=== PATIENT | female | born 1990 ===

== ENCOUNTER 2020-06-02 07:05 | Emergency (ER) | payer MEDICAID, SELFPAY ==
--- NOTE | 2020-06-02 07:09 | ED_ITS ---
HPI - Asthma General Chief Complaint: Asthma Stated Complaint: asthma Time Seen by Provider: 06/02/20 07:09 Source: patient Mode of arrival: ambulatory Limitations: no limitations History of Present Illness MD complaint: asthma attack , shortness of breath and wheezing Onset (ago): week(s) (1) Severity: moderate Context: ran out of meds and allergen exposure Associated symptoms: dry cough Asthma History: childhood onset Treatments Prior to Arrival: inhaled bronchodilator, inhaled steroid and other (has not taken any allergy medications this season) Related Data Current Asthma Therapy: inhaled bronchodilator and inhaled steroid Previous Rx's Medication Instructions Recorded albuterol sulfate 2.5 mg INHALATION Q6H PRN #75 ml 06/02/20 cetirizine 10 mg PO DAILY #30 tab 06/02/20 fluticasone propionate 1 spray INTRANASAL DAILY PRN #9.9 06/02/20 ml prednisone 60 mg PO DAILY 5 Days #15 tab 06/02/20 Allergies Allergy/AdvReac Type Severity Reaction Status Date / Time Iodinated Contrast Media Allergy Intermediate SHORTNESS Verified 06/02/20 07:20 [IV CONTRAST] OF BREATH seafood Allergy Shortness Verified 06/02/20 07:20 of Breath Review of Systems Review of Systems: Constitutional : No Fever, No Chills ENT/Mouth : No Hoarseness, No sore throat, No Rhinorrhea Eyes: No Redness, No Discharge, No Vision Changes Cardiovascular : No Chest Pain, positive SOB, positive Dyspnea on Exertion, No Edema Respiratory : positive Cough, No Sputum, positive Wheezing, Gastrointestinal : No Nausea, No Vomiting, No Diarrhea, No abdominal Pain Genitourinary : No Dysuria, No Hematuria Musculoskeletal : No joint pain, No Myalgias Skin : No rash Neuro : No Weakness, No Numbness, No Headache Psych : No anxiety, depression Heme/Lymph: No Bruising, No Bleeding Endocrine : No Polyuria, No Polydipsia All other systems reviewed and are negative [facility] Past Medical History Medical History (Updated 06/02/20 @ 08:59 by Irish Scruggs DO) Asthma Surgical History History of bilateral tubal ligation Social History Social History (Updated 06/02/20 @ 07:32 by Irish Scruggs DO) Smoking Status: Never smoker Use of substances other than those prescribed or required for medical reasons: No Advance Directives: No Advance Directives Information Provided: Yes Physical Exam Vital Signs: Vital Signs: Vital Signs Temp Pulse Resp BP Pulse Ox 06/02/20 07:20 98.1 F 89 18 136/78 98 Body Mass Index 28.4 Appearance: Alert. Oriented X3. Mild acute distress. Eyes: Pupils equal, round and reactive to light. ENT: Pharynx normal. Neck: Normal inspection. Neck supple. CVS: Normal heart rate and rhythm. Pulses normal. Respiratory: mild respiratory distress. diminished throughout, tachypneic, retractions, diffuse exp and insp wheezes Abdomen: Soft and nontender. Skin: Skin warm and dry. Normal skin color. Normal skin turgor. Extremities: No lower extremity edema. No calf ttp Neuro: Oriented X 3. No motor deficit. No sensory deficit. Course Course Course Narrative: 100%, clear lungs, feels much better after treatment wants to go home MDM - Asthma MDM Narrative Medical decision making narrative: 29 yo female with hx of asthma no oral steroids in a few years also has seasonal allergies but not on any medications, ran out of nebulizer medications, at this time she will need hour long 10mg neb, IV steroids, IV magnesium, labs, CXR, if she improves will start her on flonase/zyrtect/prednisone and refill her asthma medications, dispo per results and findings Lab Data Result diagrams: 06/02/20 07:32 06/02/20 07:32 Labs: Lab Results 06/02/20 06/02/20 Range/Units 07:32 07:32 WBC 5.1 (4.8-10.8) X10*3/uL RBC 4.70 (4.20-5.50) X10*6/uL Hgb 12.7 (12.0-16.0) g/dl Hct 39.4 (37-47) % MCV 83.8 (80-98) fL MCH 27.0 (27.0-33.0) pg MCHC 32.2 (31.0-35.0) g/dl RDW 13.4 (11.0-16.0) % Plt Count 277 (160-400) X10*3/uL MPV 10.5 (9.4-12.3) fL Immature Gran % (Auto) 0.2 (0.0-0.4) % Neut % (Auto) 53.1 (45-73) % Lymph % (Auto) 33.2 (20-40) % [place] % (Auto) 5.5 (2-11) % Eos % (Auto) 7.4 H (0-4) % Baso % (Auto) 0.6 (0-2) % Lymph # (Auto) 1.7 (1.2-4.9) X10*3/uL [place] # (Auto) 0.3 (0.1-1.2) X10*3/uL Eos # (Auto) 0.4 (0.0-0.4) X10*3/uL Baso # (Auto) 0.0 (0.0-0.2) X10*3/uL Abs Immat Gran (auto) 0.01 (0.00-0.03) X10*3/uL Absolute Neuts (auto) 2.7 (2.0-8.3) X10*3/uL Absolute Nucleated RBC 0.000 (0.0-0.012) X10*3/uL Nucleated RBC % (auto) 0.0 (0.0-0.2) /100WBC Sodium 137 (135-145) mmol/L Potassium 4.0 (3.3-5.1) mmol/l Chloride 105 (96-108) mmol/L Carbon Dioxide 26 (22-29) mmol/L Anion Gap 10 L (12-20) BUN 10 (9-16) mg/dL Creatinine 0.71 (0.5-1.4) mg/dL Estim Creat Clear Calc 101.5 Estimated GFR > 60 Random Glucose 91 (60-115) mg/dL Calcium 8.8 (8.4-10.2) mg/dL Critical Care Time Critical Care Time Critical Care Time: Yes Total Critical Care Time: 30 Attestation: I personally attest to this time spent taking care of the patient Discharge Plan Discharge Clinical Impression: Asthma with acute exacerbation Patient Disposition: Home, Self-Care Instructions: Asthma (ED) Prescriptions: New cetirizine 10 mg tablet 10 mg PO DAILY Qty: 30 RF: 2 fluticasone propionate 50 mcg/actuation spray,suspension 1 spray intranasal DAILY PRN (Reason: allergy symptoms) Qty: 9.9 RF: 2 albuterol sulfate 2.5 mg /3 mL (0.083 %) solution for nebulization 2.5 mg inhalation Q6H PRN (Reason: bronchospasm) Qty: 75 RF: 1 prednisone 20 mg tablet 60 mg PO DAILY 5 Days Qty: 15 RF: 0 Referrals: Malissa Taylor [Emergency Nurse] - 2 days (if not better as needed) Stand Alone Forms: Work/School Release
--- NOTE | 2020-06-02 07:18 | XR_ITS ---
EXAMINATION: XR CHEST CLINICAL INFORMATION: Dyspnea COMPARISON: Previous chest x-ray October 2011 TECHNIQUE: Frontal view of the chest was obtained. FINDINGS: No significant abnormality is noted involving the heart, lungs, mediastinum, bony thorax or soft tissues. IMPRESSION: Unremarkable examination.
[2020-06-02 07:20] VITALS: BP 136/78; PULSE 89; RESP 18; TEMP 36.7; O2SAT 98; BMI 28.4
[2020-06-02] MEDS: Albuterol Sulfate (0.083%) 2.5 MG/3 ML VIAL.NEB 10 MG INHALE (07:34)
[2020-06-02 07:42] LABS: MANUAL DIFF FLAG NO
[2020-06-02 07:43] LABS: Basophils Percent Auto 0.6 % (0-2); Eosinophils Absolute Auto 0.4 X10*3/uL (0.0-0.4); Eosinophils Percent Auto 7.4 % (0-4); Hematocrit 39.4 % (37-47); Hemoglobin 12.7 g/dl (12.0-16.0); Imm Gran Abs Auto 0.01 X10*3/uL (0.00-0.03); Imm Gran Pct Auto 0.2 % (0.0-0.4); Lymphocytes Absolute Auto 1.7 X10*3/uL (1.2-4.9); Lymphocytes Percent Auto 33.2 % (20-40); Mean Corpuscular HGB Conc 32.2 g/dl (31.0-35.0); Mean Corpuscular Volume 83.8 fL (80-98); Mean Platelet Volume 10.5 fL (9.4-12.3); Monocytes Absolute Auto 0.3 X10*3/uL (0.1-1.2); Monocytes Percent Auto 5.5 % (2-11); Neutrophils Absolute Auto 2.7 X10*3/uL (2.0-8.3); Neutrophils Percent Auto 53.1 % (45-73); Platelet Count 277 X10*3/uL (160-400); Red Cell Distribution Width 13.4 % (11.0-16.0); White Blood Count 5.1 X10*3/uL (4.8-10.8)
[2020-06-02] MEDS: methylPREDNISolone Sod Succ/PF 125 MG/2 ML VIAL IVPUSH (07:43)
[2020-06-02] MEDS: Magnesium Sulfate/H2O 2 GM/50 ML PIGGYBACK IV (07:43)
[2020-06-02 08:17] LABS: Anion Gap 10 (12-20); Blood Urea Nitrogen 10 mg/dL (9-16); Calcium 8.8 mg/dL (8.4-10.2); Carbon Dioxide 26 mmol/L (22-29); Chloride 105 mmol/L (96-108); Creatinine Clr Calc Pharmacy 101.5; Estimated Glomerular Filt Rate > 60; Glucose Random 91 mg/dL (60-115); Sodium 137 mmol/L (135-145)
[2020-06-02 09:04] VITALS: BP 132/62; PULSE 92; RESP 18; O2SAT 99
== END 2020-06-02 09:27 | disposition home or self-care (01) ==
PROVIDERS: Emergency Provider Emergency Medicine; PCP Internal Medicine
DX: J45.901 Unspecified asthma with (acute) exacerbation (principal); Z91.14 Patient's other noncompliance with medication regimen
CPT/HCPCS: 36415; 71045; 80048; 85025; 96365; 96366; 96375; 99284; 99291; J2930; J3475

== ENCOUNTER 2020-11-16 06:58 | Outpatient (REF) | payer MEDICAID, SELFPAY ==
[2020-11-16 08:34] LABS: Alanine Aminotransferase 20 U/L (0-31); Alkaline Phosphatase 57 U/L (39-117); Anion Gap 13 (12-20); Aspartate Amino Transferase 19 U/L (5-31); Bilirubin Total 0.7 mg/dL (0.0-1.0); Blood Urea Nitrogen 12 mg/dL (9-16); Calcium 8.8 mg/dL (8.4-10.2); Carbon Dioxide 23 mmol/L (22-29); Chloride 106 mmol/L (96-108); Cholesterol 161 mg/dL; Estimated Glomerular Filt Rate > 60; Glucose Random 89 mg/dL (60-115); HDL Cholesterol 56 mg/dL; LDL Cholesterol Calculated 91 mg/dl; Potassium 4.3 mmol/L (3.3-5.1); Sodium 138 mmol/L (135-145); Total Protein 7.2 g/dL (6.5-8.0); Triglycerides 73 mg/dL
[2020-11-16 08:55] LABS: Thyroid Stimulating Hormone 0.57 uIU/mL (0.32-4.0)
== END 2020-11-16 06:59 | disposition home or self-care (01) ==
LOC: HO.LAB 06:58
PROVIDERS: PCP Internal Medicine; Visit Provider Internal Medicine
DX: E05.90 Thyrotoxicosis, unspecified without thyrotoxic crisis or storm (principal); R63.5 Abnormal weight gain
CPT/HCPCS: 36415; 80053; 80061; 84443

== ENCOUNTER 2020-11-21 19:03 | Emergency (ER) | payer MEDICAID, SELFPAY ==
--- NOTE | ~2020-11-21 | US_ITS ---
EXAMINATION: US ABDOMEN COMPLETE CLINICAL INFORMATION: Nausea, vomiting, epigastric and right flank pain. COMPARISON: None TECHNIQUE: Real-time imaging of the abdominal viscera. FINDINGS: PANCREAS: Normal. ABDOMINAL AORTA: The proximal, mid, and distal segments are normal in caliber. INFERIOR VENA CAVA: Visualized portions are normal. LIVER: Normal. The liver is normal in size. The liver contour is normal. Parenchymal echogenicity is normal. No focal hepatic lesion. There is no intrahepatic biliary duct dilatation seen. GALLBLADDER: The gallbladder is contracted from recent ingestion food mild gallbladder wall thickening measuring 0.4 cm is noted. COMMON BILE DUCT: Normal in caliber measuring 0.4 cm in diameter. RIGHT KIDNEY: Normal. No hydronephrosis. No renal calculi or focal parenchymal lesions. The kidney measures 10.4 cm in maximum dimension. LEFT KIDNEY: Normal. No hydronephrosis. No renal calculi or focal parenchymal lesions. The kidney measures 9.5 cm in maximum dimension. SPLEEN: Normal. The spleen measures 9.6 cm in maximum dimension. FREE FLUID: None. US/US abdomen complete IMPRESSION: Unremarkable complete abdomen ultrasound.
[2020-11-21 19:06] VITALS: BP 132/61; PULSE 90; RESP 18; TEMP 36.5; O2SAT 100; BMI 37.8
[2020-11-21 19:46] LABS: Glucose Urine UA NEG (NEG); Leukocyte Esterase Urine 1+ (NEG); Nitrite Urine NEG (NEG); UACC Culture Trigger YES; Urine Blood TRACE (NEG); Urine Ketones NEG (NEG); Urine Protein NEG (NEG-TRACE)
[2020-11-21 19:48] LABS: Appearance Urine CLEAR; Color Urine YELLOW; Urine Pregnancy NEGATIVE (NEGATIVE)
[2020-11-21 19:49] LABS: UPreg QC Valid YES
[2020-11-21 20:13] LABS: Bacteria Urine TRACE /LPF; RBC Urine 0-2 /HPF (0); Squamous Epithelial Cell Urine TRACE /LPF
[2020-11-21 20:17] VITALS: BP 122/58; PULSE 80; RESP 18; TEMP 37.1; O2SAT 100
[2020-11-21 21:13] LABS: MANUAL DIFF FLAG NO
[2020-11-21 21:14] LABS: Basophils Percent Auto 0.6 % (0-2); Eosinophils Absolute Auto 0.2 X10*3/uL (0.0-0.4); Eosinophils Percent Auto 3.4 % (0-4); Hematocrit 34.7 % (37-47); Hemoglobin 11.1 g/dl (12.0-16.0); Imm Gran Abs Auto 0.02 X10*3/uL (0.00-0.03); Imm Gran Pct Auto 0.3 % (0.0-0.4); Lymphocytes Absolute Auto 2.1 X10*3/uL (1.2-4.9); Lymphocytes Percent Auto 28.9 % (20-40); Mean Corpuscular Hemoglobin 26.7 pg (27.0-33.0); Mean Corpuscular Volume 83.6 fL (80-98); Mean Platelet Volume 10.4 fL (9.4-12.3); Monocytes Absolute Auto 0.5 X10*3/uL (0.1-1.2); Monocytes Percent Auto 7.2 % (2-11); Neutrophils Absolute Auto 4.3 X10*3/uL (2.0-8.3); Neutrophils Percent Auto 59.6 % (45-73); Platelet Count 280 X10*3/uL (160-400); Red Blood Count 4.15 X10*6/uL (4.20-5.50); White Blood Count 7.1 X10*3/uL (4.8-10.8)
[2020-11-21] MEDS: 0.9 % Sodium Chloride 1,000 ML 999 ML IVCONT (21:15)
[2020-11-21] MEDS: Ketorolac Tromethamine 15 MG/ML VIAL IVPUSH (21:16)
[2020-11-21] MEDS: ondansetron HCL 4 MG/2 ML VIAL IVPUSH (21:16)
[2020-11-21 21:40] LABS: Alanine Aminotransferase 17 U/L (0-31); Alkaline Phosphatase 59 U/L (39-117); Anion Gap 11 (12-20); Aspartate Amino Transferase 25 U/L (5-31); Bilirubin Direct < 0.2 mg/dL (0.0-0.5); Bilirubin Total 0.3 mg/dL (0.0-1.0); Blood Urea Nitrogen 13 mg/dL (9-16); Calcium 8.7 mg/dL (8.4-10.2); Carbon Dioxide 25 mmol/L (22-29); Chloride 105 mmol/L (96-108); Creatinine Clr Calc Pharmacy 118.3; Estimated Glomerular Filt Rate > 60; Glucose Random 83 mg/dL (60-115); Lipase 25 U/L (8-78); Magnesium 2.2 mg/dL (1.6-2.6); Potassium 4.4 mmol/L (3.3-5.1); Sodium 137 mmol/L (135-145); Total Protein 7.5 g/dL (6.5-8.0)
--- NOTE | 2020-11-21 21:50 | ED.ABDPAIN ---
HPI - Abdominal Pain General Chief Complaint: Abdominal Pain Stated Complaint: side pain Time Seen by Provider: 11/21/20 20:16 Source: patient Mode of arrival: ambulatory History of Present Illness HPI narrative: 30-year-old female with a past medical history of asthma presenting to the ED complaining of RUQ/epigastric abdominal pain radiating to back worsening x1 week with associated nausea. States pain worse after eating. Called PCP earlier this week who scheduled her for outpatient ultrasound which is scheduled for next week, however reports pain was too bad today. Denies vomiting, diarrhea/constipation, dysuria/hematuria MD elicited complaint: abdominal pain Related Data Previous Rx's Medication Instructions Recorded albuterol sulfate 2.5 mg INHALATION Q6H PRN #75 ml 06/02/20 cetirizine 10 mg PO DAILY #30 tab 06/02/20 fluticasone propionate 1 spray INTRANASAL DAILY PRN #9.9 06/02/20 ml prednisone 60 mg PO DAILY 5 Days #15 tab 06/02/20 alum-mag hydroxide-simeth [Maalox 5 ml PO 5XD PRN #30 ml 11/21/20 Advanced] omeprazole 20 mg PO DAILY #10 cap 11/21/20 ondansetron HCl [Zofran] 4 mg PO Q8H PRN #10 tab 11/21/20 Allergies Allergy/AdvReac Type Severity Reaction Status Date / Time Iodinated Contrast Media Allergy Intermediate SHORTNESS Verified 06/02/20 07:20 [IV CONTRAST] OF BREATH seafood Allergy Shortness Verified 06/02/20 07:20 of Breath Review of Systems Review of Systems Constitutional: No Fever, No Chills Cardiovascular: No Chest Pain, No SOB Respiratory: No Cough, No Dyspnea Gastrointestinal: + Nausea, No Vomiting, No Diarrhea, No Constipation, + Abdominal pain Genitourinary: No Dysuria, No Urinary Frequency, No Hematuria, + Flank Pain, No Urinary Flow Changes, No Hesitancy Musculoskeletal: No joint pain, No Myalgias, No Joint Swelling Skin: No Skin Lesions, No rash Yes all other systems are reviewed and are negative Physical Exam Vital Signs: Vital Signs: Last Vital Signs Temp 98.7 F 11/21/20 22:07 Pulse 79 11/21/20 22:07 Resp 18 11/21/20 22:07 BP 119/59 L 11/21/20 22:07 Pulse Ox 98 11/21/20 22:07 Body Mass Index 37.8 Const: General: cooperative, healthy appearing and comfortable Orientation/consciousness: patient oriented x3 Limitations: no limitations HENMT: Head: Yes normal to inspection Ears: hearing grossly normal bilaterally General nose exam: Normal external nose present Face and sinus: Yes normal facial exam Eyes: General: appearance normal, both eyes and all related structures EOM: EOMs intact bilaterally Neck: Neck: Yes normal visual inspection Resp: Effort & Inspection: normal respiratory effort Cardio: Rate: regular rate GI: Inspection: Yes normal to inspection Palpation (GI): Soft to palpation, Tenderness to palpation present (GI) in the epigastrum and in the RUQ, no guarding and not rigid : General: Yes CVA tenderness on the right Skin: Rashes: no rashes Wounds: no wounds Neuro: General: patient oriented x3 Gait exam (Neuro): Normal gait present Extrem: General: Yes normal to inspection Course Course Course Narrative: -labs unremarkable, UA negative, negative US abdomen complete IMPRESSION: Unremarkable complete abdomen ultrasound >> results discussed with patient including worrisome signs and symptoms and strict return precautions. She is to follow-up with GI outpatient. She verbalized understanding feel safe for discharge home MDM - Abdominal Pain MDM Narrative Medical decision making narrative: 30-year-old female with a past medical history of asthma presenting to the ED complaining of RUQ/epigastric abdominal pain radiating to back worsening x1 week with associated nausea. On exam VSS, NAD/well-appearing, abdomen soft with RUQ/epigastric tenderness to palpation and right CVAT, concern for cholecystitis/cholelithiasis vs pancreatitis vs renal stone/pyelo. Lower concern for appendicitis/diverticulitis Plan: Labs, UA, abdomen ultrasound, IVF, symptomatic treatment, reassess Medical Records Attestation: I reviewed the patient's medical records. Lab Data Attestation: I reviewed the patient's lab results. Result diagrams: 11/21/20 21:09 11/21/20 21:09 Labs: Lab Results 11/21/20 11/21/20 11/21/20 Range/Units 19:16 19:16 21:09 WBC 7.1 (4.8-10.8) X10*3/uL RBC 4.15 L (4.20-5.50) X10*6/uL Hgb 11.1 L (12.0-16.0) g/dl Hct 34.7 L (37-47) % MCV 83.6 (80-98) fL MCH 26.7 L (27.0-33.0) pg MCHC 32.0 (31.0-35.0) g/dl RDW 14.0 (11.0-16.0) % Plt Count 280 (160-400) X10*3/uL MPV 10.4 (9.4-12.3) fL Immature Gran % (Auto) 0.3 (0.0-0.4) % Neut % (Auto) 59.6 (45-73) % Lymph % (Auto) 28.9 (20-40) % [place] % (Auto) 7.2 (2-11) % Eos % (Auto) 3.4 (0-4) % Baso % (Auto) 0.6 (0-2) % Lymph # (Auto) 2.1 (1.2-4.9) X10*3/uL [place] # (Auto) 0.5 (0.1-1.2) X10*3/uL Eos # (Auto) 0.2 (0.0-0.4) X10*3/uL Baso # (Auto) 0.0 (0.0-0.2) X10*3/uL Abs Immat Gran (auto) 0.02 (0.00-0.03) X10*3/uL Absolute Neuts (auto) 4.3 (2.0-8.3) X10*3/uL Absolute Nucleated RBC 0.000 (0.0-0.012) X10*3/uL Nucleated RBC % (auto) 0.0 (0.0-0.2) /100WBC Hold Blue Top Sodium (135-145) mmol/L Potassium (3.3-5.1) mmol/L Chloride (96-108) mmol/L Carbon Dioxide (22-29) mmol/L Anion Gap (12-20) BUN (9-16) mg/dL Creatinine (0.5-1.4) mg/dL Estim Creat Clear Calc Estimated GFR Random Glucose (60-115) mg/dL Calcium (8.4-10.2) mg/dL Magnesium (1.6-2.6) mg/dL Total Bilirubin (0.0-1.0) mg/dL Direct Bilirubin (0.0-0.5) mg/dL AST (5-31) U/L ALT (0-31) U/L Alkaline Phosphatase (39-117) U/L Total Protein (6.5-8.0) g/dL Albumin (3.5-5.0) g/dL Lipase (8-78) U/L Urine Color YELLOW Urine Appearance CLEAR Urine pH 6.0 (5.0-8.0) Ur Specific [place] 1.020 (1.005-1.025) Urine Protein NEG (NEG-TRACE) MG/DL Urine Glucose (UA) NEG (NEG) MG/DL Urine Ketones NEG (NEG) MG/DL Urine Blood TRACE (NEG) Urine Nitrite NEG (NEG) Ur Leukocyte Esterase 1+ H (NEG) Urine RBC 0-2 (0) /HPF Urine WBC 1-4 (0-4) /HPF Ur Squamous Epith Cells TRACE /LPF Urine Bacteria TRACE /LPF Urine Test NEGATIVE (NEGATIVE) 11/21/20 11/21/20 Range/Units 21:09 21:09 WBC (4.8-10.8) X10*3/uL RBC (4.20-5.50) X10*6/uL Hgb (12.0-16.0) g/dl Hct (37-47) % MCV (80-98) fL MCH (27.0-33.0) pg MCHC (31.0-35.0) g/dl RDW (11.0-16.0) % Plt Count (160-400) X10*3/uL MPV (9.4-12.3) fL Immature Gran % (Auto) (0.0-0.4) % Neut % (Auto) (45-73) % Lymph % (Auto) (20-40) % [place] % (Auto) (2-11) % Eos % (Auto) (0-4) % Baso % (Auto) (0-2) % Lymph # (Auto) (1.2-4.9) X10*3/uL [place] # (Auto) (0.1-1.2) X10*3/uL Eos # (Auto) (0.0-0.4) X10*3/uL Baso # (Auto) (0.0-0.2) X10*3/uL Abs Immat Gran (auto) (0.00-0.03) X10*3/uL Absolute Neuts (auto) (2.0-8.3) X10*3/uL Absolute Nucleated RBC (0.0-0.012) X10*3/uL Nucleated RBC % (auto) (0.0-0.2) /100WBC Hold Blue Top SEE NOTE Sodium 137 (135-145) mmol/L Potassium 4.4 (3.3-5.1) mmol/L Chloride 105 (96-108) mmol/L Carbon Dioxide 25 (22-29) mmol/L Anion Gap 11 L (12-20) BUN 13 (9-16) mg/dL Creatinine 0.70 (0.5-1.4) mg/dL Estim Creat Clear Calc 118.3 Estimated GFR > 60 Random Glucose 83 (60-115) mg/dL Calcium 8.7 (8.4-10.2) mg/dL Magnesium 2.2 (1.6-2.6) mg/dL Total Bilirubin 0.3 (0.0-1.0) mg/dL Direct Bilirubin < 0.2 (0.0-0.5) mg/dL AST 25 (5-31) U/L ALT 17 (0-31) U/L Alkaline Phosphatase 59 (39-117) U/L Total Protein 7.5 (6.5-8.0) g/dL Albumin 4.0 (3.5-5.0) g/dL Lipase 25 (8-78) U/L Urine Color Urine Appearance Urine pH (5.0-8.0) Ur Specific [place] (1.005-1.025) Urine Protein (NEG-TRACE) MG/DL Urine Glucose (UA) (NEG) MG/DL Urine Ketones (NEG) MG/DL Urine Blood (NEG) Urine Nitrite (NEG) Ur Leukocyte Esterase (NEG) Urine RBC (0) /HPF Urine WBC (0-4) /HPF Ur Squamous Epith Cells /LPF Urine Bacteria /LPF Urine Test (NEGATIVE) Discharge Plan Discharge Clinical Impression: Abdominal pain Qualifiers: Abdominal location: right upper quadrant Qualified Code(s): R10.11 - Right upper quadrant pain Patient Disposition: Home, Self-Care Instructions: Abdominal Pain (ED) Additional Instructions: Your blood work and ultrasound were unremarkable Zofran as antinausea medication, take as needed Omeprazole and Maalox will help with acid reflux You need to follow-up with her primary care doctor as well as a GI doctor If her symptoms persist or worsen, become unbearable, your unable eat or drink return to the ED Prescriptions: New ondansetron HCl [Zofran] 4 mg tablet 4 mg PO Q8H PRN (Reason: nausea and vomiting) Qty: 10 RF: 0 alum-mag hydroxide-simeth [Maalox Advanced] 200-200-20 mg/5 mL suspension 5 ml PO 5XD PRN (Reason: dyspepsia) Qty: 30 RF: 0 omeprazole 20 mg capsule,delayed release(DR/EC) 20 mg PO DAILY Qty: 10 RF: 0 No Action cetirizine 10 mg tablet 10 mg PO DAILY Qty: 30 RF: 2 fluticasone propionate 50 mcg/actuation spray,suspension 1 spray intranasal DAILY PRN (Reason: allergy symptoms) Qty: 9.9 RF: 2 albuterol sulfate 2.5 mg /3 mL (0.083 %) solution for nebulization 2.5 mg inhalation Q6H PRN (Reason: bronchospasm) Qty: 75 RF: 1 prednisone 20 mg tablet 60 mg PO DAILY 5 Days Qty: 15 RF: 0 Referrals: Cecil David MD [Physician] - 1 week [facility] Past Medical History Attestation statement: The following information was validated with the patient. Medical History (Updated 11/21/20 @ 23:11 by ELIO Bruce) Asthma Surgical History History of bilateral tubal ligation Social History Social History (Updated 06/02/20 @ 07:32 by Irish Scruggs DO) Smoking Status: Never smoker Advance Directives: No Advance Directives Information Provided: No
[2020-11-21 22:07] VITALS: BP 119/59; PULSE 79; RESP 18; TEMP 37.1; O2SAT 98
== END 2020-11-21 23:26 | disposition home or self-care (01) ==
PROVIDERS: Physician Assistant; Emergency Provider Emergency Medicine
DX: R10.11 Right upper quadrant pain (principal); J45.909 Unspecified asthma, uncomplicated; Z79.899 Other long term (current) drug therapy
CPT/HCPCS: 36415; 76700; 80048; 80076; 81001; 81003; 81025; 83690; 83735; 85025; 87086; 96361; 96374; 96375; 99283; 99284; J1885; J2405

== ENCOUNTER 2021-04-12 15:21 | Outpatient (REF) | payer MEDICAID, SELFPAY ==
[2021-04-12 15:59] LABS: COVID-19 Test Negative (Negative)
== END 2021-04-12 15:22 | disposition home or self-care (01) ==
LOC: HO.LAB 15:21
PROVIDERS: PCP Internal Medicine; Referring Provider Internal Medicine; Visit Provider Internal Medicine
DX: Z20.822 Contact with and (suspected) exposure to COVID-19 (principal)
CPT/HCPCS: 36415; 87635; C9803

== ENCOUNTER 2021-07-15 05:27 | Emergency (ER) | payer OTHER, MEDICAID, SELFPAY ==
--- NOTE | ~2021-07-15 | XR_ITS ---
EXAMINATION: XR ANKLE, RIGHT CLINICAL INFORMATION: Fall COMPARISON: None TECHNIQUE: AP, lateral, and mortise views of the right ankle. FINDINGS: Osseous alignment is anatomic. No acute fracture is seen. There is mild soft tissue swelling about the ankle. XR/XR ankle RT min 3V IMPRESSION: Mild soft tissue swelling without acute osseous findings.
--- NOTE | 2021-07-15 05:38 | ED.LOWEXIN ---
HPI - Extremity Injury (Lower) General Stated Complaint: ? 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[place] the room which was fed slipped and fell complaining of pain in the right ankle and left knee able to ambulate no other injuries Related Data Previous Rx's Medication Instructions Recorded albuterol sulfate 2.5 mg (3 mL) INHALATION Q6H PRN 06/02/20 #75 ml cetirizine 10 mg tablet 10 mg PO DAILY #30 tab 06/02/20 fluticasone propionate 50 1 spray INTRANASAL DAILY PRN #9.9 06/02/20 mcg/actuation nasal ml spray,suspension prednisone 20 mg tablet 60 mg PO DAILY 5 Days #15 tab 06/02/20 aluminum-mag hydroxide-simethicone 5 ml PO 5XD PRN #30 ml 11/21/20 200 mg-200 mg-20 mg/5 mL oral susp (Maalox Advanced) omeprazole 20 mg capsule,delayed 20 mg PO DAILY #10 cap 11/21/20 release ondansetron HCl 4 mg tablet 4 mg PO Q8H PRN #10 tab 11/21/20 (Zofran) ibuprofen 600 mg tablet 600 mg PO Q6H PRN #20 tab 07/15/21 Allergies Allergy/AdvReac Type Severity Reaction Status Date / Time Iodinated Contrast Media Allergy Intermediate SHORTNESS Verified 06/02/20 07:20 [IV CONTRAST] OF BREATH seafood Allergy Shortness Verified 06/02/20 07:20 of Breath Review of Systems Review of Systems: Yes all other systems are reviewed and are negative [facility] Past Medical History Medical History Asthma Surgical History History of bilateral tubal ligation Social History Social History Advance Directives: No Advance Directives Information Provided: Yes Physical Exam Const: General: comfortable and no acute distress Orientation/consciousness: patient oriented x3 HENMT: Head: Yes normocephalic and Yes atraumatic Neck: Neck: Yes normal visual inspection, Yes full ROM and No tender Chest: Chest palpation & inspection: normal inspection of the chest and normal palpation of entire chest wall Resp: Effort & Inspection: normal respiratory effort Auscultation: clear to auscultation bilaterally Cardio: Palpation: normal PMI Rate: regular rate Rhythm: regular rhythm GI: Inspection: Yes normal to inspection Palpation (GI): Soft to palpation and nontender : General: Yes no CVA tenderness Back/Spine/Pelvis: Back: no CVA tenderness Thoracic/Lumbar Spine: No thoracic spinal tenderness and No lumbar spinal tenderness Neuro: General: patient oriented x3 and gait normal Extrem: Knee images: 1. Superficial abrasion left knee no joint swelling good range of movement patient able to bear weight without significant pain Ankle/foot/toe images: 1. Mild soft tissue swelling with tenderness good range of movement no deformity neurovascular intact MDM - Extremity Injury (Lower) MDM Narrative Medical decision making narrative: Patient with right ankle sprain after minor fall x-ray negative for fracture will place Aircast and discharge patient home patient able to ambulate and bear weight Differential Diagnosis Differential diagnosis: Likely ankle sprain and strain Discharge Plan Discharge Clinical Impression: Right ankle sprain Qualifiers: Encounter type: initial encounter Involved ligament of ankle: tibiofibular ligament Qualified Code(s): S93.431A - Sprain of tibiofibular ligament of right ankle, initial encounter Patient Disposition: Home, Self-Care Instructions: Ankle Sprain (ED) Additional Instructions: Wear the splint for support Ibuprofen for pain Prescriptions: New ibuprofen 600 mg tablet 600 mg PO Q6H PRN (Reason: pain) Qty: 20 RF: 0 No Action cetirizine 10 mg tablet 10 mg PO DAILY Qty: 30 RF: 2 fluticasone propionate 50 mcg/actuation spray,suspension 1 spray intranasal DAILY PRN (Reason: allergy symptoms) Qty: 9.9 RF: 2 albuterol sulfate 2.5 mg /3 mL (0.083 %) solution for nebulization 2.5 mg inhalation Q6H PRN (Reason: bronchospasm) Qty: 75 RF: 1 prednisone 20 mg tablet 60 mg PO DAILY 5 Days Qty: 15 RF: 0 ondansetron HCl [Zofran] 4 mg tablet 4 mg PO Q8H PRN (Reason: nausea and vomiting) Qty: 10 RF: 0 alum-mag hydroxide-simeth [Maalox Advanced] 200-200-20 mg/5 mL suspension 5 ml PO 5XD PRN (Reason: dyspepsia) Qty: 30 RF: 0 omeprazole 20 mg capsule,delayed release(DR/EC) 20 mg PO DAILY Qty: 10 RF: 0
[2021-07-15] MEDS: Ibuprofen 600 MG TABLET PO (05:41)
[2021-07-15 06:10] VITALS: BP 124/78; PULSE 74; RESP 16; TEMP 36.9; O2SAT 98; BMI 37.4
== END 2021-07-15 06:57 | disposition home or self-care (01) ==
PROVIDERS: Emergency Provider Internal Medicine; PCP Internal Medicine
DX: S93.431A Sprain of tibiofibular ligament of right ankle, initial encounter (principal); M25.571 Pain in right ankle and joints of right foot; W01.0XXA Fall on same level from slipping, tripping and stumbling without subsequent striking against object, initial encounter; Y93.E9 Activity, other interior property and clothing maintenance; Y92.009 Unspecified place in unspecified non-institutional (private) residence as the place of occurrence of the external cause; Y99.9 Unspecified external cause status; Z79.899 Other long term (current) drug therapy
CPT/HCPCS: 73610; 99283

== ENCOUNTER 2022-03-21 20:43 | Emergency (ER) | payer MEDICAID, SELFPAY ==
--- NOTE | ~2022-03-21 | XR_ITS ---
EXAMINATION: RIGHT ANKLE, RIGHT FOOT CLINICAL INFORMATION: Rolled ankle COMPARISON: Right ankle 07/15/2021 TECHNIQUE: 2 views right ankle, 3 views right foot FINDINGS: No significant soft tissue swelling, fractures or dislocations are seen. XR/XR foot RT 2V IMPRESSION: No evidence of a traumatic osseous injury.
--- NOTE | ~2022-03-21 | XR_ITS ---
EXAMINATION: RIGHT ANKLE, RIGHT FOOT CLINICAL INFORMATION: Rolled ankle COMPARISON: Right ankle 07/15/2021 TECHNIQUE: 2 views right ankle, 3 views right foot FINDINGS: No significant soft tissue swelling, fractures or dislocations are seen. XR/XR ankle RT 2V IMPRESSION: No evidence of a traumatic osseous injury.
[2022-03-21 21:55] VITALS: BP 116/62; PULSE 89; RESP 18; TEMP 37.1; O2SAT 100; BMI 41.1
[2022-03-21] MEDS: Ibuprofen 600 MG TABLET PO (21:58)
--- NOTE | 2022-03-21 22:40 | ED.LOWEXIN ---
HPI - Extremity Injury (Lower) General Chief Complaint: Extremity Injury, Lower Stated Complaint: ?right ankle sprain Source: patient Mode of arrival: ambulatory Limitations: no limitations History of Present Illness HPI Narrative: 31-year-old female presents with right lower extremity injury. Stated that she was hanging curtains and stepped down off of a two-step step ladder and rolled her ankle. She noted pain and swelling to the lateral side, and states that she is having a difficult she does not report any other injuries, and has been resting icing and elevating the injury to help reduce pain and swelling with poor effect. She does not report loss of sensation, or any other injury from this incident. complaint: ankle injury Onset (ago): day(s) (1) Type of Injury: unknown Place: home Severity: moderate Severity scale (1-10): 6 Relieving factors: NSAID and rest Exacerbating factors: weight bearing, movement and palpation Context: direct blow Associated symptoms: swelling and able to partially bear weight Other symptoms: none Treatments prior to arrival: cold therapy and NSAIDS Related Data Previous Rx's Medication Instructions Recorded albuterol sulfate 2.5 mg/3 mL 2.5 mg (3 mL) inhalation Q6H PRN 06/02/20 (0.083 %) solution for nebulization bronchospasm #75 mL cetirizine 10 mg tablet 10 mg PO DAILY #30 tabs 06/02/20 fluticasone propionate 50 1 spray intranasal DAILY PRN 06/02/20 mcg/actuation nasal allergy symptoms #9.9 mL spray,suspension prednisone 20 mg tablet 60 mg PO DAILY 5 days #15 tabs 06/02/20 aluminum-mag hydroxide-simethicone 5 ml PO 5XD PRN dyspepsia #30 mL 11/21/20 200 mg-200 mg-20 mg/5 mL oral susp (Maalox Advanced) omeprazole 20 mg capsule,delayed 20 mg PO DAILY #10 caps 11/21/20 release ondansetron HCl 4 mg tablet 4 mg PO Q8H PRN nausea and 11/21/20 (Zofran) vomiting #10 tabs ibuprofen 600 mg tablet 600 mg PO Q6H PRN pain #20 tabs 07/15/21 Allergies Allergy/AdvReac Type Severity Reaction Status Date / Time Iodinated Contrast Media Allergy Intermediate SHORTNESS Verified 03/21/22 21:54 [IV CONTRAST] OF BREATH seafood Allergy Shortness Verified 03/21/22 21:54 of Breath Review of Systems Review of Systems: Constitutional: No Fever, No Chills ENT/Mouth: No Ear Pain, No Hoarseness, No sore throat Eyes: No Eye Pain, No Swelling, No Redness, No Foreign Body Cardiovascular: No Chest Pain, No SOB Respiratory: No Cough, No Dyspnea Gastrointestinal: No Nausea, No Vomiting, No Diarrhea, No abdominal Pain Genitourinary: No Dysuria, No Hematuria Musculoskeletal: positive right ankle pain, No Myalgias, No Joint Swelling Skin: No Skin lacerations, No rash Neuro: No Weakness, No Numbness, No Paresthesias, No Loss of Consciousness, No Dizziness, No Headache Psych: No Anxiety/Panic, No Depression Heme/Lymph: no easy bruising, no Lymphadenopathy Endocrine: No Polyuria, No Polydipsia Yes all other systems are reviewed and are negative [facility] Past Medical History Attestation statement: The following information was validated with the patient. Source: old records reviewed Medical History Asthma Surgical History History of bilateral tubal ligation Social History Social History Advance Directives: No Advance Directives Information Provided: No Physical Exam Vital Signs: Vital Signs: Last Vital Signs Temp 98.7 F 03/21/22 21:55 Pulse 74 03/21/22 23:45 Resp 16 03/21/22 23:45 BP 119/73 03/21/22 23:45 Pulse Ox 100 03/21/22 23:45 O2 Del Method 03/21/22 23:45 BMI result Body Mass Index 41.1 Appearance: Alert. Oriented X3. No acute distress. Eyes: Pupils equal, round and reactive to light. ENT: Pharynx normal. Neck: Normal inspection. Neck supple. CVS: Normal heart rate and rhythm. Pulses normal. Respiratory: No respiratory distress. Breath sounds normal. Abdomen: Soft and nontender. Skin: Skin warm and dry. Normal skin color. Normal skin turgor. Extremities: Swelling noted to the right lateral malleolar process, tenderness noted to palpation. Strength 5/5 to all digits, has flexion and extension, decreased internal and external rotation secondary to pain and swelling. Brisk capillary refill in equal pulses. Neuro: No motor deficit. No sensory deficit. Cranial nerves 2-12 intact. Course Course Course Narrative: 31-year-old female presents for evaluation for the right lower extremity injury after stepping off of a step ladder incorrectly. Stated that she twisted her ankle, noted some swelling and pain to the right lateral aspect of the ankle. She has been resting, icing and elevating with poor effect. X-rays completed while patient was in the emergency department waiting room, negative for acute findings requiring emergent intervention. Patient's physical exam is consistent with sprain, will place patient in [place] wrap and provide crutches. Patient verbalized understanding of and agrees plan of care discharge home. Verbalized understanding of signs and symptoms indicating need for emergent intervention. She does understand that she should follow up with primary care physician and/or orthopedics if pain persists for greater than 2 weeks. MDM - Extremity Injury (Lower) Differential Diagnosis Differential diagnosis: Likely ankle sprain and strain and ankle fracture Medical Records Attestation: I reviewed the patient's medical records. Imaging Data Ankle and foot x-ray: Attestation: I personally reviewed and interpreted this imaging study as follows: Radiologist's impression: EXAMINATION: RIGHT ANKLE, RIGHT FOOT CLINICAL INFORMATION: Rolled ankle? COMPARISON: Right ankle 07/15/2021? TECHNIQUE: 2 views right ankle, 3 views right foot? FINDINGS: No significant soft tissue swelling, fractures or dislocations are seen.? XR/XR ankle RT 2V IMPRESSION: No evidence of a traumatic osseous injury.? Discharge Plan Discharge Clinical Impression: Ankle sprain and strain Patient Disposition: Home, Self-Care Instructions: Ankle Sprain (ED), Crutch Instructions (ED), R.I.C.E. Treatment (ED) Additional Instructions: You were evaluated for right ankle injury. X-rays are negative for fracture. Your physical exam is consistent with grade 2 ankle sprain. Rest ice and elevate the injury. Use crutches as needed for comfort. Use compression wrap as needed to help reduce swelling. Alternate Tylenol 650 mg every 6 hours and Motrin 600 mg every 6 hours as needed for pain management. Write down what time he take these medications to prevent accidental overdose. Follow-up with orthopedics if pain persists greater than 2 weeks. Return to the emergency department for any new, concerning, worsening symptoms. Prescriptions: No Action cetirizine 10 mg tablet 10 mg PO DAILY Qty: 30 2RF fluticasone propionate 50 mcg/actuation spray,suspension 1 spray intranasal DAILY PRN (Reason: allergy symptoms) Qty: 9.9 2RF Rx Instructions: administer into each nostril albuterol sulfate 2.5 mg /3 mL (0.083 %) solution for nebulization 2.5 mg inhalation Q6H PRN (Reason: bronchospasm) Qty: 75 1RF prednisone 20 mg tablet 60 mg PO DAILY 5 Days Qty: 15 0RF ondansetron HCl [Zofran] 4 mg tablet 4 mg PO Q8H PRN (Reason: nausea and vomiting) Qty: 10 0RF alum-mag hydroxide-simeth [Maalox Advanced] 200-200-20 mg/5 mL suspension 5 ml PO 5XD PRN (Reason: dyspepsia) Qty: 30 0RF Rx Instructions: administer between meals and at bedtime omeprazole 20 mg capsule,delayed release(DR/EC) 20 mg PO DAILY Qty: 10 0RF ibuprofen 600 mg tablet 600 mg PO Q6H PRN (Reason: pain) Qty: 20 0RF Referrals: Geetha Huggins PA-C [Physician Director Of Application Development] - (Right-sided Grade 2 ankle sprain) Interventions: ED Discharge Assessment Last Done: 03/22/22 00:06 Discharge Date/Time: 03/22/22 00:07
[2022-03-21 23:45] VITALS: BP 119/73; PULSE 74; RESP 16; O2SAT 100
--- NOTE | 2022-03-22 00:06 | PC.NURSE ---
Reviewed discharge instruction with pt verbalized understanding and work note given.
== END 2022-03-22 00:07 | disposition home or self-care (01) ==
PROVIDERS: Emergency Provider Internal Medicine; PCP Internal Medicine
DX: M25.471 Effusion, right ankle (principal); M25.571 Pain in right ankle and joints of right foot; Z79.899 Other long term (current) drug therapy
CPT/HCPCS: 73600; 73620; 99283

== ENCOUNTER 2022-05-03 15:00 | Outpatient (RCR) | payer MEDICAID, SELFPAY ==
--- NOTE | 2022-03-31 14:12 | MHC.PT.EP ---
[facility] [place] [facility] [place] [facility] [place] Office [address] Nicolas Granda [address] [phone] F: [phone] F: [phone] F: [phone] F: [phone] Physical Therapy Plan of Care Date of Evaluation: Date of Surgery: Diagnosis: R ankle sprain Assessment: 31 y/o F referred to PT s/p R ankle sprain on 03/21/22. She was standing on a stool and changing the window curtains at home, when she stepped down from the window an laterally rolled her ankle. She states she heard a loud pop and was only able to partially WB. She went to the ED that day and imaging was negative for fx. SHe ambulated for 4 days with crutches and compression brace and now ambulates without assistative device. 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 Most difficulty and pain with walking (limps), moving ankle laterally, stairs in step to pattern, and standing. Examination shows decreased R ankle ROM, decreased R ankle strength, increased TTP R lateral ankle/achilles tendon, swelling, and impaired gait pattern. Recommend PT 2x/week for 5 weeks to address impairments, implement HEP, and optimize functional mobility. Recommended pt use lace up brace as the compression brace was too small/tight and painful as well as not giving lateral stability at this time. Of note, states she fractured her R ankle when she was 5 or 6 y/o and was in a cast; it has always been her weaker foot and she has had previous sprains. Frequency and Duration: The patient will be seen 2x/week for 5 weeks Short Term Goals: 3 weeks 1 I with HEP 2. Improve R ankle ROM by 5 degrees each direction Care Home Goals: 5 weeks 1 I with HEP and self management of sx 2 Pt will be able to ambulate with reciprocal gait pattern and pain < 3/10 3. Pt will be able to ascend/descend stairs with rail, step through pattern and pain < 3/10 Treatment Plan: Modalities to reduce pain, spasms and effusion. Manual therapy to restore motion and function. Therapeutic exercise to improve strength and flexibility. Neuromuscular re-education for posture and balance. Therapeutic activities to return to functional activities of daily living. Electronically signed by: Roula Hollingsworth PT Please sign and return to therapist. Thank you for your referral.
--- NOTE | 2022-06-14 14:49 | MHC.PT.DC ---
[facility] [place] Office [place] Office [place] Office [address] Nicolas Granda [address] [phone] F: [phone] F: [phone] F: [phone] F: [phone] Physical Therapy Discharge Report Diagnosis: R ankle sprain Date of Surgery: 03/21/22 Date of Evaluation: 03/31/22 Date of Discharge: 06/14/22 Treatments to Date: 6 Cancellations to Date: 2 No Shows to Date: 3 Discharge Status: Independent with HEP Visit Non-compliance Discharge Summary: D/c secondary to noncompliance with scheduling policy. At time of last visit, I with HEP. Electronically signed by: Roula Hollingsworth PT Please sign and return to therapist. Thank you for your referral.
== END 2022-06-14 14:50 | disposition home or self-care (01) ==
LOC: HO.PT 15:00
PROVIDERS: PCP Internal Medicine; Visit Provider Internal Medicine
DX: S93.431D Sprain of tibiofibular ligament of right ankle, subsequent encounter (principal)
CPT/HCPCS: 97035; 97110; 97112; 97140; 97161

== ENCOUNTER 2022-05-06 11:38 | Day surgery (SDC) | payer MEDICAID, SELFPAY ==
--- NOTE | 2022-05-05 13:00 | P.CONAN_ITS ---
HPI - Anesthesia Eval Consult details Narrative: 31yo F for Upper Endoscopy [facility] Past Medical History Medical History Asthma Surgical History Surgical History History of bilateral tubal ligation Meds Allergies Allergy/AdvReac Type Severity Reaction Status Date / Time Iodinated Contrast Media Allergy Intermediate SHORTNESS Verified 03/21/22 21:54 [IV CONTRAST] OF BREATH seafood Allergy Shortness Verified 03/21/22 21:54 of Breath Exam Exam Date and Time: May 05, 2022 1300 Assessment and Plan Assessment Anesthesia Assessment: Chart Reviewed
[2022-05-06 12:19] VITALS: BP 129/70; PULSE 77; RESP 18; TEMP 36.7; O2SAT 100; BMI 41.5
[2022-05-06 12:31] VITALS: BMI 41.5
[2022-05-06] MEDS: Lactated Ringers 1,000 ML 100 ML IVCONT (12:43)
--- NOTE | 2022-05-06 13:12 | HO.ANESPROP2 ---
HPI - Anesthesia Eval Consult details Narrative: Heartburn [facility] Past Medical History Medical History Asthma Family History Family history of problems with anesthesia: No Surgical History Surgical History History of bilateral tubal ligation History of Problems with Anesthesia: No Social History Social History Patient Tobacco Use Status: Never used Tobacco Use of substances other than those prescribed or required for medical reasons: No Are you DNR?: No Advance Directives: No Advance Directives Information Provided: Yes Recently lost weight without trying: No Meds Allergies Allergy/AdvReac Type Severity Reaction Status Date / Time Iodinated Contrast Media Allergy Intermediate SHORTNESS Verified 03/21/22 21:54 [IV CONTRAST] OF BREATH seafood Allergy Shortness Verified 03/21/22 21:54 of Breath Active Medications: Current Medications Lactated Ringer's (Lr) 1,000 mls @ 100 mls/hr IVCONT .Q10H KATELYN Last Admin: 05/06/22 12:43 Dose: 100 mls/hr Home Medications Medication Instructions Recorded Confirmed Last Taken Type budesonide-formoterol HFA 160 1 inh inhalation BID 05/06/22 05/06/22 Unknown History mcg-4.5 mcg/actuation aerosol inhaler (Symbicort) montelukast 10 mg tablet 10 mg PO DAILY 05/06/22 05/06/22 Unknown History naproxen 500 mg tablet 1 tab PO DAILY 05/06/22 05/06/22 Unknown History Exam Exam Date and Time: May 06, 2022 1312 Height,Weight and Vital Signs: Height 5 ft 1 in Weight 99.79 kg Last Vital Signs Temp 98.0 F 05/06/22 12:19 Pulse 77 05/06/22 12:19 Resp 18 05/06/22 12:19 BP 129/70 05/06/22 12:19 Pulse Ox 100 05/06/22 12:19 O2 Del Method 05/06/22 12:19 Airway Mallampati Class: II TM Dist: >3cm Neck ROM: Full Loose/Missing/Broken Teeth: No Heart: RRR Lungs: CTA Assessment and Plan Assessment Anesthesia Assessment: Anesthesia Plan Discussed and Chart Reviewed Final Anesthetic Review Family History of Problems with Anesthesia: No History of Problems with Anesthesia: No NPO: Yes ASA Class: II Final Preanesthetic Review: No Changes in Pt Med Stat, Meds/Allgs Chart Reviewed, Consent Obtained/Reviewed and Anes Risks/Benef Reviewed Patient Risk: Low Procedure Risk: Low Anesthetic Plan Anesthetic Plan: MAC: Disposition: Standard PACU
[2022-05-06 13:44] VITALS: BP 120/60; PULSE 84; RESP 15; TEMP 36.5; O2SAT 100
--- NOTE | 2022-05-06 13:46 | PM.OP ---
Brief Operative Note Date of Service: 05/06/22 Pre-op diagnosis: GERD Post-op diagnosis: other (Small hiatal hernia, GERD, mild gastritis) Procedure: EGD with biopsies Surgeon: Dipesh Pendleton Anesthesia: MAC Was an Field Marketing Coordinator used for this Procedure?: No Estimated blood loss (mL): 2.0 Pathology: other (A. Descending duodenum B. Gastric antrum C. EG Junction at 35cm) Condition: stable Disposition: PACU
[2022-05-06 14:00] VITALS: BP 124/70; PULSE 73; RESP 14; O2SAT 100
[2022-05-06 14:15] VITALS: BP 121/65; PULSE 71; RESP 14; TEMP 36.5; O2SAT 99
--- NOTE | 2022-05-07 01:50 | OP_ITS ---
SURGEON: Dipesh Pendleton MD INDICATIONS: The patient presents for evaluation of gastroesophageal reflux and abdominal discomfort. Full consent has been obtained from her for this, including risks of bleeding and perforation. PREOPERATIVE DIAGNOSIS: POSTOPERATIVE DIAGNOSIS: PROCEDURE PERFORMED: Esophagogastroduodenoscopy with biopsies. ESTIMATED BLOOD LOSS: COMPLICATIONS: ANESTHESIA: Monitored anesthesia care. ASSISTANTS: SPECIMENS: PREOPERATIVE DIAGNOSES: Gastroesophageal reflux and abdominal discomfort. POSTOPERATIVE DIAGNOSES: Gastroesophageal reflux, abdominal discomfort, small hiatal hernia, mild gastritis, rule out Helicobacter pylori, rule out celiac disease. DESCRIPTION OF PROCEDURE: The patient was placed in the left lateral decubitus position. The Olympus video gastroscope was passed in the posterior oropharynx and upper esophagus under direct vision. The scope was passed slowly into the distal esophagus. The gastroesophageal junction appeared at 35 cm. There was some slight irregularity, but no evidence of esophagitis nor any definitive evidence of Avalos's mucosa. There was a small hiatal hernia. The scope easily entered the stomach. The scope was advanced to pylorus and duodenum was cannulated to the descending portion. The duodenum including the bulb appeared normal without mass or ulceration. Biopsies were obtained from the 2nd and 3rd portions of duodenum. Scope was withdrawn back into the stomach. The gastric antrum had some areas of erythema consistent with gastritis, but no actual erosions nor ulcer disease. There was good peristalsis. Scope was retroflexed visualizing the proximal stomach carefully, which appeared normal, without mass or ulceration. Scope was straightened. Biopsies were obtained in the gastric antrum. The scope was withdrawn back into the esophagus. Biopsies were obtained from the gastroesophageal junction at 35 cm. Proximal to this, the esophageal mucosa appeared normal. The scope was withdrawn from the patient. She tolerated the procedure well and returned to recovery area in stable condition. IMPRESSION: 1. Small hiatal hernia, gastroesophageal reflux. 2. Mild gastritis. PLAN: The results of the biopsies will be checked. She was given a prescription for omeprazole when I saw her earlier this week and I did advise her to use that on a daily basis for symptomatic relief. She does describe that has worked well for her in the past. If H. pylori is present in the gastric biopsies, we could consider treating that as well depending upon how she is doing from a clinical standpoint. She was advised to see me in several months for a followup visit as well. She was advised to not use any aspirin or NSAIDs for 1 week, but to try and minimize their use in general. MD GEORGETTE Oviedo/LIZETH / [id number] MTDD
== END 2022-05-06 15:16 | disposition home or self-care (01) ==
PROVIDERS: PCP Internal Medicine; Visit Provider Internal Medicine
PROC: 0DJ08ZZ Inspection of Upper Intestinal Tract, Via Natural or Artificial Opening Endoscopic (ICD-10-PCS; CPT 43235; principal; 2022-05-06 13:00)
DX: K29.50 Unspecified chronic gastritis without bleeding (principal); K21.9 Gastro-esophageal reflux disease without esophagitis; K44.9 Diaphragmatic hernia without obstruction or gangrene; J45.909 Unspecified asthma, uncomplicated; Z79.51 Long term (current) use of inhaled steroids; Z79.899 Other long term (current) drug therapy; Z91.041 Radiographic dye allergy status; Z98.51 Tubal ligation status
CPT/HCPCS: 43239; 88305; 88342; J2405; J3010

== ENCOUNTER 2022-06-07 07:35 | Outpatient (REF) | payer MEDICAID, SELFPAY ==
[2022-06-07 07:52] LABS: MANUAL DIFF FLAG NO
[2022-06-07 08:19] LABS: Basophils Percent Auto 0.8 % (0-2); Eosinophils Absolute Auto 0.2 X10*3/uL (0.0-0.4); Eosinophils Percent Auto 4.3 % (0-4); Hematocrit 36.2 % (37.0-47.0); Hemoglobin 11.6 g/dl (12.0-16.0); Imm Gran Abs Auto 0.01 X10*3/uL (0.00-0.03); Imm Gran Pct Auto 0.2 % (0.0-0.4); Lymphocytes Absolute Auto 1.5 X10*3/uL (1.2-4.9); Lymphocytes Percent Auto 31.3 % (20-40); Mean Corpuscular Hemoglobin 25.1 pg (27.0-33.0); Mean Corpuscular Volume 78.4 fL (80.0-98.0); Mean Platelet Volume 10.3 fL (9.4-12.3); Monocytes Absolute Auto 0.3 X10*3/uL (0.1-1.2); Monocytes Percent Auto 5.3 % (2-11); Neutrophils Absolute Auto 2.9 x10*3/uL (2.0-8.3); Neutrophils Percent Auto 58.1 % (45-73); Platelet Count 337 X10*3/uL (160-400); Red Blood Count 4.62 X10*6/uL (4.20-5.50); Red Cell Distribution Width 14.4 % (11.0-16.0); White Blood Count 4.9 X10*3/uL (4.8-10.8)
[2022-06-07 08:53] LABS: Alanine Aminotransferase 17 U/L (0-31); Albumin Level 4.2 g/dL (3.5-5.0); Alkaline Phosphatase 71 U/L (39-117); Anion Gap 15 (12-20); Aspartate Amino Transferase 18 U/L (5-31); Bilirubin Total 0.5 mg/dL (0.0-1.0); Blood Urea Nitrogen 13 mg/dL (9-16); Calcium 9.2 mg/dL (8.4-10.2); Carbon Dioxide 24 mmol/L (22-29); Chloride 104 mmol/L (96-108); Estimated Glomerular Filt Rate > 60; Glucose Random 83 mg/dL (60-115); Potassium 4.1 mmol/L (3.3-5.1); Sodium 139 mmol/L (135-145); Total Protein 7.4 g/dL (6.5-8.0)
[2022-06-07 09:13] LABS: Thyroid Stimulating Hormone 0.72 uIU/mL (0.32-4.0)
== END 2022-06-07 07:36 | disposition home or self-care (01) ==
LOC: HO.LAB 07:35
PROVIDERS: PCP Internal Medicine; Visit Provider Internal Medicine
DX: Z00.00 Encounter for general adult medical examination without abnormal findings (principal); L71.8 Other rosacea; J45.909 Unspecified asthma, uncomplicated; G47.33 Obstructive sleep apnea (adult) (pediatric)
CPT/HCPCS: 36415; 80053; 83001; 84443; 85025

== ENCOUNTER 2022-10-04 07:07 | Outpatient (REF) | payer MEDICAID, SELFPAY ==
[2022-10-04 07:26] LABS: MANUAL DIFF FLAG NO
[2022-10-04 09:22] LABS: Basophils Absolute Auto 0.1 X10*3/uL (0.0-0.2); Basophils Percent Auto 0.8 % (0-2); Eosinophils Absolute Auto 0.2 X10*3/uL (0.0-0.4); Eosinophils Percent Auto 2.4 % (0-4); Hematocrit 36.3 % (37.0-47.0); Hemoglobin 11.3 g/dl (12.0-16.0); Imm Gran Abs Auto 0.01 X10*3/uL (0.00-0.03); Imm Gran Pct Auto 0.2 % (0.0-0.4); Lymphocytes Absolute Auto 1.5 X10*3/uL (1.2-4.9); Lymphocytes Percent Auto 24.7 % (20-40); Mean Corpuscular HGB Conc 31.1 g/dl (31.0-35.0); Mean Corpuscular Hemoglobin 24.1 pg (27.0-33.0); Mean Corpuscular Volume 77.6 fL (80.0-98.0); Mean Platelet Volume 10.9 fL (9.4-12.3); Monocytes Absolute Auto 0.3 X10*3/uL (0.1-1.2); Monocytes Percent Auto 5.2 % (2-11); Neutrophils Absolute Auto 4.1 x10*3/uL (2.0-8.3); Neutrophils Percent Auto 66.7 % (45-73); Platelet Count 334 X10*3/uL (160-400); Red Blood Count 4.68 X10*6/uL (4.20-5.50); Red Cell Distribution Width 15.3 % (11.0-16.0); White Blood Count 6.2 X10*3/uL (4.8-10.8)
[2022-10-04 10:23] LABS: Alanine Aminotransferase 17 U/L (0-31); Alkaline Phosphatase 75 U/L (39-117); Anion Gap 13 (12-20); Aspartate Amino Transferase 19 U/L (5-31); Bilirubin Total 0.6 mg/dL (0.0-1.0); Blood Urea Nitrogen 10 mg/dL (9-16); Calcium 8.8 mg/dL (8.4-10.2); Carbon Dioxide 22 mmol/L (22-29); Chloride 108 mmol/L (96-108); Cholesterol 152 mg/dL; Estimated Glomerular Filt Rate > 60; Glucose Random 87 mg/dL (60-115); HDL Cholesterol 39 mg/dL; LDL Cholesterol Calculated 89 mg/dl; Potassium 4.2 mmol/L (3.3-5.1); Sodium 139 mmol/L (135-145); Total Protein 7.1 g/dL (6.5-8.0); Triglycerides 120 mg/dL
== END 2022-10-04 07:08 | disposition home or self-care (01) ==
LOC: HO.LAB 07:07
PROVIDERS: PCP Internal Medicine; Visit Provider Nurse Practitioner Family
DX: L70.0 Acne vulgaris (principal)
CPT/HCPCS: 36415; 80053; 80061; 85025

== ENCOUNTER 2023-01-19 07:54 | Emergency (ER) | payer MEDICAID, SELFPAY ==
--- NOTE | ~2023-01-19 | XR_ITS ---
EXAMINATION: XR CHEST CLINICAL INFORMATION: Cough, shortness of breath. COMPARISON: 06/02/2020 chest radiograph. TECHNIQUE: 2 views of the chest were obtained. FINDINGS: No significant abnormality is noted involving the heart, lungs, mediastinum, bony thorax or soft tissues. XR/XR chest 2V IMPRESSION: No acute cardiopulmonary process.
[2023-01-19 08:02] VITALS: BP 133/60; PULSE 99; RESP 18; TEMP 36.6; O2SAT 99; BMI 41.2
--- NOTE | 2023-01-19 08:43 | ED_ITS ---
HPI - SOB/Dyspnea General Chief Complaint: Upper Respiratory Symptoms Stated Complaint: diff breathing Time Seen by Provider: 01/19/23 08:28 Source: patient and family Mode of arrival: ambulatory Limitations: no limitations History of Present Illness HPI Narrative: 32 yo female with history of asthma presents to the ER for evaluation of shortness of breath, dry hacking cough, chest congestion, runny nose and gene rally not feeling well. She presents with her who has similar symptoms. Patient denies any fever or chills. No chest pain. She reports chest tightness and difficulty breathing when she has a coughing fit. She did not test for COVID at home. She denies any nausea, vomiting, diarrhea, abdominal pain. She feels weak and has muscle aches and headaches. She has been using all of her inhalers as prescribed. MD elicited complaint: shortness of breath and cough Pertinent past history: asthma Onset (ago): day(s) (3) Context: recent illness Timing: progressively worsening Severity: moderate Exacerbating factors: coughing Relieving factors: nothing Known history of: asthma Associated symptoms: cough, wheezing and chest congestion Treatment prior to arrival: none Related Data Home oxygen amount: none Home Medications Medication Instructions Recorded Confirmed budesonide-formoterol HFA 160 1 inh inhalation BID 05/06/22 05/06/22 mcg-4.5 mcg/actuation aerosol inhaler (Symbicort) montelukast 10 mg tablet 10 mg PO DAILY 05/06/22 05/06/22 naproxen 500 mg tablet 1 tab PO DAILY 05/06/22 05/06/22 Previous Rx's Medication Instructions Recorded albuterol sulfate 2.5 mg/3 mL 2.5 mg (3 mL) inhalation Q6H PRN 06/02/20 (0.083 %) solution for nebulization bronchospasm #75 mL cetirizine 10 mg tablet 10 mg PO DAILY #30 tabs 06/02/20 omeprazole 20 mg capsule,delayed 20 mg PO DAILY #10 caps 11/21/20 release albuterol sulfate 90 mcg/actuation 1 inh inhalation QID PRN shortness 01/19/23 aerosol inhaler of breath or wheezing #6.7 grams azithromycin 250 mg tablet See Rx Instructions PO .COMPLEX #6 01/19/23 (Zithromax Z-Wally) tabs benzonatate 100 mg capsule 100 mg PO TID PRN cough #30 caps 01/19/23 prednisone 20 mg tablet 40 mg PO DAILY #10 tabs 01/19/23 Allergies Allergy/AdvReac Type Severity Reaction Status Date / Time Iodinated Contrast Media Allergy Intermediate SHORTNESS Verified 01/19/23 08:02 [IV CONTRAST] OF BREATH seafood Allergy Shortness Verified 01/19/23 08:02 of Breath Review of Systems Review of Systems: Yes all other systems are reviewed and are negative [facility] Past Medical History Medical History Asthma Surgical History History of bilateral tubal ligation Social History Social History Patient Tobacco Use Status: Never used Tobacco Advance Directives: No Advance Directives Information Provided: Yes Physical Exam Vital Signs: Vital Signs: Last Vital Signs Temp 98 F 01/19/23 08:02 Pulse 89 01/19/23 09:03 Resp 16 01/19/23 09:03 BP 133/60 01/19/23 08:02 Pulse Ox 99 01/19/23 08:02 O2 Del Method Room Air 01/19/23 08:02 BMI result Body Mass Index 41.2 Appearance: Alert. Oriented X3. No acute distress. Head: normocephalic, atraumatic. Eyes: Pupils equal, round and reactive to light. ENT: Pharynx normal. No tonsillar swelling or exudate. Neck: Normal inspection. Neck supple. CVS: Normal heart rate and rhythm. Pulses normal. Respiratory: No respiratory distress. Breath sounds normal. Bronchospastic cough, nonproductive. Abdomen: Soft and nontender. +BS x4 Skin: Skin warm and dry. Normal skin color. Normal skin turgor. No rashes. Extremities: No lower extremity edema. No joint swelling. Neuro/psych: Oriented X 3. No motor deficit. No sensory deficit. CN II-XII intact. Normal speech and cognition. Medications Administered Discontinued Medications Generic Name Dose Route Start Last Admin Trade Name Freq PRN Reason Stop Dose Admin Albuterol Sulfate 2.5 mg 01/19/23 08:41 01/19/23 09:02 Albuterol Sulfate (0.083%) 2.5 Mg/3 Ml Vial.Neb INHALE 01/19/23 08:42 2.5 mg ONCE ONE Administration Guaifenesin/Codeine Phosphate 10 ml 01/19/23 08:41 01/19/23 09:31 Guaifen/Codeine Sf 200/20/10ml 10 Ml Liquid PO 01/19/23 08:42 10 ml ONCE ONE Administration Medical Decision Making Medical Decision Making [facility] Narrative: 32-year-old female with history of asthma on Symbicort and p.r.n. albuterol presenting to the ER for evaluation of 3 days of dry hacking cough, chest congestion, runny nose and shortness of breath. Patient reports coughing episodes make her symptoms significantly worse. She rides to the ER with stable vital signs, saturating well. She is a little tachypneic after a coughing fit. She was given a breathing treatment and antitussive. This helped her symptoms immensely. Chest x-ray was reviewed, no evidence of pneumonia. She is negative for COVID. Her is also negative. Her symptoms most likely due to another viral URI. Given her history of asthma will prescribe a course of prednisone and azithromycin for bronchitis. Will give antitussives and mucolytics as well. She will follow-up with her primary care doctor. She is stable for discharge home. Differential Diagnosis Differential Diagnoses: The differential diagnosis associated with the presentation includes Bronchitis, COVID, flu, pneumonia, acute asthma exacerbation, viral URI with cough Lab Data [facility] Lab Attestation statement: I reviewed the patient's lab results. Labs: Lab Results 01/19/23 Range/Units 08:53 COVID-19 (KETTY) Negative (Negative) COVID-19 Clin Com See Note Independent Interpretation I performed an independent interpretation of an: Plain X-Ray Interpretation: Chest x-ray is clear, no pneumonia. Radiology Impression Discussion of test interpretation with radiology: I have reviewed the radiologist's reading. Radiologist Impression: XR/XR chest 2V IMPRESSION: No acute cardiopulmonary process. External Record Review External record reviewed: Outpatient record, Prior outpatient labs and Prior outpatient radiology Prescription Management I considered prescription management with: Antibiotic Chronic Conditions Patient?s care impacted by: Other (Asthma) Critical Care Time Critical Care Time Critical Care Time: No Discharge Plan Discharge Clinical Impression: Bronchitis Patient Disposition: Home, Self-Care Instructions: Acute Bronchitis (ED) Additional Instructions: You tested negative for COVID-19. Your chest x-ray was normal. You're most likely suffering from another viral respiratory infection. Take the prescribed steroid medication to help with inflammation in your lungs as well as the antibiotic that will help decrease the inflammation in your lungs given your history of asthma. Take the prescribed cough medication as needed. Rest and drink plenty of fluid. Take [id number] cold and flu medications as needed for your symptoms. Follow-up with primary care doctor. If you develop new or worsening symptoms call 911 or come back to the ER for further evaluation. Prescriptions: New albuterol sulfate 90 mcg/actuation HFA aerosol inhaler 1 inh inhalation QID PRN (Reason: shortness of breath or wheezing) Qty: 6.7 0RF prednisone 20 mg tablet 40 mg PO DAILY Qty: 10 0RF azithromycin [Zithromax Z-Wally] 250 mg tablet See Rx Instructions .ROUTE .COMPLEX Qty: 6 0RF Rx Instructions: take 500 mg today (day 1), then 250 mg for 4 days (days 2-5) benzonatate 100 mg capsule 100 mg PO TID PRN (Reason: cough) Qty: 30 0RF No Action cetirizine 10 mg tablet 10 mg PO DAILY Qty: 30 2RF albuterol sulfate 2.5 mg /3 mL (0.083 %) solution for nebulization 2.5 mg inhalation Q6H PRN (Reason: bronchospasm) Qty: 75 1RF omeprazole 20 mg capsule,delayed release(DR/EC) 20 mg PO DAILY Qty: 10 0RF naproxen 500 mg tablet 1 tab PO DAILY montelukast 10 mg Tablet 10 mg PO DAILY budesonide-formoterol [Symbicort] 160-4.5 mcg/actuation Hfa Aerosol Inhaler 1 inh INHALATION BID Stand Alone Forms: Work/School Release Interventions: ED Discharge Assessment Last Done: 01/19/23 10:09 Discharge Date/Time: 01/19/23 10:09
[2023-01-19] MEDS: Albuterol Sulfate (0.083%) 2.5 MG/3 ML VIAL.NEB INHALE (09:02)
[2023-01-19 09:03] VITALS: PULSE 89; RESP 16; O2SAT 100
[2023-01-19 09:29] LABS: COVID-19 Test Negative (Negative); IDNOW Serial# BCCEAD1C
[2023-01-19] MEDS: guaiFEN/Codeine SF 200/20/10ML 10 ML LIQUID PO (09:31)
== END 2023-01-19 10:09 | disposition home or self-care (01) ==
PROVIDERS: Physician Assistant; Emergency Provider Emergency Medicine Emergency Medical Services; PCP Internal Medicine
DX: J40 Bronchitis, not specified as acute or chronic (principal); R06.02 Shortness of breath; R05.9 Cough, unspecified; Z20.822 Contact with and (suspected) exposure to COVID-19; Z20.828 Contact with and (suspected) exposure to other viral communicable diseases; Z79.899 Other long term (current) drug therapy
CPT/HCPCS: 71046; 87635; 94640; 99283; 99284

== ENCOUNTER 2023-04-05 14:27 | Outpatient (AMB) | payer MEDICAID, SELFPAY ==
[2023-04-05 14:29] VITALS: BP 128/78; BMI 40.5
--- NOTE | 2023-04-05 14:29 | A.OFFVIS_ITS ---
Intake Vital Signs 04/05/23 14:29 Height 5 ft 1 in Weight 214 lb 5 oz BMI 40.5 BP 128/78 Blood Pressure Location Lt brachial Position Sitting Intake Visit Reasons: New patient Annual Intake Note: Pt c/o: heavier cycles and changes with all cycles within last year [employer] Required: No Accompanied by: Self / Same As Patient Allergies Iodinated Contrast Media [IV CONTRAST] Allergy (Intermediate, Verified 04/05/23 14:33) SHORTNESS OF BREATH seafood Allergy (Verified 04/05/23 14:33) Shortness of Breath Medication List - Last Reconciled 04/05/23 by Manasa Griffin CNM albuterol sulfate 2.5 mg (3 mL) inhalation Q6H PRN albuterol sulfate 90 mcg/actuation 1 inh inhalation QID PRN budesonide-formoterol 160-4.5 mcg/actuation (Symbicort) 1 inh inhalation BID cetirizine 10 mg PO DAILY montelukast 10 mg PO DAILY naproxen 1 tab PO DAILY omeprazole 20 mg PO DAILY Is last menstrual period known: Yes Last menstrual period: 03/28/23 HPI New patient Annual HPI Details 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 She had come to the [facility] for the 1st but then we transferred her at 34 weeks for pre term labor and then she ended up delivering the other children there . She had a tubal ligation after her last child. She thought she was monogamous with her but her cheated on her sometime ago and then she just recently is in the last few days so messages where he was speaking with a prostitute so she is anxious and wants to get tested for STDs. Additionally she has sometimes missed some periods and then when they come they are heavy and every few months she misses 1. She notes some pain in her right and left ovary today and finds that uncomfortable. She does feel she has gained weight over time and is interested in weight loss. She and her early talking about couples therapy. [facility] Medical History Asthma Surgical History History of bilateral tubal ligation Family History Maternal Grandmother Breast cancer Brain cancer Bone cancer Stomach cancer Social History Patient Tobacco Use Status: Never used Tobacco Female Reproductive History Menstrual Date of last menstrual period: 03/28/23 Total pregnancies: 3 Number of Living Children: 3 Date of last pap smear: 09/20/11 (wnl) History of abnormal pap smear: Yes ([place] 2010 ) Physical Exam Vital Signs: Last Vital Signs BP 128/78 04/05/23 14:29 BMI result Body Mass Index 40.5 Const General: healthy appearing, comfortable, no acute distress, well developed and alert Nutritional Appearance: average body habitus Orientation/consciousness: patient oriented x3 Limitations: no limitations HEENT Head: Yes normocephalic Neck Neck: Yes normal visual inspection Chest Chest palpation & inspection: normal inspection of the chest Breast/axilla inspection: normal inspection of the breasts and normal inspection of the axillae Breast/axilla palpation: normal palpation of the breasts and normal palpation of the axillae Resp Effort & Inspection: normal respiratory effort GI Inspection: Yes normal to inspection, No Abdominal wall edema and No distended Palpation (GI): Soft to palpation and nontender General: Yes bladder normal to palpation External Female Exam: normal external appearance and normal appearance of the urethra Speculum Exam - Vagina: normal appearance of the vagina, normal palpation and normal vaginal discharge Speculum Exam - Cervix: normal appearance of the cervix, normal palpation and nontender Bimanual exam- vagina & uterus: normal bimanual exam, normal palpation, uterine size normal, bladder normal to palpation, consistency normal, normal palpation, uterine mobility normal, uterine shape normal, No Cervical tenderness present, non-tender and no cervical motion tenderness Bimanual Exam- Adnexa, other: normal adnexae, no masses, normal and No adnexal tenderness Neuro General: patient oriented x3 Assessment & Plan Assessment & Plan (1) Obesity: Code(s): E66.9 - Obesity, unspecified (2) Screen for sexually transmitted diseases: Code(s): Z11.3 - Encounter for screening for infections with a predominantly sexual mode of transmission (3) Irregular menstruation, unspecified: Code(s): N92.6 - Irregular menstruation, unspecified (4) Hx of abnormal cervical Pap smear: Comment: ASCUS with positive HPV 2010 Code(s): Z87.42 - Personal history of other diseases of the female genital tract (5) Breast cancer screening: Code(s): Z12.39 - Encounter for other screening for malignant neoplasm of breast (6) Pelvic pain: Code(s): R10.2 - Pelvic and perineal pain Plan -----Discussed in this visit the following: healthy balanced diet, regular and consistent exercise, getting recommended health screens, doing the best she can for her particular health concerns, kegel exercises, pap smear screening and followup recommendations, mammography screening and SBE, normal changes in cycles in her life stage--- . Will order pelvic ultrasound to assess for any pathology and will meet with her after words to review findings. Discussed the common interplay of weight gain contributing to increased hormonal milieu and increased estrogen and testosterone contributing to increased facial hair and also periodically amenorrhea which can be related to a missed ovulation. This can be followed by a very heavy late. At some stage. Discussed that it is important not to wait longer than 3 months before treating if at all possible and we would give her medication to bring on her. . Discussed options of weight management referral and I did place 1 for for her. Discussed that weight loss is the main and most important thing to do to help manage the issue with the missed periods and also the increased facial hair and other hormonal changes that occur as well as help her prevent issues such as diabetes fatty liver and other negative effects of high body weight She is going to look around herself for where she would want to go for couples therapy. We will see her after the ultrasound. Testing was done for STIs and I have ordered the blood work for her to go get other blood test done to check as well As smear was done and a full discussion of history of abnormal Paps and also the issue of HPV. she happens to know who she got it from before at that time because she had only had sex with 1 person. Discussed that other than that it is very hard to tell and that usually there is some natural regression that happens with time but we will wait and see with this Pap smear shows. Discussed follow-up if the Pap smear were abnormal. Discussed vaccination that is available these days. Her 15-year-old and 11-year-old have been vaccinated for it. Orders: Orders Bacterial Vaginosis Panel Today Z01.419 - Encounter for gynecological examination (general) (routine) without abnormal findings CT NG by PCR Today [id number] - Encounter for gynecological examination (general) (routine) without abnormal findings Hepatitis B Surface Antigen Today E66.9 - Obesity, unspecified, N92.6 - Irregular menstruation, unspecified, R10.2 - Pelvic and perineal pain, Z11.3 - Encounter for screening for infections with a predominantly sexual mode of transmission, Z12.39 - Encounter for other screening for malignant neoplasm of breast, Z87.42 - Personal history of other diseases of the female genital tract Hepatitis C Antibody Today E66.9 - Obesity, unspecified, N92.6 - Irregular menstruation, unspecified, R10.2 - Pelvic and perineal pain, Z11.3 - Encounter for screening for infections with a predominantly sexual mode of transmission, Z12.39 - Encounter for other screening for malignant neoplasm of breast, Z87.42 - Personal history of other diseases of the female genital tract HIV Ab/Ag Today E66.9 - Obesity, unspecified, N92.6 - Irregular menstruation, unspecified, R10.2 - Pelvic and perineal pain, Z11.3 - Encounter for screening for infections with a predominantly sexual mode of transmission, Z12.39 - Encounter for other screening for malignant neoplasm of breast, Z87.42 - Personal history of other diseases of the female genital tract Syphilis Screen Today E66.9 - Obesity, unspecified, N92.6 - Irregular menstruation, unspecified, R10.2 - Pelvic and perineal pain, Z11.3 - Encounter for screening for infections with a predominantly sexual mode of transmission, Z12.39 - Encounter for other screening for malignant neoplasm of breast, Z87.42 - Personal history of other diseases of the female genital tract US pelvic and transvaginal Today N92.6 - Irregular menstruation, unspecified, R10.2 - Pelvic and perineal pain, Z87.42 - Personal history of other diseases of the female genital tract Pap Smear Today [id number] - Encounter for gynecological examination (general) (routine) without abnormal findings Referrals Medical Weight Management Referral E66.9 - Obesity, unspecified Coding Level of Care Code New Pt Prev Care 18-39yr([id number] Diagnoses Obesity E66.9 Screen for sexually transmitted diseases Z11.3 Irregular menstruation, unspecified N92.6 Hx of abnormal cervical Pap smear Z87.42 Breast cancer screening Z12.39 Pelvic pain R10.2
== END 2023-04-05 15:47 | disposition home or self-care (01) ==
LOC: HO.HWS 14:27
PROVIDERS: PCP Internal Medicine; Visit Provider Advanced Practice Midwife
DX: E66.9 Obesity, unspecified (principal); Z11.3 Encounter for screening for infections with a predominantly sexual mode of transmission; N92.6 Irregular menstruation, unspecified; Z87.42 Personal history of other diseases of the female genital tract; Z12.39 Encounter for other screening for malignant neoplasm of breast; R10.2 Pelvic and perineal pain
CPT/HCPCS: 99385

== ENCOUNTER 2023-04-05 14:27 | Outpatient (REF) | payer MEDICAID, SELFPAY ==
[2023-04-06 16:23] LABS: CT PCR NOT DETECTED (Not Detect.); NG PCR NOT DETECTED (Not Detect.)
[2023-04-07 15:16] LABS: BV Int Neg Control Negative (Negative); BV Int Pos Control Positive (Positive)
[2023-04-10 20:34] LABS: HPV mRNA E6/E7 rflx Not Detected (Not Detected)
== END 2023-04-05 14:28 | disposition home or self-care (01) ==
LOC: HO.LNP 14:27
PROVIDERS: PCP Internal Medicine; Visit Provider Advanced Practice Midwife
DX: Z01.419 Encounter for gynecological examination (general) (routine) without abnormal findings (principal); Z11.3 Encounter for screening for infections with a predominantly sexual mode of transmission; Z12.39 Encounter for other screening for malignant neoplasm of breast; E66.9 Obesity, unspecified; N92.6 Irregular menstruation, unspecified; R10.2 Pelvic and perineal pain
CPT/HCPCS: 0353U; 87480; 87510; 87624; 87660; 88142; 99385

== ENCOUNTER 2023-04-06 13:09 | Outpatient (REF) | payer MEDICAID, SELFPAY ==
[2023-04-06 13:59] LABS: COVID-19 Test Negative (Negative); IDNOW Serial# 9DB6401D
== END 2023-04-06 13:10 | disposition home or self-care (01) ==
LOC: HO.LAB 13:09
PROVIDERS: PCP Internal Medicine; Visit Provider Physician Assistant
DX: Z01.419 Encounter for gynecological examination (general) (routine) without abnormal findings (principal); B34.9 Viral infection, unspecified
CPT/HCPCS: 87635

== ENCOUNTER 2023-04-07 08:48 | Emergency (ER) | payer MEDICAID, SELFPAY ==
--- NOTE | ~2023-04-07 | XR_ITS ---
EXAMINATION: XR CHEST CLINICAL INFORMATION: Cough, shortness of breath. COMPARISON: 01/19/2023 chest radiographs. TECHNIQUE: 2 views of the chest were obtained. FINDINGS: No significant abnormality is noted involving the heart, lungs, mediastinum, bony thorax or soft tissues. XR/XR chest 2V IMPRESSION: No acute cardiopulmonary process.
[2023-04-07 08:53] VITALS: BP 143/92; PULSE 100; RESP 19; TEMP 37.2; O2SAT 97; BMI 40.4
--- NOTE | 2023-04-07 09:21 | ED.URI ---
HPI - URI/Sore Throat General Chief Complaint: Upper Respiratory Symptoms Stated Complaint: chest tightness / cough Time Seen by Provider: 04/07/23 09:17 Source: patient, RN notes reviewed and old records reviewed Mode of arrival: ambulatory History of Present Illness HPI Narrative: 32-year-old female with a past medical history of asthma presenting to the ED complaining of productive cough, congestion, SOB, and chest tightness x 1 week. Admits to using inhalers intermittently at home without relief. Reports SOB worse on exertion. Denies fever/chills, sore throat, recent travel, sick contacts MD elicited complaint: cough and nasal congestion Related Data Home Medications Medication Instructions Recorded Confirmed budesonide-formoterol HFA 160 1 inh inhalation BID 05/06/22 04/05/23 mcg-4.5 mcg/actuation aerosol inhaler (Symbicort) montelukast 10 mg tablet 10 mg PO DAILY 05/06/22 04/05/23 naproxen 500 mg tablet 1 tab PO DAILY 05/06/22 04/05/23 Previous Rx's Medication Instructions Recorded albuterol sulfate 2.5 mg/3 mL 2.5 mg (3 mL) inhalation Q6H PRN 06/02/20 (0.083 %) solution for nebulization bronchospasm #75 mL cetirizine 10 mg tablet 10 mg PO DAILY #30 tabs 06/02/20 omeprazole 20 mg capsule,delayed 20 mg PO DAILY #10 caps 11/21/20 release albuterol sulfate 90 mcg/actuation 1 inh inhalation QID PRN shortness 01/19/23 aerosol inhaler of breath or wheezing #6.7 grams albuterol sulfate 2.5 mg/0.5 mL 5 mg inhalation Q4H PRN shortness 04/07/23 solution for nebulization of breath or wheezing #30 ea albuterol sulfate 90 mcg/actuation 2 puff inhalation Q4-6H PRN 04/07/23 aerosol inhaler shortness of breath or wheezing #6.7 grams prednisone 20 mg tablet 40 mg PO DAILY 5 days #10 tabs 04/07/23 Allergies Allergy/AdvReac Type Severity Reaction Status Date / Time Iodinated Contrast Media Allergy Intermediate SHORTNESS Verified 04/07/23 08:53 [IV CONTRAST] OF BREATH seafood Allergy Shortness Verified 04/07/23 08:53 of Breath Review of Systems Review of Systems: Constitutional:No Fever, No Chills ENT/Mouth: No Ear Pain, + Nasal Congestion, No sore throat, No Rhinorrhea, No Swallowing Difficulty Cardiovascular: +Chest tightness, + SOB Respiratory: + Cough, No Sputum, No Wheezing Gastrointestinal: No Nausea, No Vomiting, No Diarrhea, No Constipation, No Abdominal pain Genitourinary: No Dysuria, No Flank Pain Musculoskeletal: No joint pain, No Myalgias Skin: No Skin Lesions, No rash Neuro: No Weakness Yes all other systems are reviewed and are negative Constitutional: Constitutional: Reports as per [facility] Past Medical History Attestation statement: The following information was validated with the patient. Source: old records reviewed Medical History Asthma Surgical History History of bilateral tubal ligation Family History Family History Maternal Grandmother Breast cancer Brain cancer Bone cancer Stomach cancer Social History Social History Patient Tobacco Use Status: Never used Tobacco Advance Directives: No Physical Exam Vital Signs: Vital Signs: Last Vital Signs Temp 99 F 04/07/23 08:53 Pulse 89 04/07/23 09:58 Resp 22 H 04/07/23 09:58 BP 143/92 H 04/07/23 08:53 Pulse Ox 97 04/07/23 08:53 O2 Del Method Room Air 04/07/23 08:53 BMI result Body Mass Index 40.4 Const: General: cooperative, healthy appearing and no acute distress Orientation/consciousness: patient oriented x3 Limitations: no limitations HEENT: Head: Yes normal to inspection and Yes atraumatic Ears: hearing grossly normal bilaterally General nose exam: Normal external nose present Face and sinus: Yes normal facial exam Throat: Yes posterior oropharynx normal, Yes uvula midline, No uvula laterally displaced and No uvular edema Eyes: General: appearance normal, both eyes and all related structures EOM: EOMs intact bilaterally Neck: Neck: Yes normal visual inspection and Yes no meningeal signs Resp: Effort & Inspection: normal respiratory effort and no respiratory distress Auscultation: wheezes expiratory wheezes and throughout Cardio: Rate: regular rate Heart sounds: S1 normal heart sound present and S2 normal heart sound present Skin: Rashes: no rashes Wounds: no wounds Neuro: General: patient oriented x3, tone normal and no meningeal signs Cranial nerves: Yes CN's II-XII intact bilaterally Gait exam (Neuro): Normal gait present Extrem: General: Yes normal to inspection Course Course Course Narrative: XR chest 2V IMPRESSION: No acute cardiopulmonary process. -COVID negative > on re-evaluation lungs CTA. Reports symptomatic improvement Results discussed with patient including worrisome signs and symptoms and strict return precautions, and when to return to the emergency department. They verbalized understanding and feel safe for discharge at this time. Medications Administered Discontinued Medications Generic Name Dose Route Start Last Admin Trade Name Freq PRN Reason Stop Dose Admin Albuterol/Ipratropium 3 ml 04/07/23 09:34 04/07/23 09:51 Albuterol/Iprat 2.5/0.5mg 3 Ml Ampul.Neb INHALE 04/07/23 09:35 3 ml ONCE ONE Administration Prednisone 40 mg 04/07/23 09:34 04/07/23 09:45 Prednisone 20 Mg Tablet PO 04/07/23 09:35 40 mg ONCE ONE Administration Medical Decision Making Medical Decision Making [facility] Narrative: 32-year-old female with a past medical history of asthma presenting to the ED complaining of productive cough, congestion, SOB, and chest tightness x 1 week. On exam vital signs stable, NAD, nontoxic appearing, lungs with slight end expiratory wheeze, oropharynx WNL, uvula midline. No pitting edema. Concern for viral syndrome vs bronchitis vs PNA. Low suspicion for PE/ACS Plan: CXR, Viral testing, albuterol neb, p.o. prednisone Please refer to course for remaining clinical decision making, interpretation of labs/imaging results, and discussions with consultants and/or family members. Differential Diagnosis Differential Diagnoses: The differential diagnosis associated with the presentation includes As above Admission/Observation Consideration of admission/observation: Escalation of care including admission/observation considered Independent Interpretation I performed an independent interpretation of an: Plain X-Ray Radiology Impression Discussion of test interpretation with radiology: I have reviewed the radiologist's reading. External Record Review External record reviewed: Inpatient record, Office record, Outpatient record, Prior outpatient labs, Prior outpatient radiology, Primary care record and Outside ED record Tests considered The following testing was considered but not selected: As above Prescription Management I considered prescription management with: Pain Medication and Antibiotic Discharge Plan Discharge Clinical Impression: Bronchitis, Asthma Patient Disposition: Home, Self-Care Instructions: Asthma (DC), Acute Bronchitis (ED) Additional Instructions: Your x-rays unremarkable You tested negative for COVID Continue to use inhalers and neb solution In addition take prednisone and follow up with her doctor If symptoms persist or worsen return to the ED Prescriptions: New prednisone 20 mg tablet 40 mg PO DAILY 5 Days Qty: 10 0RF albuterol sulfate 90 mcg/actuation HFA aerosol inhaler 2 puff inhalation Q4-6H PRN (Reason: shortness of breath or wheezing) Qty: 6.7 0RF albuterol sulfate 2.5 mg/0.5 mL solution for nebulization 5 mg inhalation Q4H PRN (Reason: shortness of breath or wheezing) Qty: 30 0RF No Action cetirizine 10 mg tablet 10 mg PO DAILY Qty: 30 2RF albuterol sulfate 2.5 mg /3 mL (0.083 %) solution for nebulization 2.5 mg inhalation Q6H PRN (Reason: bronchospasm) Qty: 75 1RF omeprazole 20 mg capsule,delayed release(DR/EC) 20 mg PO DAILY Qty: 10 0RF naproxen 500 mg tablet 1 tab PO DAILY montelukast 10 mg Tablet 10 mg PO DAILY budesonide-formoterol [Symbicort] 160-4.5 mcg/actuation Hfa Aerosol Inhaler 1 inh INHALATION BID albuterol sulfate 90 mcg/actuation HFA aerosol inhaler 1 inh inhalation QID PRN (Reason: shortness of breath or wheezing) Qty: 6.7 0RF Referrals: Sheela Powell MD [Primary Care Provider] - 5 days Stand Alone Forms: Work/School Release Interventions: ED Discharge Assessment Last Done: 04/07/23 10:18 Discharge Date/Time: 04/07/23 10:21
[2023-04-07] MEDS: predniSONE 20 MG TABLET 40 MG PO (09:45)
[2023-04-07] MEDS: Albuterol/Iprat 2.5/0.5MG 3 ML AMPUL.NEB INHALE (09:51)
[2023-04-07 09:58] VITALS: PULSE 89; RESP 22; O2SAT 97
== END 2023-04-07 10:21 | disposition home or self-care (01) ==
PROVIDERS: Emergency Provider Emergency Medicine Emergency Medical Services; PCP Internal Medicine
DX: J45.909 Unspecified asthma, uncomplicated (principal); E66.9 Obesity, unspecified; Z68.41 Body mass index [BMI] 40.0-44.9, adult; Z79.899 Other long term (current) drug therapy
CPT/HCPCS: 71046; 94640; 99284

== ENCOUNTER 2023-04-17 07:40 | Outpatient (REF) | payer MEDICAID, SELFPAY ==
[2023-04-17 09:13] LABS: HBsAGNum1 0.34 S/CO (0.00-0.99); HIV AB/AG Nonreactive (Nonreactive); HIV Num 1 0.06 S/CO (0.00-0.99); Hepatitis B Surface Antigen Negative (Negative); ~HepC Num1 0.12 S/CO (0.00-0.79); ~Hepatitis C Antibody Nonreactive (Nonreactive)
[2023-04-17 09:14] LABS: Syphilis Screen Nonreactive (Nonreactive)
== END 2023-04-17 07:41 | disposition home or self-care (01) ==
LOC: HO.LAB 07:40
PROVIDERS: PCP Internal Medicine; Visit Provider Advanced Practice Midwife
DX: E66.9 Obesity, unspecified (principal); N92.6 Irregular menstruation, unspecified; R10.2 Pelvic and perineal pain; Z11.3 Encounter for screening for infections with a predominantly sexual mode of transmission; Z12.39 Encounter for other screening for malignant neoplasm of breast; Z87.42 Personal history of other diseases of the female genital tract
CPT/HCPCS: 36415; 86780; 86803; 87340; 87389

== ENCOUNTER 2023-05-02 12:18 | Outpatient (REF) | payer MEDICAID, SELFPAY ==
--- NOTE | ~2023-05-02 | US_ITS ---
EXAMINATION: US PELVIS CLINICAL INFORMATION: Pelvic and perineal pain. COMPARISON: None available. TECHNIQUE: Ultrasound of the pelvis is performed using both transabdominal and transvaginal transducers along with Doppler. Transvaginal imaging is performed due to inadequate visualization transabdominally. FINDINGS: UTERUS: The uterus is anteverted and measures 10.8 x 6.0 x 6.1 cm. The double wall endometrial thickness is 7 mm. The uterus is smooth in contour and has normal myometrial echogenicity. Nabothian cysts are present in the cervix. No definite visible fibroid. ADNEXA: Both ovaries are visualized. There is normal color flow to the adnexa. There is no ovarian torsion. There is no pelvic ascites or fluid collection. Right ovary measures 3.7 x 2.5 x 2.4 cm for a volume of 11.6 mL and appears normal. Left ovary measures 2.6 x 2.3 x 2.4 cm for a volume of 7.5 mL and appears normal. US/US pelvic and transvaginal IMPRESSION: Negative exam.
== END 2023-05-02 12:19 | disposition home or self-care (01) ==
LOC: HO.US 12:18
PROVIDERS: PCP Internal Medicine; Visit Provider Advanced Practice Midwife
DX: R10.2 Pelvic and perineal pain (principal); N92.6 Irregular menstruation, unspecified; Z87.42 Personal history of other diseases of the female genital tract
CPT/HCPCS: 76830; 76856

== ENCOUNTER 2023-05-30 11:28 | Outpatient (AMB) | payer MEDICAID, SELFPAY ==
--- NOTE | 2023-05-30 11:39 | MHC.OFFVIS ---
Intake Vital Signs 05/30/23 11:44 Height 5 ft 1 in Weight 213 lb BMI 40.2 BP 132/80 Intake Visit Reasons: Ultra sound follow up [employer] Required: No Allergies Iodinated Contrast Media [IV CONTRAST] Allergy (Intermediate, Verified 05/30/23 11:45) SHORTNESS OF BREATH seafood Allergy (Verified 05/30/23 11:45) Shortness of Breath Medication List - Last Reconciled 05/30/23 by Manasa Griffin CNM albuterol sulfate 2.5 mg (3 mL) inhalation Q6H PRN albuterol sulfate 90 mcg/actuation 1 inh inhalation QID PRN albuterol sulfate 5 mg inhalation Q4H PRN albuterol sulfate 90 mcg/actuation 2 puffs inhalation Q4-6H PRN budesonide-formoterol 160-4.5 mcg/actuation (Symbicort) 1 inh inhalation BID cetirizine 10 mg PO DAILY montelukast 10 mg PO DAILY naproxen 1 tab PO DAILY omeprazole 20 mg PO DAILY prednisone 40 mg (2 x 20 mg) PO DAILY 5 days Is last menstrual period known: Yes Last menstrual period: 05/27/23 Post menopausal: No HPI Ultra sound follow up HPI Details Patient is here to review her ultrasound results and to go over all of the STI testing that was done as well as her Pap smear. She has a history of abnormal periods and also her partner had cheated on her so she was worried about all STD these and wanted to get checked for everything. She also reports an abnormal Pap smear in 2010 with positive HPV so she needed her Pap smear done as well. She had her tubes tied so was not worried about .. [facility] Medical History Asthma Surgical History History of bilateral tubal ligation Family History Maternal Grandmother Breast cancer Brain cancer Bone cancer Stomach cancer Social History Patient Tobacco Use Status: Never used Tobacco Female Reproductive History Menstrual Date of last menstrual period: 05/27/23 control method: other (tubal ligation) Date of last pap smear: 04/07/23 (negative) Physical Exam Vital Signs: Last Vital Signs BP 132/80 05/30/23 11:44 BMI result Body Mass Index 40.2 Results Reviewed Results Reviewed: Patient: Abebe Thompson MR#: [id number] : 1990 Acct:[id number] Age/Sex: 32 / F ADM Date: 05/02/23 Loc: HO.US Attending Dr: Manasa Griffin CNM Ordering Physician: Manasa Griffin CNM Date of Service: 05/02/23 Procedure(s): US pelvic and transvaginal Accession Number(s): [id number] cc: Sheela Powell MD; Manasa Griffin CNM~ EXAMINATION: US PELVIS CLINICAL INFORMATION: Pelvic and perineal pain. COMPARISON: None available. TECHNIQUE: Ultrasound of the pelvis is performed using both transabdominal and transvaginal transducers along with Doppler. Transvaginal imaging is performed due to inadequate visualization transabdominally. FINDINGS: UTERUS: The uterus is anteverted and measures 10.8 x 6.0 x 6.1 cm. The double wall endometrial thickness is 7 mm. The uterus is smooth in contour and has normal myometrial echogenicity. Nabothian cysts are present in the cervix. No definite visible fibroid. ADNEXA: Both ovaries are visualized. There is normal color flow to the adnexa. There is no ovarian torsion. There is no pelvic ascites or fluid collection. Right ovary measures 3.7 x 2.5 x 2.4 cm for a volume of 11.6 mL and appears normal. Left ovary measures 2.6 x 2.3 x 2.4 cm for a volume of 7.5 mL and appears normal. US/US pelvic and transvaginal IMPRESSION: Negative exam. Dictated By: Aayush Oviedo MD Signed By: <Electronically signed by Aayush Oviedo MD in OV> Name: Abebe Thompson Age/Sex: 32/F Attending: Manasa Griffin CNM : 1990 Submitted by: Manasa Griffin CNM Copies to: Sheela Powell MD MR #: [id number] Status: DEP REF Collected: 04/05/23 Location: [facility] Received: 04/07/23 Interpretation Satisfactory for evaluation. Mild inflammation. Negative for intraepithelial lesion or malignancy. HPV mRNA E6/E7: NOT DETECTED This assay detects E6/E7 viral messenger RNA (mRNA) from 14 high-risk HPV types (16, 18, 31, 33, 35, 39, 45, 51, 52, 56, 58, 59, 66, 68) HPV testing performed by [facility], [place], [place]. See reference laboratory pion of the EMR for entire report. Clinical Information LMP:03/28/23 Previous PAP test:09/20/11, WNL Material Received ThinPrep-Cervical Copies To Sheela Powell MD [address] [address] Manasa Griffin CNM [address] [place] [address] [employer] Cedillo [address] [place] [id number] Electronically Signed By: FLORINA Nickerson (ASCP) 04/25/23 0926 The Pap Test is a screening procedure with the inherent possibility of both false negative and false positive results. Results should be interpreted in the context of historic and current clinical findings. Reliability of the Pap Test is enhanced by performing the test on a regular repetitive basis. Patient: Abebe Thompson Age/Sex: 32[id number] MR#: [id number] Page 1 of 1 05/03/23 1721 Testing done for HIV hepatitis B surface antigen hepatitis C antibodies syphilis, gonorrhea chlamydia trichomoniasis Gardnerella and yeast were all negative. DD/ 1246 Assessment & Plan Assessment & Plan (1) Irregular menstruation, unspecified: Code(s): N92.6 - Irregular menstruation, unspecified (2) Hx of abnormal cervical Pap smear: Comment: ASCUS with positive HPV 2010; negative Pap 2011; no record of Paps till 04/05/2023 -Pap is negative with negative HPV. Code(s): Z87.42 - Personal history of other diseases of the female genital tract (3) Screen for sexually transmitted diseases: Code(s): Z11.3 - Encounter for screening for infections with a predominantly sexual mode of transmission Plan Reviewed all of her test results with her and the plans going forward that she could get tested again if she ever was worried about a re exposure to anything or the possibility of something. Also discussed that her smear was completely normal with negative HPV and it would be reviewed at each annual exam and decisions made about when she should have repeat Pap smears given her history of abnormal with HPV (2010 ASCUS with HPV). She says she is doing well now and I also told her about the portal so she can look up her own information that way. RTC for annuals Coding Level of Care Code Est Pt Level 3 (28289) Diagnoses Irregular menstruation, unspecified N92.6 Hx of abnormal cervical Pap smear Z87.42 Screen for sexually transmitted diseases Z11.3
[2023-05-30 11:44] VITALS: BP 132/80; BMI 40.2
== END 2023-05-30 12:02 | disposition home or self-care (01) ==
LOC: HO.HWSM 11:28
PROVIDERS: PCP Internal Medicine; Visit Provider Advanced Practice Midwife
DX: N92.6 Irregular menstruation, unspecified (principal); Z87.42 Personal history of other diseases of the female genital tract; Z11.3 Encounter for screening for infections with a predominantly sexual mode of transmission
CPT/HCPCS: 99213

== ENCOUNTER → 2023-05-30 11:28 | Outpatient (BNVA) | payer MEDICAID, SELFPAY | PROVIDERS: PCP Internal Medicine; Visit Provider Advanced Practice Midwife | DX: N92.6 Irregular menstruation, unspecified (principal); Z87.42 Personal history of other diseases of the female genital tract | CPT/HCPCS: 99212 ==

== ENCOUNTER 2023-06-30 07:12 | Outpatient (REF) | payer MEDICAID, SELFPAY ==
[2023-06-30 08:21] LABS: Alanine Aminotransferase 18 U/L (0-31); Alkaline Phosphatase 68 U/L (39-117); Anion Gap 9 (12-20); Aspartate Amino Transferase 17 U/L (5-31); Bilirubin Total 0.4 mg/dL (0.0-1.0); Blood Urea Nitrogen 10 mg/dL (9-16); Calcium 8.7 mg/dL (8.4-10.2); Carbon Dioxide 25 mmol/L (22-29); Chloride 109 mmol/L (96-108); Cholesterol 143 mg/dL (<200); Estimated Glomerular Filt Rate > 60; Glucose Random 94 mg/dL (60-115); HDL Cholesterol 44 mg/dL (>40); LDL Cholesterol Calculated 81 mg/dL (<100); Potassium 3.8 mmol/L (3.3-5.1); Sodium 139 mmol/L (135-145); Total Protein 7.4 g/dL (6.5-8.0); Triglycerides 92 mg/dL (<150)
[2023-06-30 08:37] LABS: TSH reflex Free T4 0.36 uIU/mL (0.32-4.0)
== END 2023-06-30 07:13 | disposition home or self-care (01) ==
LOC: HO.LAB 07:12
PROVIDERS: PCP Internal Medicine; Visit Provider Internal Medicine
DX: Z00.00 Encounter for general adult medical examination without abnormal findings (principal); E05.90 Thyrotoxicosis, unspecified without thyrotoxic crisis or storm; G47.33 Obstructive sleep apnea (adult) (pediatric); I10 Essential (primary) hypertension; J45.20 Mild intermittent asthma, uncomplicated
CPT/HCPCS: 36415; 80053; 80061; 84443

== ENCOUNTER 2023-11-13 16:58 | Emergency (ER) | payer MEDICAID, SELFPAY ==
--- NOTE | ~2023-11-13 | XR_ITS ---
EXAMINATION: XR CHEST 2 VIEW CLINICAL INFORMATION: Cough COMPARISON: 04/07/2023 TECHNIQUE: PA and lateral views of the chest obtained. FINDINGS: The lungs are clear. There are no pleural effusions. The cardiomediastinal silhouette is normal. XR/XR chest 2V IMPRESSION: No acute cardiopulmonary disease.
[2023-11-13 17:16] VITALS: BP 141/74; PULSE 93; RESP 22; TEMP 36.7; O2SAT 100; BMI 43.7
--- NOTE | 2023-11-13 18:32 | ED.ASTHMA ---
HPI - Asthma General Chief Complaint: Asthma Stated Complaint: asthma Time Seen by Provider: 11/13/23 18:51 Source: patient Mode of arrival: ambulatory Limitations: no limitations History of Present Illness HPI Narrative: Patient is a 33-year-old female who presents emergency department for evaluation of shortness of breath and reported concern for asthma exacerbation over the past 3 weeks. Reports that she completed a 10 day course of prednisone approximately 4 days ago, she had some improvement in her symptoms for a couple days afterwards but over the past 2 days has began feeling short of breath again, nonproductive cough, has midsternal chest discomfort, pain diffusely through her mid back. She denies any fevers or chills. Denies any known sick contacts however she does work in healthcare. She reports that she has been using her MDI without much improvement, she has unfortunately ran out of solution for her nebulizer and has been unable to use this at home. Related Data Home Medications Medication Instructions Recorded Confirmed budesonide-formoterol HFA 160 1 inh inhalation BID 05/06/22 05/30/23 mcg-4.5 mcg/actuation aerosol inhaler (Symbicort) montelukast 10 mg tablet 10 mg PO DAILY 05/06/22 05/30/23 naproxen 500 mg tablet 1 tab PO DAILY 05/06/22 05/30/23 Previous Rx's Medication Instructions Recorded albuterol sulfate 2.5 mg/3 mL 2.5 mg (3 mL) inhalation Q6H PRN 06/02/20 (0.083 %) solution for nebulization bronchospasm #75 mL cetirizine 10 mg tablet 10 mg PO DAILY #30 tabs 06/02/20 omeprazole 20 mg capsule,delayed 20 mg PO DAILY #10 caps 11/21/20 release albuterol sulfate 90 mcg/actuation 1 inh inhalation QID PRN shortness 01/19/23 aerosol inhaler of breath or wheezing #6.7 grams albuterol sulfate 2.5 mg/0.5 mL 5 mg inhalation Q4H PRN shortness 04/07/23 solution for nebulization of breath or wheezing #30 ea albuterol sulfate 90 mcg/actuation 2 puff inhalation Q4-6H PRN 04/07/23 aerosol inhaler shortness of breath or wheezing #6.7 grams prednisone 20 mg tablet 40 mg (2 x 20 mg) PO DAILY 5 days 04/07/23 #10 tabs polymyxin B sulfate 10,000 1 drp ophthalmic (eye) QID 5 days 06/27/23 unit-trimethoprim 1 mg/mL eye drops #10 mL prednisone 10 mg tablet 10 mg PO DIRECTED 10 days #30 11/02/23 tabs albuterol sulfate 2.5 mg/3 mL 2.5 mg (3 mL) inhalation Q4-6H PRN 11/13/23 (0.083 %) solution for nebulization shortness of breath or wheezing #75 mL azithromycin 250 mg tablet See Rx Instructions PO .COMPLEX #6 11/13/23 tabs benzonatate 100 mg capsule 100 mg PO BID PRN cough #20 caps 11/13/23 Allergies Allergy/AdvReac Type Severity Reaction Status Date / Time Iodinated Contrast Media Allergy Intermediate SHORTNESS Verified 05/30/23 11:45 [IV CONTRAST] OF BREATH seafood Allergy Shortness Verified 05/30/23 11:45 of Breath Review of Systems Review of Systems: Yes all other systems are reviewed and are negative [facility] Past Medical History Attestation statement: The following information was validated with the patient. Source: old records reviewed Medical History Asthma Surgical History History of bilateral tubal ligation Family History Family History Maternal Grandmother Breast cancer Brain cancer Bone cancer Stomach cancer Social History Social History Patient Tobacco Use Status: Never used Tobacco Advance Directives: No Advance Directives Information Provided: Yes Physical Exam Vital Signs: Vital Signs: Last Vital Signs Temp 98.1 F 11/13/23 17:16 Pulse 109 H 11/13/23 19:56 Resp 22 H 11/13/23 19:56 BP 157/76 H 11/13/23 19:56 Pulse Ox 100 11/13/23 19:56 O2 Del Method Nasal Cannula 11/13/23 19:56 BMI result Body Mass Index 43.7 Appearance: Alert.?Oriented to person, place and time. No acute distress.?Normal affect. Eyes: Pupils equal, round and reactive to light.? ENT: Pharynx normal.?? Neck: Normal inspection.? Neck supple.?? CVS: Heart sounds normal. Normal heart rate and rhythm.? Pulses normal.?? Respiratory: No respiratory distress.? Lung sounds clear at the apices, diminished at the bases Abdomen: Soft and non-tender. Normoactive bowel sounds. Skin: Skin warm and dry.? Normal skin color.? .?? Extremities: No lower extremity edema.? No calf ttp? Neuro: Moves all extremities spontaneously. Sensation intact bilaterally. Ambulates with normal steady gait. Course Course Course Narrative: RME performed by Ritika Meza PA-C. Patient is a 33 year old assigned female at presenting to the emergency department with increased shortness of breath / asthma. Detailed physical exam and review of systems are deferred to the bicycle fitter. Imaging and swabs ordered. Patient placed back in the waiting room pending room availability and results. Medications Administered Discontinued Medications Generic Name Dose Route Start Last Admin Trade Name Fredq PRN Reason Stop Dose Admin Albuterol Sulfate 2.5 mg/ 0 mg 11/13/23 19:12 11/13/23 19:17 Albuterol/Ipratropium 3 ml INHALE 11/13/23 19:13 2.5 dose ONCE ONE Administration Medical Decision Making Medical Decision Making MDM Narrative: Patient is a 33-year-old female who presents emergency department for evaluation of shortness of breath and chest/back pain as per HPI. She has recently completed a prednisone taper and had some improvement in her symptoms with this but then they returned. She has had a persistent nonproductive cough. He has been afebrile. Upon examination she appears overall well, speaking clear full sentences. No significant wheezing, in fact lungs are clear at the apices diminished at the bases. Received a DuoNeb updraft in the emergency department without much change in her symptoms. Labs were obtained which reveals no leukocytosis, microcytic anemia that does not meet transfusion criteria. D-dimer was negative, unlikely pulmonary embolism and no risk factors. Mild hypokalemia of 3.1, replenished with 40 mEq orally, otherwise unremarkable CMP. Viral serologies are negative. Chest x-ray is without acute pathology. Suspect symptoms most consistent with bronchitis, feel that she is stable for discharge home and outpatient follow-up with her primary care provider. All questions answered. Differential Diagnosis Differential Diagnoses: The differential diagnosis associated with the presentation includes (As noted above) Admission/Observation Consideration of admission/observation: Escalation of care including admission/observation considered (No hypoxia, no respiratory distress, stable for discharge outpatient follow-up) Lab Data MDM Lab Attestation statement: I reviewed the patient's lab results. (See narrative above) 11/13/23 19:44 11/13/23 19:44 Labs: Lab Results 11/13/23 11/13/23 Range/Units 18:34 19:44 WBC 9.4 (4.8-10.8) X10*3/uL RBC 4.65 (4.20-5.50) X10*6/uL Hgb 11.6 L (12.0-16.0) g/dl Hct 36.1 L (37.0-47.0) % MCV 77.6 L (80.0-98.0) fL MCH 24.9 L (27.0-33.0) pg MCHC 32.1 (31.0-35.0) g/dl RDW 15.9 (11.0-16.0) % Plt Count 310 (160-400) X10*3/uL MPV 10.6 (9.4-12.3) fL Immature Gran % (Auto) 0.3 (0.0-0.4) % Neut % (Auto) 51.5 (45-73) % Lymph % (Auto) 37.4 (20-40) % [place] % (Auto) 3.8 (2-11) % Eos % (Auto) 6.4 H (0-4) % Baso % (Auto) 0.6 (0-2) % Lymph # (Auto) 3.5 (1.2-4.9) X10*3/uL [place] # (Auto) 0.4 (0.1-1.2) X10*3/uL Eos # (Auto) 0.6 H (0.0-0.4) X10*3/uL Baso # (Auto) 0.1 (0.0-0.2) X10*3/uL Abs Immat Gran (auto) 0.03 (0.00-0.03) X10*3/uL Absolute Neuts (auto) 4.8 (2.0-8.3) x10*3/uL Absolute Nucleated RBC 0.000 (0.0-0.012) X10*3/uL Nucleated RBC % (auto) 0.0 (0.0-0.2) /100WBC D-Dimer High Sensitivty < 150 NG/ML Sodium 137 (135-145) mmol/L Potassium 3.1 L (3.3-5.1) mmol/L Chloride 107 (96-108) mmol/L Carbon Dioxide 21 L (22-29) mmol/L Anion Gap 12 (12-20) BUN 14 (9-16) mg/dL Creatinine 0.77 (0.5-1.4) mg/dL Estim Creat Clear Calc 113.6 Estimated GFR > 60 Random Glucose 102 (60-115) mg/dL Calcium 9.2 (8.4-10.2) mg/dL Total Bilirubin 0.2 (0.0-1.0) mg/dL AST 21 (5-31) U/L ALT 27 (0-31) U/L Alkaline Phosphatase 82 (39-117) U/L Total Protein 7.8 (6.5-8.0) g/dL Albumin 4.1 (3.5-5.0) g/dL Influenza Type A (PCR) NEGATIVE (Negative) Influenza Type B (PCR) NEGATIVE (Negative) RSV RNA Qual (PCR) NEGATIVE (Negative) SARS-CoV-2 RNA (RT-PCR) NEGATIVE (Negative) Independent Interpretation I performed an independent interpretation of an: Plain X-Ray (No pneumonia, no pneumothorax, no pleural effusions) Radiology Impression Discussion of test interpretation with radiology: I have reviewed the radiologist's reading. Radiologist Impression: XR/XR chest 2V IMPRESSION: No acute cardiopulmonary disease. Prescription Management I considered prescription management with: Antibiotic Chronic Conditions Patient?s care impacted by: Other (Asthma) Discharge Plan Discharge Clinical Impression: Bronchitis Patient Disposition: Home, Self-Care Instructions: Acute Bronchitis (ED) Prescriptions: New albuterol sulfate 2.5 mg /3 mL (0.083 %) solution for nebulization 2.5 mg inhalation Q4-6H PRN (Reason: shortness of breath or wheezing) Qty: 75 0RF azithromycin 250 mg tablet See Rx Instructions .ROUTE .COMPLEX Qty: 6 0RF Rx Instructions: For 250 mg dose pack: take 500 mg today (day 1), then 250 mg for 4 days (days 2-5) benzonatate 100 mg capsule 100 mg PO BID PRN (Reason: cough) Qty: 20 0RF No Action polymyxin B sulf-trimethoprim 10,000 unit- 1 mg/mL drops 1 drp ophthalmic (eye) QID 5 Days Qty: 10 0RF Rx Instructions: while awake; do not exceed 6 doses in 24 hours cetirizine 10 mg tablet 10 mg PO DAILY Qty: 30 2RF albuterol sulfate 2.5 mg /3 mL (0.083 %) solution for nebulization 2.5 mg inhalation Q6H PRN (Reason: bronchospasm) Qty: 75 1RF omeprazole 20 mg capsule,delayed release(DR/EC) 20 mg PO DAILY Qty: 10 0RF naproxen 500 mg tablet 1 tab PO DAILY montelukast 10 mg Tablet 10 mg PO DAILY budesonide-formoterol [Symbicort] 160-4.5 mcg/actuation Hfa Aerosol Inhaler 1 inh INHALATION BID albuterol sulfate 90 mcg/actuation HFA aerosol inhaler 1 inh inhalation QID PRN (Reason: shortness of breath or wheezing) Qty: 6.7 0RF prednisone 20 mg tablet 40 mg PO DAILY 5 Days Qty: 10 0RF albuterol sulfate 90 mcg/actuation HFA aerosol inhaler 2 puff inhalation Q4-6H PRN (Reason: shortness of breath or wheezing) Qty: 6.7 0RF albuterol sulfate 2.5 mg/0.5 mL solution for nebulization 5 mg inhalation Q4H PRN (Reason: shortness of breath or wheezing) Qty: 30 0RF prednisone 10 mg tablet 10 mg PO DIRECTED 10 Days Qty: 30 0RF Rx Instructions: Follow taper schedule given, 50mg to 10mg over 10 days. Take with food. Referrals: Sheela Powell MD [Primary Care Provider] -
[2023-11-13] MEDS: Albuterol Sulfate 2.5 MG, Albuterol/Iprat 2.5/0.5MG 3 ML 3 ML INHALE (19:17)
[2023-11-13 19:18] VITALS: PULSE 79; RESP 18; O2SAT 100
[2023-11-13 19:18] LABS: Influenza A PCR NEGATIVE (Negative); Influenza B PCR NEGATIVE (Negative); Resp Syncy Virus RNA Qual PCR NEGATIVE (Negative); SARS COV2 PCR INHOUSE NEGATIVE (Negative)
[2023-11-13 19:49] LABS: MANUAL DIFF FLAG NO
[2023-11-13 19:56] VITALS: BP 157/76; PULSE 109; RESP 22; O2SAT 100
[2023-11-13 20:03] LABS: Alanine Aminotransferase 27 U/L (0-31); Albumin Level 4.1 g/dL (3.5-5.0); Alkaline Phosphatase 82 U/L (39-117); Anion Gap 12 (12-20); Aspartate Amino Transferase 21 U/L (5-31); Bilirubin Total 0.2 mg/dL (0.0-1.0); Blood Urea Nitrogen 14 mg/dL (9-16); Calcium 9.2 mg/dL (8.4-10.2); Carbon Dioxide 21 mmol/L (22-29); Chloride 107 mmol/L (96-108); Creatinine Clr Calc Pharmacy 113.6; Estimated Glomerular Filt Rate > 60; Glucose Random 102 mg/dL (60-115); Potassium 3.1 mmol/L (3.3-5.1); Sodium 137 mmol/L (135-145); Total Protein 7.8 g/dL (6.5-8.0)
[2023-11-13 20:05] LABS: Basophils Absolute Auto 0.1 X10*3/uL (0.0-0.2); Basophils Percent Auto 0.6 % (0-2); Eosinophils Absolute Auto 0.6 X10*3/uL (0.0-0.4); Eosinophils Percent Auto 6.4 % (0-4); Hematocrit 36.1 % (37.0-47.0); Hemoglobin 11.6 g/dl (12.0-16.0); Imm Gran Abs Auto 0.03 X10*3/uL (0.00-0.03); Imm Gran Pct Auto 0.3 % (0.0-0.4); Lymphocytes Absolute Auto 3.5 X10*3/uL (1.2-4.9); Lymphocytes Percent Auto 37.4 % (20-40); Mean Corpuscular HGB Conc 32.1 g/dl (31.0-35.0); Mean Corpuscular Hemoglobin 24.9 pg (27.0-33.0); Mean Corpuscular Volume 77.6 fL (80.0-98.0); Mean Platelet Volume 10.6 fL (9.4-12.3); Monocytes Absolute Auto 0.4 X10*3/uL (0.1-1.2); Monocytes Percent Auto 3.8 % (2-11); Neutrophils Absolute Auto 4.8 x10*3/uL (2.0-8.3); Neutrophils Percent Auto 51.5 % (45-73); Platelet Count 310 X10*3/uL (160-400); Red Blood Count 4.65 X10*6/uL (4.20-5.50); Red Cell Distribution Width 15.9 % (11.0-16.0); White Blood Count 9.4 X10*3/uL (4.8-10.8)
[2023-11-13 20:37] LABS: D Dimer High Sensitivity < 150 NG/ML
[2023-11-13 21:08] VITALS: BP 127/75; PULSE 94; RESP 16; TEMP 36.7; O2SAT 100
[2023-11-13] MEDS: Potassium Chloride Packet 20 MEQ PACKET 40 MEQ PO (21:08)
== END 2023-11-13 21:13 | disposition home or self-care (01) ==
PROVIDERS: Nurse Practitioner Family; Emergency Provider Emergency Medicine Emergency Medical Services; PCP Internal Medicine
DX: J40 Bronchitis, not specified as acute or chronic (principal); J45.909 Unspecified asthma, uncomplicated; Z11.52 Encounter for screening for COVID-19; Z20.828 Contact with and (suspected) exposure to other viral communicable diseases
CPT/HCPCS: 0241U; 36415; 71046; 80053; 85025; 85379; 94640; 99284

== ENCOUNTER → 2024-02-27 14:15 | Outpatient (BNVA) | payer OTHER, SELFPAY | PROVIDERS: PCP Internal Medicine | DX: Z13.89 Encounter for screening for other disorder (principal) | CPT/HCPCS: 99202 ==

== ENCOUNTER 2024-04-26 08:03 | Outpatient (AMB) | payer OTHER, SELFPAY ==
[2024-04-26 08:07] VITALS: BP 114/76; PULSE 63; TEMP 37.1; O2SAT 98; BMI 44.6
--- NOTE | 2024-04-26 08:07 | AM.OFFWIN_ITS ---
Intake Vital Signs 04/26/24 08:07 Height 5 ft 1 in Weight 236 lb BMI 44.6 BP 114/76 Blood Pressure Location Rt radial Position Sitting Pulse 63 Pulse Source Pulse Oximeter Temp 98.8 F Temp Source Oral Pulse Oximetry (%) 98 Oxygen Delivery Method Room Air Intake Visit Reasons: EP lung/chest/back pain, cough Intake Note: pt c/o lung/chest/back pain and cough. Started a couple days ago Patient Tobacco Use Status: Never used Tobacco Allergies Iodinated Contrast Media [IV CONTRAST] Allergy (Intermediate, Verified 05/30/23 11:45) SHORTNESS OF BREATH seafood Allergy (Verified 05/30/23 11:45) Shortness of Breath Do you need a note to return to daycare/school/sports/work: Yes HPI HPI Comments History of Present Illness Details Patient is a 33-year-old female with a past medical history of asthma complaining pain in the base of her lungs when she coughs, pressure in her chest when she breathes and when she coughs, a dry cough that has changed to a productive cough this morning and a sore throat. She denies any fevers, ear pain, sinus pain or head congestion. She states she does take 3 different asthma medications, montelukast every night, Symbicort twice daily and an albuterol inhaler as needed. She states she was using the albuterol inhaler much more than normal over the weekend. She states she did see her primary care doctor for this on Monday and they told her that if it persisted, to follow up before the weekend. However, when she called her PCP's office this morning, they were closed. [facility] Medical History Asthma Surgical History History of bilateral tubal ligation Family History Maternal Grandmother Breast cancer Brain cancer Bone cancer Stomach cancer Social History Patient Tobacco Use Status: Never used Tobacco Review of Systems Const All systems reviewed & are unremarkable except as noted in HPI and below Physical Exam Vital Signs: Last Vital Signs Temp 98.8 F 09/06/24 08:07 Pulse 63 04/26/24 08:07 BP 114/76 04/26/24 08:07 Pulse Ox 98 04/26/24 08:07 Oxygen Delivery Method Room Air 04/26/24 08:07 BMI result Body Mass Index 44.6 Const General: cooperative, healthy appearing, comfortable and no acute distress Orientation/consciousness: patient oriented x3 Limitations: no limitations HEENT Head: Yes normal to inspection Ears: hearing grossly normal bilaterally, external ears normal and TM's normal bilaterally General nose exam: Normal external nose present, Normal nares present and No nasal discharge present Face and sinus: Yes normal facial exam and Yes sinuses nontender Mouth: Normal oral and palatal mucosa present and moist mucous membranes Throat: Yes tonsils normal, Yes uvula midline and Yes posterior oropharynx abnormal (Erythema) Eyes General: appearance normal, both eyes and all related structures Neck Neck: Yes normal visual inspection Resp Effort & Inspection: normal respiratory effort, able to speak in complete sentences, Actively coughing, no respiratory distress, not tachypneic, no tripod positioning and no use of accessory muscles Auscultation: clear to auscultation bilaterally Cardio Rate: regular rate Rhythm: regular rhythm Heart sounds: normal S1 and S2 Skin General skin exam: no rashes or lesions noted Neuro General: patient oriented x3 Extrem General: Yes normal to inspection and Yes no clubbing, cyanosis or edema Assessment & Plan Assessment & Plan (1) URI (upper respiratory infection): Code(s): J06.9 - Acute upper respiratory infection, unspecified Qualifiers: URI type: unspecified URI Qualified Code(s): J06.9 - Acute upper respiratory infection, unspecified Plan: Sent flu COVID and RSV. Vital signs are stable and physical exam was unremarkable, lungs are clear however I will get a chest x-ray and give her a small dose of prednisone burst and a Z-Wally for the anti-inflammatory effects. Plan See above Orders: Orders SARS-CoV2/FLU/RSV Today J06.9 - Acute upper respiratory infection, unspecified XR chest 2V Today R05.9 - Cough, unspecified Medications: New azithromycin For 250 mg dose pack: take 500 mg today (day 1), then 250 mg for 4 days (days 2-5) PO 6 tabs 0RF prednisone 10 mg PO DAILY 5 tabs 0RF Coding Level of Care Code New Pt Level 4 (56507) Diagnoses Upper respiratory tract infection, unspecified type J06.9 URI type: unspecified URI
== END 2024-04-26 08:47 | disposition home or self-care (01) ==
PROVIDERS: PCP Internal Medicine; Visit Provider Physician Assistant
DX: J06.9 Acute upper respiratory infection, unspecified (principal)
CPT/HCPCS: 99204

== ENCOUNTER 2024-04-26 08:25 | Outpatient (REF) | payer OTHER, SELFPAY ==
[2024-04-26 12:29] LABS: Influenza A PCR NEGATIVE (Negative); Influenza B PCR NEGATIVE (Negative); Resp Syncy Virus RNA Qual PCR NEGATIVE (Negative); SARS COV2 PCR INHOUSE NEGATIVE (Negative)
== END 2024-04-26 08:26 | disposition home or self-care (01) ==
LOC: HO.LAB 08:25
PROVIDERS: Visit Provider Physician Assistant
DX: J06.9 Acute upper respiratory infection, unspecified (principal)
CPT/HCPCS: 0241U

== ENCOUNTER 2024-04-26 08:39 | Outpatient (REF) | payer OTHER, SELFPAY ==
--- NOTE | ~2024-04-26 | XR_ITS ---
EXAMINATION: XR CHEST CLINICAL INFORMATION: Cough COMPARISON: Chest radiograph 11/13/2023 TECHNIQUE: 2 views of the chest were obtained. FINDINGS: The lungs are mildly hypoexpanded. No focal consolidation. No pleural effusions, edema or pneumothorax. The cardiovascular silhouette is within normal limits. No acute osseous abnormality. XR/XR chest 2V IMPRESSION: No acute pulmonary disease. Electronically signed by: Froylan Urrutia MD 04/26/2024 09:38 AM EDT
== END 2024-04-26 08:40 | disposition home or self-care (01) ==
LOC: HO.HMGCX 08:39
PROVIDERS: PCP Internal Medicine; Visit Provider Physician Assistant
DX: R05.9 Cough, unspecified (principal)
CPT/HCPCS: 71046

== ENCOUNTER 2024-05-11 09:03 | Outpatient (REF) | payer OTHER, SELFPAY ==
[2024-05-11 09:21] LABS: MANUAL DIFF FLAG NO
[2024-05-11 10:09] LABS: Basophils Absolute Auto 0.1 X10*3/uL (0.0-0.2); Eosinophils Absolute Auto 0.1 X10*3/uL (0.0-0.4); Eosinophils Percent Auto 2.8 % (0-4); Hematocrit 36.8 % (37.0-47.0); Hemoglobin 11.9 g/dl (12.0-16.0); Imm Gran Abs Auto 0.01 X10*3/uL (0.00-0.03); Imm Gran Pct Auto 0.2 % (0.0-0.4); Lymphocytes Absolute Auto 1.7 X10*3/uL (1.2-4.9); Lymphocytes Percent Auto 33.7 % (20-40); Mean Corpuscular HGB Conc 32.3 g/dl (31.0-35.0); Mean Corpuscular Hemoglobin 25.1 pg (27.0-33.0); Mean Corpuscular Volume 77.5 fL (80.0-98.0); Mean Platelet Volume 10.4 fL (9.4-12.3); Monocytes Absolute Auto 0.3 X10*3/uL (0.1-1.2); Neutrophils Absolute Auto 2.8 x10*3/uL (2.0-8.3); Neutrophils Percent Auto 56.3 % (45-73); Platelet Count 321 X10*3/uL (160-400); Red Blood Count 4.75 X10*6/uL (4.20-5.50); Red Cell Distribution Width 15.1 % (11.0-16.0)
[2024-05-11 10:55] LABS: Alanine Aminotransferase 18 U/L (0-31); Alkaline Phosphatase 68 U/L (39-117); Anion Gap 11 (12-20); Aspartate Amino Transferase 17 U/L (5-31); Bilirubin Total 0.4 mg/dL (0.0-1.0); Blood Urea Nitrogen 13 mg/dL (9-16); Calcium 8.9 mg/dL (8.4-10.2); Carbon Dioxide 25 mmol/L (22-29); Chloride 108 mmol/L (96-108); Estimated Glomerular Filt Rate > 60; Glucose Random 91 mg/dL (60-115); Potassium 3.9 mmol/L (3.3-5.1); Sodium 140 mmol/L (135-145); Total Protein 7.6 g/dL (6.5-8.0)
[2024-05-11 11:12] LABS: TSH reflex Free T4 0.56 uIU/mL (0.32-4.0)
== END 2024-05-11 09:04 | disposition home or self-care (01) ==
LOC: HO.LAB 09:03
PROVIDERS: PCP Internal Medicine; Visit Provider Internal Medicine
DX: E05.90 Thyrotoxicosis, unspecified without thyrotoxic crisis or storm (principal); G47.33 Obstructive sleep apnea (adult) (pediatric); J45.901 Unspecified asthma with (acute) exacerbation; L20.89 Other atopic dermatitis; Z68.41 Body mass index [BMI] 40.0-44.9, adult
CPT/HCPCS: 36415; 80053; 84443; 85025

== ENCOUNTER 2024-06-27 10:10 | Outpatient (AMB) | payer OTHER, SELFPAY ==
[2024-06-27 10:37] VITALS: BP 110/68; BMI 44.4
--- NOTE | 2024-06-27 10:37 | A.OFFVIS_ITS ---
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 RS 3X Game Producer Services: Game Producer Present Information Interpreted: clinical only Printer Operator: Printer Operator Present Allergies Iodinated Contrast Media [IV CONTRAST] Allergy (Intermediate, Verified 06/27/24 10:40) SHORTNESS OF BREATH seafood Allergy (Verified 06/27/24 10:40) Shortness of Breath Medication List - Last Reconciled 06/27/24 by Manasa Griffin CNM albuterol sulfate 90 mcg/actuation 2 puffs inhalation Q4-6H PRN albuterol sulfate 2.5 mg (3 mL) inhalation Q4-6H PRN budesonide-formoterol 160-4.5 mcg/actuation (Symbicort) 1 inh inhalation BID cetirizine 10 mg PO DAILY ibuprofen 600 mg PO Q8H PRN montelukast 10 mg PO DAILY naproxen 1 tab PO DAILY omeprazole 20 mg PO DAILY Is last menstrual period known: Yes Last menstrual period: 06/03/24 Do you need a note to return to daycare/school/sports/work: No HPI HPI 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 she says she will had normal Pap smears the years she was getting them with Dr. Banda, and last year's Pap smear was negative with negative HPV. She is been noticing periods either and she occasionally has skipped a period perhaps twice in the last year. She also had hot flashes a couple of times She works at the [employer].. 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 She has noticed that over the years she has gained a lot of weight. On questioning she admits that they do bring food into the break room and share snacks and she has been stress eating and likes bread and sweets. It is hard to get exercise her bought her a treadmill and it is in the living room. She thinks she might have gained about 5 lb in the last year. Review of the chart shows 35 lb weight gain since 2020. She is not happy with the way she looks and majority of the visit was spent reviewing how to improve things and review of her periods and the other changes that are happening while it is not obvious on questioning the patient admits that she is noticing increased facial hair and she is having some thinning of the hair on the top of her head though her 'part' is on the side so it is not visible. [facility] Medical History Asthma Surgical History History of bilateral tubal ligation Family History Maternal Grandmother Breast cancer Brain cancer Bone cancer Stomach cancer Social History Patient Tobacco Use Status: Never used Tobacco Female Reproductive History Menstrual Age of Menarche: 10 Duration of menses: 3-5 days Date of last menstrual period: 06/03/24 control method: permanent sterilization Total pregnancies: 3 Full term: 3 Date of last pap smear: 04/05/23 (negative,2012 WNL) History of abnormal pap smear: No Physical Exam Vital Signs: Last Vital Signs BP 110/68 06/27/24 10:37 BMI result Body Mass Index 44.4 Const General: healthy appearing, comfortable, no acute distress, well developed and alert Nutritional Appearance: average body habitus Orientation/consciousness: patient oriented x3 Limitations: no limitations HEENT Head: Yes normocephalic Neck Neck: Yes normal visual inspection Chest Chest palpation & inspection: normal inspection of the chest Breast/axilla inspection: normal inspection of the breasts and normal inspection of the axillae Breast/axilla palpation: normal palpation of the breasts and normal palpation of the axillae Resp Effort & Inspection: normal respiratory effort GI Inspection: Yes normal to inspection, No Abdominal wall edema and No distended Palpation (GI): Soft to palpation and nontender Other: External exam within limits vagina pink and moist cervix multiparous pink smooth pull nontender uterus small anteverted mobile nontender good tone with Kegel adnexa nonenlarged. General: Yes bladder normal to palpation External Female Exam: normal external appearance and normal appearance of the urethra Speculum Exam - Vagina: normal appearance of the vagina, normal palpation and normal vaginal discharge Speculum Exam - Cervix: normal appearance of the cervix, normal palpation and nontender Bimanual exam- vagina & uterus: normal bimanual exam, normal palpation, uterine size normal, bladder normal to palpation, consistency normal, normal palpation, uterine mobility normal, uterine shape normal, No Cervical tenderness present, non-tender and no cervical motion tenderness Bimanual Exam- Adnexa, other: normal adnexae, no masses, normal and No adnexal tenderness Neuro General: patient oriented x3 Results Reviewed Results Reviewed: Name: Abebe Thompson Age/Sex: 32/F Attending: Manasa Griffin CNM : 1990 Submitted by: Manasa Griffin CNM Copies to: Sheela Powell MD MR #: [id number] Status: DEP REF Collected: 04/05/23 Location: [facility] Received: 04/07/23 Interpretation Satisfactory for evaluation. Mild inflammation. Negative for intraepithelial lesion or malignancy. HPV mRNA E6/E7: NOT DETECTED This assay detects E6/E7 viral messenger RNA (mRNA) from 14 high-risk HPV types (16, 18, 31, 33, 35, 39, 45, 51, 52, 56, 58, 59, 66, 68) HPV testing performed by [facility], [place], [place]. See reference laboratory pion of the EMR for entire report. Clinical Information LMP:03/28/23 Previous PAP test:09/20/11, WNL Material Received ThinPrep-Cervical Copies To Sheela Powell MD [address] [address] Manasa Griffin CNM [address] [place], [place] [address]Kinza Cedillo [address] [place] [id number] Electronically Signed By: FLORINA Nickerson (ASCP) 04/25/23 0940 The Pap Test is a screening procedure with the inherent possibility of both false negative and false positive results. Results should be interpreted in the context of historic and current clinical findings. Reliability of the Pap Test is enhanced by performing the test on a regular repetitive basis. Patient: Abebe Thompson Age/Sex: 32/F MR#: [id number] Page 1 of 1; 12/20/2010 ASCUS with positive HPV, Paps before that negative, 1 Pap after that in 2011 negative. Assessment & Plan Assessment & Plan (1) Irregular menstruation, unspecified: Comment: See new discussed relationship between weight gain (35 lb in 3 years per chart), and changes to hormonal environment... Code(s): N92.6 - Irregular menstruation, unspecified Category: Medical (2) Hx of abnormal cervical Pap smear: Comment: ASCUS with positive HPV 2010; negative Pap 2011; no record of Paps till 04/05/23.(however patient had negative Paps with her primary care provider in time); 04/05/23 Pap is negative with negative HPV. Code(s): Z87.42 - Personal history of other diseases of the female genital tract Category: Medical (3) Breast cancer screening: Code(s): Z12.39 - Encounter for other screening for malignant neoplasm of breast Category: Medical (4) Screen for sexually transmitted diseases: Code(s): Z11.3 - Encounter for screening for infections with a predominantly sexual mode of transmission Category: Medical (5) Obesity: Code(s): E66.9 - Obesity, unspecified Category: Medical (6) Perimenopausal symptoms: Comment: occ hot flashes Code(s): N95.1 - Menopausal and female climacteric states Category: Medical Plan She is here for Quantitative Consultant annual . she says she will had normal Pap smears the years she was getting them with Dr. Banda, and last year's Pap smear was negative with negative HPV. She is been noticing periods either and she occasionally has skipped a period perhaps twice in the last year. She also had hot flashes a couple of times She works at the [employer].. 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 She has noticed that over the years she has gained a lot of weight. On questioning she admits that they do bring food into the break room and share snacks and she has been stress eating and likes bread and sweets. It is hard to get exercise her bought her a treadmill and it is in the living room. She thinks she might have gained about 5 lb in the last year. Review of the chart shows 35 lb weight gain since 2020. She is not happy with the way she looks and majority of the visit was spent reviewing how to improve things and review of her periods and the other changes that are happening while it is not obvious on questioning the patient admits that she is noticing increased facial hair and she is having some thinning of the hair on the top of her head though her 'part' is on the side so it is not visible. Reviewed the the challenges of weight gain and its influence on effect in all of the hormones in her body including insulin and testosterone and all of the hormones which then create feedback systems leading to increased hunger but also periods of amenorrhea when she does not ovulate on a regular basis. reviewed that if this continued it would lead to a buildup of the lining of the uterus, and would need to be evaluated with ultrasound and endometrial biopsy. The most important intervention of all, would be to work on losing weight. discussed the weight management program which she considered but it was difficult to get time off from work to go to the appointments. Discussed strategies for adding in exercise and walking into her day and also eating healthier she is considering bringing lunch from home and walking at lunch time. She recently had full lab work with her primary care provider reviewed the possibility of checking different hormone levels but she is going to work on trying to lose the weight 1st reviewed that if she ever skipped 3 periods in a row that would need to be evaluated and discussed the testing involved. Orders: Orders Bacterial Vaginosis Panel Today N89.8 - Other specified noninflammatory disorders of vagina CT NG by PCR Today N89.8 - Other specified noninflammatory disorders of vagina Coding Level of Care Code Est Pt Prev Care 18-39y(13082) Diagnoses Irregular menstruation, unspecified N92.6 Hx of abnormal cervical Pap smear Z87.42 Breast cancer screening Z12.39 Screen for sexually transmitted diseases Z11.3 Obesity E66.9 Perimenopausal symptoms N95.1
== END 2024-06-27 12:04 | disposition home or self-care (01) ==
LOC: HO.HWSM 10:11
PROVIDERS: PCP Internal Medicine; Visit Provider Advanced Practice Midwife
DX: Z01.419 Encounter for gynecological examination (general) (routine) without abnormal findings (principal); N92.6 Irregular menstruation, unspecified; N95.1 Menopausal and female climacteric states; Z87.42 Personal history of other diseases of the female genital tract; E66.9 Obesity, unspecified
CPT/HCPCS: 99395

== ENCOUNTER 2024-06-27 10:10 | Outpatient (REF) | payer OTHER, SELFPAY ==
[2024-06-28 05:14] LABS: CT PCR NOT DETECTED (Not Detect.); NG PCR NOT DETECTED (Not Detect.)
[2024-06-28 11:32] LABS: Bacterial Vaginosis PCR NEGATIVE (Negative); Candida Group PCR NOT DETECTED (Not Detect); Candida glab krusei PCR NOT DETECTED (Not Detect); Trichomonas vaginalis PCR NOT DETECTED (Not Detect)
== END 2024-06-27 10:11 | disposition home or self-care (01) ==
LOC: HO.LAB 10:10
PROVIDERS: PCP Internal Medicine; Visit Provider Advanced Practice Midwife
DX: N89.8 Other specified noninflammatory disorders of vagina (principal)
CPT/HCPCS: 0352U; 87491; 87591

== ENCOUNTER → 2024-07-08 14:56 | Outpatient (BNVA) | payer OTHER, SELFPAY | PROVIDERS: PCP Internal Medicine; Visit Provider Physician Assistant Medical | DX: Z13.89 Encounter for screening for other disorder (principal) | CPT/HCPCS: 87651 ==

== ENCOUNTER 2024-09-10 14:55 | Outpatient (AMB) | payer OTHER, SELFPAY ==
[2024-09-10 15:08] VITALS: BP 122/80; PULSE 83; O2SAT 99; BMI 46.2
--- NOTE | 2024-09-10 15:08 | MHC.OFFVIS ---
Vital Signs 09/10/24 15:08 Height 5 ft 1 in Weight 244 lb 11.41 oz BMI 46.2 BP 122/80 Blood Pressure Location Rt brachial Position Sitting Pulse 83 Pulse Source Pulse Oximeter Pulse Oximetry (%) 99 Oxygen Delivery Method Room Air Intake Visit Reasons: Asthma Allergies Iodinated Contrast Media [IV CONTRAST] Allergy (Intermediate, Verified 09/10/24 15:12) SHORTNESS OF BREATH seafood Allergy (Verified 09/10/24 15:12) Shortness of Breath HPI Comments Details: The patient is here for a pulmonary evaluation. The patient is a 34-year-old woman who has a history of asthma. Apparently she was in her usual state health until several years back when she had COVID. After she had COVID her asthma seemed to have blossomed to a worsening type of condition. She started him to use her maintenance inhaler more regularly. And then ultimately started using her rescue inhaler on a regular basis. Her symptoms gotten so significant that she is actually needing her rescue inhaler 2 to 3 times a day in conjunction went her maintenance. She has a hard time exercising because of the shortness of breath. She also had significant daytime drowsiness. She has an Wetmore score that is elevated 07/14. She did have a sleep study several years ago demonstrating sleep apnea. Although I do not have the report right now I will requested from sleep Medicine Services. Based on the fact the patient continues to be symptomatic will go ahead and request a home sleep study at this time. The patient may benefit from CPAP. And this will provide with better energy during the daytime for her to exercise and hopefully lose some weight. The patient however also has significant asthma and acid right now is uncontrolled with significant wheezing on exam is will try to maximize her respiratory therapy. Will also request blood work in allergy testing to see if she is a candidate for biologics. Will follow-up in a couple months with PFTs. If she has any issues prior to that she will call for an earlier assessment. [facility] Medical History (Updated 09/10/24 @ 22:11 by Efrain Thompson MD) BONNIE (obstructive sleep apnea) Allergies Asthma Surgical History History of bilateral tubal ligation Family History Maternal Grandmother Breast cancer Brain cancer Bone cancer Stomach cancer Social History Patient Tobacco Use Status: Never used Tobacco Female Reproductive History Menstrual Age of Menarche: 10 Review of Systems Const Reports daytime sleepiness and Reports snoring ENT Reports nasal congestion and Reports nasal discharge Card Denies chest pain, Reports dyspnea and Reports dyspnea on exertion Resp Reports cough, Reports dyspnea, Reports dyspnea on exertion, Reports snoring and Reports wheezing GI Reports no additional complaints Musc Reports no additional complaints Skin/Breast Reports rash Endo Reports no additional complaints Lake/Lymph Reports no additional complaints Aller/Immun Reports wheezing Physical Exam Vital Signs: Last Vital Signs Pulse 83 09/10/24 15:08 BP 122/80 09/10/24 15:08 Pulse Ox 99 09/10/24 15:08 Oxygen Delivery Method Room Air 09/10/24 15:08 BMI result Body Mass Index 46.2 Const General: comfortable HEENT Head: Yes normocephalic Neck Neck: Yes supple Chest Chest palpation & inspection: normal inspection of the chest Resp Effort & Inspection: normal respiratory effort and prolonged expiratory phase Auscultation: wheezes and diminished lung sounds Cardio Heart sounds: S1 normal heart sound present and S2 normal heart sound present GI Palpation (GI): Soft to palpation Skin General skin exam: no rashes or lesions noted Extrem General: No clubbing and No cyanosis Assessment & Plan Assessment & Plan (1) Asthma: Code(s): J45.909 - Unspecified asthma, uncomplicated Category: Medical Qualifiers: Asthma severity: severe Asthma persistence: persistent Asthma complication type: uncomplicated Qualified Code(s): J45.50 - Severe persistent asthma, uncomplicated (2) Allergies: Code(s): T78.40XA - Allergy, unspecified, initial encounter Category: Medical Qualifiers: Encounter type: initial encounter Qualified Code(s): T78.40XA - Allergy, unspecified, initial encounter (3) BONNIE (obstructive sleep apnea): Code(s): G47.33 - Obstructive sleep apnea (adult) (pediatric) Category: Medical Plan Stop Symbicort start Trelegy 200 CHAPITO as needed and prior to exercise. Provided a spacer Bloodwork and allergy testing. Likely a good candidate for biologic therapy home PSG PFTs continue singulair continue zyrtec F/U 6-8 weeks Orders: Orders Basic Metabolic Panel Today J45.909 - Unspecified asthma, uncomplicated, T78.40XA - Allergy, unspecified, initial encounter Immunoglobulins,IgG IgA IgM Today J45.909 - Unspecified asthma, uncomplicated, T78.40XA - Allergy, unspecified, initial encounter Immunoglobulin E Today J45.909 - Unspecified asthma, uncomplicated, T78.40XA - Allergy, unspecified, initial encounter Resp Allergy Profile Region I Today J45.909 - Unspecified asthma, uncomplicated, R91.1 - Solitary pulmonary nodule, T78.40XA - Allergy, unspecified, initial encounter Complete Blood Count Auto Diff Today J45.909 - Unspecified asthma, uncomplicated, T78.40XA - Allergy, unspecified, initial encounter Erythrocyte Sedimentation Rate Today J45.909 - Unspecified asthma, uncomplicated, T78.40XA - Allergy, unspecified, initial encounter Hypersensitive Pneumonitis Prf Today J45.909 - Unspecified asthma, uncomplicated, R91.8 - Other nonspecific abnormal finding of lung field, T78.40XA - Allergy, unspecified, initial encounter RT home sleep study Today G47.33 - Obstructive sleep apnea (adult) (pediatric), J45.909 - Unspecified asthma, uncomplicated PFT pulmonary function test Today G47.33 - Obstructive sleep apnea (adult) (pediatric), J45.909 - Unspecified asthma, uncomplicated Medications: New ddyfirhuyxi-wuhfyywhp-kkqwbysr 200-62.5-25 mcg (Trelegy Ellipta) 1 inh inhalation DAILY 60 ea 12RF 30 days rxruhgwxzgf-azvgrgbvr-ntwbbmvy 200-62.5-25 mcg (Trelegy Ellipta) 1 inh inhalation DAILY 30 days 60 ea 12RF Coding Level of Care Code New Pt Level 4 (30335) Diagnoses Severe persistent asthma without complication J45.50 Asthma severity: severe Asthma persistence: persistent Asthma complication type: uncomplicated Allergy, initial encounter T78.40XA Encounter type: initial encounter BONNIE (obstructive sleep apnea) G47.33 Time Spent (min) 40
--- OUTSIDE RECORDS SUMMARY | 2024-09-10 16:55 | XMS_ITS | Encounter Summary ---
Author Organization [facility] Address [address] [place] [address] Phone Care Team Providers Care Special Warfare Combatant Crewman Name Role Phone Tangela Puente MD Primary Care Provider Unava ilable Encounter Details Date Type Department Care Team (Late st Contact Info) Description 04/06/2017 Conversion Encounter [facility] - [address] [address] Social History Tobacco Use Types Packs/Day Years Used Date Smoking Tobacco: Never Assessed Comments Unknown Sex and Gender Information Value Date Recorded Sex Assigned at Not on file Legal Sex Female 4:16 PM EDT Gender Identity Not on file Sexual Orientation Not on file documented as of this encounter Plan of Treatment Not on file documented as of this encounter Visit Diagnoses Not on filedocumented in this encounter Care Teams Special Warfare Combatant Crewman Relationship Specialty Start Date End Date Tangela Puente MD PCP - General 03/31/17 documented as of this encounter
--- OUTSIDE RECORDS SUMMARY | 2024-09-10 16:56 | XMS_ITS | Patient Health Record ---
Author Organization [facility] Address [address] [place] [address] Care Team Providers Care Public Health Engineer Name Role Phone Sheela Powell Primary Care Provider UnavailDipehs Mccormick Unavailable [phone] ALLERGIES Allergen (clinical drug ingredient) Drug/Non Drug Allergy documented on EMR Reaction Allergy Type Onset Date Status mri dye (uncoded) Unknown Allergy Ac tive REASON FOR REFERRAL No Information MEDICATIONS Medication SIG (Take, Route, Frequency, Duration) Notes Start Date End Date Status ProAir HFA 108 (90 Base) MCG/ACT 1 puff as needed Inhalation every 4 hrs Active Tylenol Not-Taking Cetirizine HCl 10 MG 1 tablet Orally Onc e a day for 30 day(s) Active Symbicort 160-4.5 MCG/ACT 2 puffs Inhala tion Twice a day Active Montelukast Sodium 10 MG 1 tablet Orally Once a day for 30 day(s) Active Ketotifen Fumarate 0.025 % 1 drop into affected eye Ophthalmic Twice a day Active Omeprazole 20 MG TAKE 1 CAPSULE BY [facility] EVERY MORNING Orally Once a day for 90 days Active IMMUNIZATIONS Vaccine Route Administration Date Status Comme nts Influenza Unknown 07/13/2021 Administered Influenza Unknown 05/21/2022 Administered SOCIAL HISTORY Tobacco Use: Social History Observation Description Date Details (start date - stop date) Never Smoker NA - NA Sex Assigned At : Social History Observation Description Sex Assigned At Unknown Tobacco Use/Smoking Question Answer Notes Patient is a nonsmoker Alcohol Screen Question Answer Notes Did you have a drink containing alcohol in the p ast year? No Points 0 Interpretation Negative PROBLEMS Problem Type ICD Code Onset Dates Problem Status W/U Status Risk SNOMED Code Notes Problem GERD (gastroesophageal reflux disease) (K21.9) Active confirmed Gastroesophagea l reflux disease (526877148) Problem Epigastric abdominal pain (R10.13) Active confirmed Epigastric pain (86339605) Problem Gastritis (K29.70) Active confirmed Gas tritis (3083036) Problem Gastroesophageal reflux (K21.9) Active confirmed Esophageal re flux finding (253371042) Encounters Encounter Location Date Provider Diagnosis [facility] [address] [place] [address] 05/30/2024 Dipesh Pendleton PLAN OF TREATMENT Future Test Test Name Order Date UPPER GI ENDOSCOPY 05/04/2022 Insurance Providers Payer Name Payer Address Payer Phone Subscriber Number Group Number Insured Name Patient Relationship to Insured Coverage Start Date Coverage End Date [employer] [place] [address] [address] [place] [address] [id number] ASHLIE ROJAS Self - patient is the insured MEDICAL (GENERAL) HISTORY Medical History History ICD Code Asthma Denies [place],DM,CVA,renal disease GERD--EGD 04/2022 revealed a small hiatal hernia, mild changes of reflux and gastritis. Biopsies were negative for H. pylori, Avalos's esophagus, and celiac disease Neg. abdominal U/S in 2020 Surgical History Surgery Date(Month/Year) Tubal ligation 2012 11 wisdom teeth 2021
--- OUTSIDE RECORDS SUMMARY | 2024-09-10 16:56 | XMS_ITS ---
Author Organization [facility] Address [address] [place] [address] [place] [address] Care Team Providers Care Bookmaker'S Clerk Name Role Phone Olgabelgica Sheela Primary Care Provider Unavailab Dipesh Black Unavailable [phone] REASON FOR VISIT OMEPRAZOLE MEDICATIONS Medication SIG (Take, Route, Fr equency, Duration) Notes Start Date End Date Status Omeprazole 20 MG TAKE 1 CAPSULE BY [facility] EVERY MORNING Orally Once a day for 90 days Active Encounters Encounter Location Date Provider Diagnosis [facility] [address] [place] [phone] 05/30/2024 Dipesh Pendleton PLAN OF TREATMENT Medication Medication Name Sig Start Date Stop Date Notes Omeprazole 20 MG TAKE 1 CAPSULE BY [facility] EVERY MORNING Orally Once a day for 90 days
== END 2024-09-10 15:51 | disposition home or self-care (01) ==
PROVIDERS: PCP Internal Medicine; Referring Provider Physician Assistant Medical; Visit Provider Hospitalist
DX: J45.50 Severe persistent asthma, uncomplicated (principal); T78.40XA Allergy, unspecified, initial encounter; G47.33 Obstructive sleep apnea (adult) (pediatric)
CPT/HCPCS: 99204

== ENCOUNTER 2024-09-10 14:55 | Outpatient (REF) | payer OTHER, SELFPAY ==
[2024-09-10 16:10] LABS: MANUAL DIFF FLAG NO
[2024-09-10 16:44] LABS: Basophils Absolute Auto 0.1 X10*3/uL (0.0-0.2); Eosinophils Absolute Auto 0.2 X10*3/uL (0.0-0.4); Eosinophils Percent Auto 2.4 % (0-4); Hemoglobin 10.5 g/dl (12.0-16.0); Imm Gran Abs Auto 0.01 X10*3/uL (0.00-0.03); Imm Gran Pct Auto 0.2 % (0.0-0.4); Lymphocytes Absolute Auto 2.1 X10*3/uL (1.2-4.9); Lymphocytes Percent Auto 33.8 % (20-40); Mean Corpuscular HGB Conc 31.8 g/dl (31.0-35.0); Mean Corpuscular Hemoglobin 24.1 pg (27.0-33.0); Mean Corpuscular Volume 75.7 fL (80.0-98.0); Mean Platelet Volume 10.2 fL (9.4-12.3); Monocytes Absolute Auto 0.4 X10*3/uL (0.1-1.2); Neutrophils Absolute Auto 3.5 x10*3/uL (2.0-8.3); Neutrophils Percent Auto 56.6 % (45-73); Platelet Count 318 X10*3/uL (160-400); Red Blood Count 4.36 X10*6/uL (4.20-5.50); Red Cell Distribution Width 15.9 % (11.0-16.0); White Blood Count 6.2 X10*3/uL (4.8-10.8)
[2024-09-10 17:14] LABS: Anion Gap 9 (12-20); Blood Urea Nitrogen 15 mg/dL (9-16); Calcium 8.7 mg/dL (8.4-10.2); Carbon Dioxide 25 mmol/L (22-29); Chloride 109 mmol/L (96-108); Estimated Glomerular Filt Rate > 60; Glucose Random 77 mg/dL (60-115); Potassium 3.8 mmol/L (3.3-5.1); Sodium 139 mmol/L (135-145)
--- OUTSIDE RECORDS SUMMARY | 2024-09-10 17:39 | XMS_ITS | Encounter Summary ---
Author Organization [facility] Address [address] [place] [phone] Phone Care Team Providers Care Press Leader Name Role Phone Tangela Puente MD Primary Care Provider Unava ilable Encounter Details Date Type Department Care Team (Late st Contact Info) Description 04/06/2017 Conversion Encounter [facility] - [address] [address] Social History Tobacco Use Types Packs/Day Years [...] on filedocumented in this encounter Care Teams Press Leader Relationship Specialty Start Date End Date Tangela Puente MD PCP - General 03/31/17 documented as of this encounter
--- OUTSIDE RECORDS SUMMARY | 2024-09-10 17:39 | XMS_ITS | Clinical Summary ---
Author Organization [facility] Address [address] [place] [address] Phone Care Team Providers Care Inside Sales Territory Manager Name Role Phone Tangela Puente MD Primary Care Provider Unava ilable Immunizations Name Administration Dates Next Due DTP 02/16/1994, 0,02/18/1989,12/08,1988 Hep B, ped/adol 03/01/2001,07/12/2000,03/01/2000 Hib (PRP-T) 03/01/1990 MMR 03/01/2000,11/16/1989 Meningococcal Conj (Menactra) MCV4P 08/09/2006 OPV 02/16/1994, 0,02/18/1989,12/08,1988 Td (adult) (MBL), 2 Lf tetan us toxoid, PF, adsorbed 03/01/2001 Varicella 03/11/1999 Family History Relation Name Status Comments Brother Alive Brother: Asthma Father Alive Father: Alive a nd well Maternal Grandmother Alive Materna l grandmother: Cancer, breast Mother Alive Mother: Alive a nd well Sister 1 Alive Sister: Alive a nd well, Alive and well Sister 2 Alive Sister: Alive a nd well, Alive and well Social History Tobacco Use Types Packs/Day Years Used Date Smoking Tobacco: Never Assessed Comments Unknown Sex and Gender Information Value Date Recorded Sex Assigned at Not on file Legal Sex Female 4:16 PM EDT Gender Identity Not on file Sexual Orientation Not on file Plan of Treatment Health Maintenance Due Date Last Done Comments Varicella Vaccines (2 of 2 - 2-dose childhood series) 03/29/2000 03/11/1999 DTaP,Tdap,and Td Vaccines (6 - Tdap) 03/02/2001 03/01/2001, 02/16/1994, 11/16/1989, Additional history exists Consider Men B Vaccine (1 of 2 - Bexsero 2-dose series) 2004 Influenza Vaccines (#1) 2024 COVID-19 Vaccine ( season) 2024 HIB Vaccines Completed 03/01/1990 IPV Vaccines Completed 02/16/1994, 10/20, 02/18/1989, Additional history exists MMR Vaccines Completed 03/01/2000, 11/16/1989 Hepatitis B Vaccines Completed 03/01/2001, 07/12/2000, 03/01/2000 Meningococcal Vaccine Completed 08/09/2006 HPV Vaccines Aged Out No longer eligi ble based on patient's age to complete this topic Hepatitis A Vaccines Aged Out No long er eligible based on patient's age to complete this topic Men B Vaccine Aged Out No longer elig ible based on patient's age to complete this topic Pneumococcal Vaccine Aged Out No long er eligible based on patient's age to complete this topic Care Teams Inside Sales Territory Manager Relationship Specialty Start Date End Date Tangela Puente MD PCP - General 03/31/17
[2024-09-10 17:41] LABS: Erythrocyte Sedimentation Rate 23 MM/HR (0-20)
[2024-09-11 10:39] LABS: IgA 211 mg/dL (47-310); IgG 1500 mg/dL (600-1640); IgM 176 mg/dL (50-300)
[2024-09-17 10:32] LABS: Asperg fumigatus Precip Abs NEGATIVE; Micropoly faeni Abs NEGATIVE; Pigeon serum Abs NEGATIVE; Saccharo pora viridis Abs NEGATIVE; Thermo candidus Abs NEGATIVE; Thermoa vulgaris #1 NEGATIVE
[2024-09-17 10:33] LABS: Class Cockroach 0/1; Class Dermatophagoides farinae 0; Class Mouse Urine Protein 3; D002 - IgE D farinae <0.10; E072-IgE Mouse Urine 6.35 (H); I006-IgE Cockroach, German 0.28 (H); Immunoglobulin E 182 (H)
[2024-09-17 10:34] LABS: Class Alternaria alternata 0; Class Aspergillus fumigatus 0; Class Cat Dander 2; Class Cladosporium herbarum 0; Class Dog Dander 3; Class Mountain Cedar 0; Class Timothy Grass 0/1; E001 - IgE Cat Dander 2.46 (H); E005 - IgE Dog Dander 12.90 (H); G006 - IgE Timothy Grass 0.20 (H); M002 - IgE Cladosporium herbar <0.10; M003 - IgE Aspergillus fumigat <0.10; M006 - IgE Alternaria alternat <0.10; T006 - IgE Cedar, Mountain <0.10
[2024-09-17 10:35] LABS: Class Cottonwood 0; Class Oak 1; Class Sycamore 0; Class Walnut Tree 0/1; Class White Ash 0; Class White Mulberry 0; T007 - IgE Oak, White 0.64 (H); T010 - IgE Walnut 0.12 (H); T011 - IgE Maple Leaf Sycamore <0.10; T014 - IgE Cottonwood <0.10; T015 - IgE Ash, White <0.10; T070 - IgE White Mulberry <0.10
[2024-09-17 10:36] LABS: Class Bermuda Grass 0; Class Birch 3; Class Common Ragweed 2; Class Derm. pterony 0; Class Mugwort 0; Class Penicillium crysogenum 0; D001 IgE D pteronyssinus <0.10; G002 IgE Bermuda Grass <0.10; M001 IgE Penicillium chrysogen <0.10; T003 IgE Common Silver Birch 7.79 (H); W001 - IgE Ragweed, Short 2.07 (H); W006 - IgE Mugwort <0.10
[2024-09-17 10:37] LABS: Class Elm 0; Class Maple Box Elder 0; Class Rough Pigweed 0; Class Sheep Sorrel 0; T001 IgE Maple/Box Elder <0.10; T008 IgE Elm, American <0.10; W014 IgE Pigweed, Common <0.10; W018 IgE Sheep Sorrel <0.10
== END 2024-09-10 14:56 | disposition home or self-care (01) ==
LOC: HO.LAB 14:55
PROVIDERS: PCP Internal Medicine; Referring Provider Physician Assistant Medical; Visit Provider Hospitalist
DX: J45.50 Severe persistent asthma, uncomplicated (principal); T78.40XA Allergy, unspecified, initial encounter; G47.33 Obstructive sleep apnea (adult) (pediatric); R91.1 Solitary pulmonary nodule; R91.8 Other nonspecific abnormal finding of lung field
CPT/HCPCS: 36415; 80048; 82784; 82785; 85025; 85652; 86003; 86331; 86606; 86609

== ENCOUNTER 2024-09-12 07:48 | Outpatient (REF) | payer OTHER, SELFPAY ==
--- OUTSIDE RECORDS SUMMARY | 2024-09-12 07:51 | XMS_ITS | Clinical Summary ---
Author Organization [facility] Address [address] [place] [address] Phone Care Team Providers Care Beater Out Name Role Phone Tangela Puente MD Primary [...] age to complete this topic Care Teams Beater Out Relationship Specialty Start Date End Date Tangela Puente MD PCP - General 03/31/17
--- OUTSIDE RECORDS SUMMARY | 2024-09-12 07:51 | XMS_ITS | Patient Health Record ---
Author Organization [facility] Address [address] [place] [address] Care Team Providers Care Supervisor Cereal Name Role Phone Sheela Powell Primary Care Provider UnavailDipesh Mccormick Unavailable [phone] ALLERGIES Allergen (clinical drug ingredient) Drug/Non Drug [...] Omeprazole 20 MG TAKE 1 CAPSULE BY [facility] EVERY MORNING Orally Once a day for [...] (K21.9) Active confirmed Gastroesophagea l reflux disease (323392947) Problem Epigastric abdominal pain (R10.13) Active confirmed Epigastric pain (21082050) Problem Gastritis (K29.70) Active confirmed Gas tritis (1327721) Problem Gastroesophageal reflux (K21.9) Active confirmed Esophageal re flux finding (491607102) Encounters Encounter Location Date Provider Diagnosis [facility] [address] [place] [address] 05/30/2024 Dipesh Pendleton PLAN OF TREATMENT Future Test Test Name Order Date UPPER GI ENDOSCOPY 05/04/2022 Insurance Providers Payer Name Payer Address Payer Phone Subscriber Number Group Number Insured Name Patient Relationship to Insured Coverage Start Date Coverage End Date [employer] [place] [address] [address] [place] [address] [id number] ASHLIE ROJAS Self - patient is the insured MEDICAL (GENERAL) HISTORY Medical History History ICD Code Asthma Denies [place],DM,CVA,renal disease GERD--EGD 04/2022 revealed a small hiatal hernia, mild changes of reflux and gastritis. Biopsies were negative for H. pylori, Avalos's esophagus, and celiac disease Neg. abdominal U/S in 2020 Surgical History Surgery Date(Month/Year) Tubal ligation 2012 11 wisdom teeth 2021
--- OUTSIDE RECORDS SUMMARY | 2024-09-12 07:51 | XMS_ITS | Encounter Summary ---
Author Organization [facility] Address [address] [place] [address] Phone Care Team Providers Care Aquarium Tank Attendant Name Role Phone Tangela Puente MD Primary Care Provider Unava ilable Encounter Details Date Type Department Care Team (Late st Contact Info) Description 04/06/2017 Conversion Encounter [facility] - [address] [address] Social History Tobacco Use Types Packs/Day Years [...] on filedocumented in this encounter Care Teams Aquarium Tank Attendant Relationship Specialty Start Date End Date Tangela Puente MD PCP - General 03/31/17 documented as of this encounter
[2024-09-12 09:22] LABS: Ferritin 8 ng/mL (10-122)
[2024-09-12 09:29] LABS: Vitamin B12 571 pg/mL (200-900)
[2024-09-13 11:58] LABS: Follicle Stimulating Hormone 5.7 mIU/mL
== END 2024-09-12 07:49 | disposition home or self-care (01) ==
LOC: HO.LAB 07:48
PROVIDERS: PCP Internal Medicine; Visit Provider Internal Medicine
DX: Z00.00 Encounter for general adult medical examination without abnormal findings (principal); D64.9 Anemia, unspecified; G47.33 Obstructive sleep apnea (adult) (pediatric); L71.9 Rosacea, unspecified; R23.2 Flushing
CPT/HCPCS: 36415; 82607; 82728; 83001

== ENCOUNTER 2024-10-16 12:35 | Outpatient (REF) | payer OTHER, SELFPAY ==
[2024-10-16 09:56] VITALS: PULSE 79; O2SAT 100
--- NOTE | 2024-10-16 13:01 | PFT_ITS ---
Flows: FEV1: 103 % of predicted at 2.89 L FVC: 104 % of predicted at 3.48 L FEV1/FVC: 83 % Bronchodilator response: Absent Volumes: Total lung capacity: 95 % of predicted at 4.44 L Residual volume: 85 % of predicted at 0.95 L Slow vital capacity: 97 % of predicted at 3.48 L Expiratory reserve volume: 37 % of predicted at 0.41 L Diffusion capacity: Normal Impression: No obstructive or restrictive ventilatory defect. No bronchodilator response. Decreased expiratory reserve volume suggests extrathoracic restriction likely secondary to abdominal obesity. MTDD
--- OUTSIDE RECORDS SUMMARY | 2024-10-16 15:19 | XMS_ITS | Encounter Summary ---
Author Organization [facility] Address [address] [place] [address] Phone Care Team Providers Care Fieldwork Coordinator Name Role Phone Tangela Puente MD Primary Care Provider Unava ilable Encounter Details Date Type Department Care Team (Late st Contact Info) Description 04/06/2017 Conversion Encounter [facility] - [address] [address] Social History Tobacco Use Types Packs/Day Years [...] on filedocumented in this encounter Care Teams Fieldwork Coordinator Relationship Specialty Start Date End Date Tangela Puente MD PCP - General 03/31/17 documented as of this encounter
--- OUTSIDE RECORDS SUMMARY | 2024-10-16 15:19 | XMS_ITS | Clinical Summary ---
Author Organization [facility] Address [address] [place] [address] Phone Care Team Providers Care Process Development Engineer Name Role Phone Tangela Puente MD Primary Care Provider Unava ilable Immunizations Immunization Administration Dates Next Due DTP 02/16/1994, 0,02/18/1989,12/08,1988 [...] 03/02/2001 03/01/2001, 02/16/1994, 11/16/1989, Additional history exists Influenza Vaccines (#1) 2024 COVID-19 Vaccine ( [...] age to complete this topic Care Teams Process Development Engineer Relationship Specialty Start Date End Date Tangela Puente MD PCP - General 03/31/17
--- OUTSIDE RECORDS SUMMARY | 2024-10-16 15:19 | XMS_ITS | Patient Health Record ---
Author Organization [facility] Address [address] [place] [address] Care Team Providers Care Sinker Winder Name Role Phone Sheela Powell Primary Care Provider UnavailDipesh Mccormick Unavailable [phone] ALLERGIES Allergen (clinical drug ingredient) Drug/Non Drug [...] Omeprazole 20 MG TAKE 1 CAPSULE BY [facility] EVERY MORNING Orally Once a day [...] W/U Status Risk SNOMED Code Notes Problem Epigastric abdominal pain (R10.13) Active confirmed Epigastric pain (69331000) Problem Gastritis (K29.70) Active confirmed Gas tritis (4608764) Problem GERD (gastroesophageal reflux disease) (K21.9) Active confirmed Gastroesophagea l reflux disease (365230838) Problem Gastroesophageal reflux (K21.9) Active confirmed Esophageal re flux finding (108684212) Encounters Encounter Location Date Provider Diagnosis [facility] [address] [place] [address] 05/30/2024 Dipesh Pendleotn PLAN OF TREATMENT Future Test Test Name Order Date UPPER GI ENDOSCOPY 05/04/2022 Insurance Providers Payer Name Payer Address Payer Phone Subscriber Number Group Number Insured Name Patient Relationship to Insured Coverage Start Date Coverage End Date [employer] [place] [address] [address] [place] [address] [id number] ASHLIE ROJAS Self - patient is the insured MEDICAL (GENERAL) HISTORY Medical History History ICD Code Asthma Denies [place],DM,CVA,renal disease GERD--EGD 04/2022 revealed a small hiatal hernia, mild changes of reflux and gastritis. Biopsies were negative for H. pylori, Avalos's esophagus, and celiac disease Neg. abdominal U/S in 2020 Surgical History Surgery Date(Month/Year) Tubal ligation 2012 11 wisdom teeth 2021
--- OUTSIDE RECORDS SUMMARY | 2024-10-16 15:19 | XMS_ITS ---
Author Organization [facility] Address [address] [place] [address] [place] [address] Care Team Providers Care Varnisher Name Role Phone Olgabelgica Sheela Primary Care Provider Unavailab Dipesh Black Unavailable [phone] REASON FOR VISIT OMEPRAZOLE MEDICATIONS Medication SIG (Take, Route, Fr equency, Duration) Notes Start Date End Date Status Omeprazole 20 MG TAKE 1 CAPSULE BY [facility] EVERY MORNING Orally Once a day for 90 days Active Encounters Encounter Location Date Provider Diagnosis [facility] [address] [place] [address] 05/30/2024 Dipesh Pendleton PLAN OF TREATMENT Medication Medication Name Sig Start Date Stop Date Notes Omeprazole 20 MG TAKE 1 CAPSULE BY [facility] EVERY MORNING Orally Once a day for 90 days
== END 2024-10-16 12:36 | disposition home or self-care (01) ==
LOC: HO.RESP 12:35
PROVIDERS: PCP Internal Medicine; Visit Provider Hospitalist
DX: G47.33 Obstructive sleep apnea (adult) (pediatric) (principal); J45.909 Unspecified asthma, uncomplicated
CPT/HCPCS: 94010; 94640; 94727; 94729

== ENCOUNTER → 2024-10-16 13:01 | Outpatient (BNV) | payer OTHER, SELFPAY | PROVIDERS: PCP Internal Medicine; Visit Provider Internal Medicine Pulmonary Disease | DX: J45.909 Unspecified asthma, uncomplicated (principal) | CPT/HCPCS: 94060; 94727; 94729 ==

== ENCOUNTER 2024-10-22 10:27 | Outpatient (AMB) | payer OTHER, SELFPAY ==
[2024-10-22 10:30] VITALS: BP 120/82; PULSE 83; O2SAT 100
--- NOTE | 2024-10-22 10:30 | MHC.OFFVIS ---
Vital Signs 10/22/24 10:30 Weight 245 lb 13.047 oz BP 120/82 Blood Pressure Location Rt brachial Position Sitting Pulse 83 Pulse Source Pulse Oximeter Pulse Oximetry (%) 100 Oxygen Delivery Method Room Air Intake Visit Reasons: Asthma Intake Note: here for PFT results, using albuterol inhaler more since changing her inhaler to Treley Allergies Iodinated Contrast Media [IV CONTRAST] Allergy (Intermediate, Verified 10/22/24 10:33) SHORTNESS OF BREATH seafood Allergy (Verified 10/22/24 10:33) Shortness of Breath Medication List - Last Reconciled 10/22/24 by Osiris Dawson LPN albuterol sulfate 90 mcg/actuation 2 puffs inhalation Q4-6H PRN albuterol sulfate 2.5 mg (3 mL) inhalation Q4-6H PRN budesonide-formoterol 160-4.5 mcg/actuation (Symbicort) 1 inh inhalation BID cetirizine 10 mg PO DAILY huasdoddueo-asgemqxbj-lbnggajz 200-62.5-25 mcg (Trelegy Ellipta) 1 inh inhalation DAILY 30 days ibuprofen 600 mg PO Q8H PRN ketotifen fumarate 0.025%(0.035%) (Allergy Eye (ketotifen)) 1 drp ophthalmic (eye) Q12H montelukast 10 mg PO DAILY naproxen 1 tab PO DAILY omeprazole 20 mg PO DAILY HPI Comments Details: The patient is a 34-year-old woman who has a history of asthma. Apparently she was in her usual state health until several years back when she had COVID. After she had COVID her asthma seemed to have blossomed to a worsening type of condition. She started him to use her maintenance inhaler more regularly. And then ultimately started using her rescue inhaler on a regular basis. Her symptoms gotten so significant that she is actually needing her rescue inhaler 2 to 3 times a day in conjunction went her maintenance. She has a hard time exercising because of the shortness of breath. She also had significant daytime drowsiness. She has an [place] score that is elevated 07/14. She did have a sleep study several years ago demonstrating sleep apnea. Although I do not have the report right now I will requested from sleep Medicine Services. Based on the fact the patient continues to be symptomatic will go ahead and request a home sleep study at this time. The patient may benefit from CPAP. And this will provide with better energy during the daytime for her to exercise and hopefully lose some weight. The patient however also has significant asthma and acid right now is uncontrolled with significant wheezing on exam is will try to maximize her respiratory therapy. Will also request blood work in allergy testing to see if she is a candidate for biologics. Will follow-up in a couple months with PFTs. If she has any issues prior to that she will call for an earlier assessment. 10/22/2024 the patient is here for a pulmonary follow-up visit. Since we last spoke she has been having more asthma in allergy symptoms. She started developing significant atopic dermatitis on the face and also worsening shortness of breath. She has been responding well to the Trelegy but only partially. She is still requiring a rescue inhaler on a daily basis. Sometimes more than once. She is currently going through some construction home and there is increased dust and she is wondering if is related to that. We did do allergy testing she does have significant allergens noted on the allergy testing in an elevated IgE. She has also had elevations in the eosinophil count as well. The patient also did undergo pulmonary function studies which were okay. At this point though the patient continues to have asthma symptoms on a daily basis. She is not responding to maximum respiratory therapy and she has significant allergies. Therefore, she will be a good candidate for Dupixent for both the uncontrolled asthma symptoms in addition to the atopic dermatitis. She still continues to have daytime drowsiness. She still waiting for her sleep study. Should happen the next few weeks. And also, she was noted to be anemic during the last visit. Likely iron deficiency from a menses. She did start taking vitamins. She should follow-up with her primary care doctor regarding her anemia. [facility] Medical History (Updated 10/22/24 @ 19:57 by Efrain Thompson MD) Atopic dermatitis BONNIE (obstructive sleep apnea) Allergies Asthma Surgical History History of bilateral tubal ligation Family History Maternal Grandmother Breast cancer Brain cancer Bone cancer Stomach cancer Social History Patient Tobacco Use Status: Never used Tobacco Female Reproductive History Menstrual Age of Menarche: 10 Review of Systems Const Reports daytime sleepiness and Reports snoring ENT Reports nasal congestion and Reports nasal discharge Card Denies chest pain, Reports dyspnea and Reports dyspnea on exertion Resp Reports cough, Reports dyspnea, Reports dyspnea on exertion, Reports snoring and Reports wheezing GI Reports no additional complaints Musc Reports no additional complaints Skin/Breast Reports rash Endo Reports no additional complaints Lake/Lymph Reports no additional complaints Aller/Immun Reports wheezing Physical Exam Vital Signs: Last Vital Signs Pulse 83 10/22/24 10:30 BP 120/82 10/22/24 10:30 Pulse Ox 100 10/22/24 10:30 Oxygen Delivery Method Room Air 10/22/24 10:30 Const General: comfortable HEENT Head: Yes normocephalic Neck Neck: Yes supple Chest Chest palpation & inspection: normal inspection of the chest Resp Effort & Inspection: normal respiratory effort and prolonged expiratory phase Auscultation: diminished lung sounds Cardio Heart sounds: S1 normal heart sound present and S2 normal heart sound present GI Palpation (GI): Soft to palpation Skin General skin exam: erythema Rashes: rashes noted patches face Extrem General: No clubbing and No cyanosis Assessment & Plan Assessment & Plan (1) Asthma: Code(s): J45.909 - Unspecified asthma, uncomplicated Category: Medical Qualifiers: Asthma complication type: uncomplicated Asthma persistence: persistent Asthma severity: severe Qualified Code(s): J45.50 - Severe persistent asthma, uncomplicated (2) Allergies: Code(s): T78.40XA - Allergy, unspecified, initial encounter Category: Medical Qualifiers: Encounter type: initial encounter Qualified Code(s): T78.40XA - Allergy, unspecified, initial encounter (3) BONNIE (obstructive sleep apnea): Code(s): G47.33 - Obstructive sleep apnea (adult) (pediatric) Category: Medical (4) Atopic dermatitis: Code(s): L20.9 - Atopic dermatitis, unspecified Category: Medical Qualifiers: Atopic dermatitis type: unspecified Qualified Code(s): L20.9 - Atopic dermatitis, unspecified Plan continue Trelegy 200 CHAPITO as needed and prior to exercise. Provided a spacer start Dupixent home PSG pending continue singulair continue zyrtec start Pepcid pm F/U 3-4 months Medications: New famotidine (Pepcid) 40 mg PO BEDTIME 30 tabs 6RF Coding Level of Care Code Est Pt Level 4 (98231) Diagnoses Severe persistent asthma without complication J45.50 Asthma complication type: uncomplicated Asthma persistence: persistent Asthma severity: severe Allergy, initial encounter T78.40XA Encounter type: initial encounter BONNIE (obstructive sleep apnea) G47.33 Atopic dermatitis, unspecified type L20.9 Atopic dermatitis type: unspecified Time Spent (min) 17
--- OUTSIDE RECORDS SUMMARY | 2024-10-22 12:44 | XMS_ITS | Patient Health Record ---
Author Organization [facility] Address [address] [place] [address] Care Team Providers Care Ems Helicopter Pilot Name Role Phone Sheela Powell Primary Care Provider UnavailDipesh Mccormick Unavailable [phone] ALLERGIES Allergen (clinical drug ingredient) Drug/Non Drug [...] Omeprazole 20 MG TAKE 1 CAPSULE BY [facility] EVERY MORNING Orally Once a day [...] abdominal pain (R10.13) Active confirmed Epigastric pain (55058971) Problem Gastritis (K29.70) Active confirmed Gas tritis (7530908) Problem GERD (gastroesophageal reflux disease) (K21.9) Active confirmed Gastroesophagea l reflux disease (420338747) Problem Gastroesophageal reflux (K21.9) Active confirmed Esophageal re flux finding (854221644) Encounters Encounter Location Date Provider Diagnosis [facility] [address] [place] [address] 05/30/2024 Dipesh Pendleton PLAN OF TREATMENT Future Test Test Name Order Date UPPER GI ENDOSCOPY 05/04/2022 Insurance Providers Payer Name Payer Address Payer Phone Subscriber Number Group Number Insured Name Patient Relationship to Insured Coverage Start Date Coverage End Date [employer] [address] [address] [place] [address] [id number] ASHLIE ROJAS Self - patient is the insured MEDICAL (GENERAL) HISTORY Medical History History ICD Code Asthma Denies [place],DM,CVA,renal disease GERD--EGD 04/2022 revealed a small hiatal hernia, mild changes of reflux and gastritis. Biopsies were negative for H. pylori, Avalos's esophagus, and celiac disease Neg. abdominal U/S in 2020 Surgical History Surgery Date(Month/Year) Tubal ligation 2012 11 wisdom teeth 2021
--- OUTSIDE RECORDS SUMMARY | 2024-10-22 12:44 | XMS_ITS | Clinical Summary ---
Author Organization [facility] Address [address] [place] [address] Phone Care Team Providers Care Timber Management Professor Name Role Phone Tangela Puente MD Primary [...] age to complete this topic Care Teams Timber Management Professor Relationship Specialty Start Date End Date Tangela Puente MD PCP - General 03/31/17
--- OUTSIDE RECORDS SUMMARY | 2024-10-22 12:44 | XMS_ITS | Encounter Summary ---
Author Organization [facility] Address [address] [place] [address] Phone Care Team Providers Care Oil Well Fishing Tool Operator Name Role Phone Tangela Puente MD Primary Care Provider Unava ilable Encounter Details Date Type Department Care Team (Late st Contact Info) Description 04/06/2017 Conversion Encounter [facility] - [address] [address] Social History Tobacco Use Types Packs/Day Years [...] on filedocumented in this encounter Care Teams Oil Well Fishing Tool Operator Relationship Specialty Start Date End Date Tangela Puente MD PCP - General 03/31/17 documented as of this encounter
--- OUTSIDE RECORDS SUMMARY | 2024-10-22 12:44 | XMS_ITS ---
Author Organization [facility] Address [address] [place] [address] [place] [address] Care Team Providers Care Assessment Director Name Role Phone Olgabelgica Sheela Primary Care Provider Unavailab Dipesh Black Unavailable [phone] REASON FOR VISIT OMEPRAZOLE MEDICATIONS Medication SIG (Take, Route, Fr equency, Duration) Notes Start Date End Date Status Omeprazole 20 MG TAKE 1 CAPSULE BY [facility] EVERY MORNING Orally Once a day for 90 days Active Encounters Encounter Location Date Provider Diagnosis [facility] [address] [place] [address] 05/30/2024 Dipesh Pendleton PLAN OF TREATMENT Medication Medication Name Sig Start Date Stop Date Notes Omeprazole 20 MG TAKE 1 CAPSULE BY [facility] EVERY MORNING Orally Once a day for 90 days
== END 2024-10-22 10:56 | disposition home or self-care (01) ==
PROVIDERS: PCP Internal Medicine; Visit Provider Hospitalist
DX: J45.50 Severe persistent asthma, uncomplicated (principal); T78.40XA Allergy, unspecified, initial encounter; G47.33 Obstructive sleep apnea (adult) (pediatric); L20.9 Atopic dermatitis, unspecified
CPT/HCPCS: 99214

== ENCOUNTER → 2024-10-22 10:27 | Outpatient (BNVA) | payer OTHER, SELFPAY | PROVIDERS: PCP Internal Medicine; Visit Provider Hospitalist | DX: J45.909 Unspecified asthma, uncomplicated (principal); T78.40XA Allergy, unspecified, initial encounter ==

== ENCOUNTER → 2024-11-04 07:48 | Outpatient (REF) | payer OTHER, SELFPAY | LOC: HO.SL 07:48 | PROVIDERS: PCP Internal Medicine; Visit Provider Hospitalist | DX: G47.33 Obstructive sleep apnea (adult) (pediatric) (principal); J45.909 Unspecified asthma, uncomplicated | CPT/HCPCS: 95806 ==

== ENCOUNTER → 2024-11-04 08:09 | Outpatient (BNV) | payer OTHER, SELFPAY | PROVIDERS: PCP Internal Medicine; Visit Provider Internal Medicine | DX: G47.33 Obstructive sleep apnea (adult) (pediatric) (principal) | CPT/HCPCS: 95806 ==

== ENCOUNTER 2024-11-07 14:32 | Outpatient (AMB) | payer OTHER, SELFPAY ==
[2024-11-07 14:59] VITALS: PULSE 97; O2SAT 97; BMI 46.2
--- NOTE | 2024-11-07 14:59 | A.OFFVIS_ITS ---
Vital Signs 11/07/24 14:59 Height 5 ft 1 in Weight 244 lb 11.41 oz BMI 46.2 Pulse 97 Pulse Source Pulse Oximeter Pulse Oximetry (%) 97 Oxygen Delivery Method Room Air Intake Visit Reasons: dupixent teaching Allergies Iodinated Contrast Media [IV CONTRAST] Allergy (Intermediate, Verified 11/07/24 14:59) SHORTNESS OF BREATH seafood Allergy (Verified 11/07/24 14:59) Shortness of Breath Medication List - Last Reconciled 11/07/24 by Osiris Dawson LPN albuterol sulfate 90 mcg/actuation 2 puffs inhalation Q4-6H PRN albuterol sulfate 2.5 mg (3 mL) inhalation Q4-6H PRN budesonide-formoterol 160-4.5 mcg/actuation (Symbicort) 1 inh inhalation BID cetirizine 10 mg PO DAILY dupilumab (Dupixent) loading dose: 600mg SC x 1, then 300mg SC every 2 weeks 4 weeks famotidine (Pepcid) 40 mg PO BEDTIME hvqztyuxecz-atntbgshh-iasrsjye 200-62.5-25 mcg (Trelegy Ellipta) 1 inh inhalation DAILY 30 days ibuprofen 600 mg PO Q8H PRN ketotifen fumarate 0.025%(0.035%) (Allergy Eye (ketotifen)) 1 drp ophthalmic (eye) Q12H montelukast 10 mg PO DAILY naproxen 1 tab PO DAILY omeprazole 20 mg PO DAILY HPI Comments Details: Abebe is here for a Dupixent teach she was educated on hand washing, injection preparation, administration, and disposal.?She was able to return demonstrate proper technique for hand washing, injection preparation, administration and disposal of needle and states she has no questions at this time. Medication Dupixent 300mg/2mL pre-filled Pen (patient?s own meds) Loading dose of 600mg given by the patient in 2 SQ injections; injection #1 R abdomen ;? injection #2 L abdomen Lot# [id number] expires 04/20/2026. Patient aware her next injection is in 15 days. Nurse visit only.? [facility] Medical History (Updated 10/22/24 @ 19:57 by Efrain Thompson MD) Atopic dermatitis BONNIE (obstructive sleep apnea) Allergies Asthma Surgical History History of bilateral tubal ligation Family History Maternal Grandmother Breast cancer Brain cancer Bone cancer Stomach cancer Social History Patient Tobacco Use Status: Never used Tobacco Female Reproductive History Menstrual Age of Menarche: 10 Physical Exam Vital Signs: Last Vital Signs Pulse 97 11/07/24 14:59 Pulse Ox 97 11/07/24 14:59 Oxygen Delivery Method Room Air 11/07/24 14:59 BMI result Body Mass Index 46.2 Assessment & Plan Assessment & Plan (1) Asthma: Code(s): J45.909 - Unspecified asthma, uncomplicated Category: Medical Qualifiers: Asthma complication type: uncomplicated Asthma persistence: persistent Asthma severity: severe Qualified Code(s): J45.50 - Severe persistent asthma, uncomplicated Plan start Dupixent Coding Level of Care Code Established Pt Est Pt Level 1 (60678) Patient Type Established Diagnoses Severe persistent asthma without complication J45.50 Asthma complication type: uncomplicated Asthma persistence: persistent Asthma severity: severe Comment NURSE VISIT ONLY
--- OUTSIDE RECORDS SUMMARY | 2024-11-07 17:13 | XMS_ITS | Encounter Summary ---
Author Organization [facility] Address [address] [place] [phone] Phone Care Team Providers Care Psychodramatist Name Role Phone Tangela Puente MD Primary Care Provider Unava ilable Encounter Details Date Type Department Care Team (Late st Contact Info) Description 04/06/2017 Conversion Encounter [facility] - [address] [id number] Social History Tobacco Use Types Packs/Day Years [...] on filedocumented in this encounter Care Teams Psychodramatist Relationship Specialty Start Date End Date Tangela Puente MD PCP - General 03/31/17 documented as of this encounter
--- OUTSIDE RECORDS SUMMARY | 2024-11-07 17:13 | XMS_ITS | Clinical Summary ---
Author Organization [facility] Address [address] [place] [phone] Phone Care Team Providers Care Can Filling And Closing Machine Tender Name Role Phone Tangela Puente MD Primary [...] age to complete this topic Care Teams Can Filling And Closing Machine Tender Relationship Specialty Start Date End Date Tangela Puente MD PCP - General 03/31/17
--- OUTSIDE RECORDS SUMMARY | 2024-11-07 17:13 | XMS_ITS ---
Author Organization [facility] Address [address] [place] [phone] Care Team Providers Care Junior Database Administrator Name Role Phone Sheela Powell Primary Care Provider Unavailab Dipesh Black [phone] REASON FOR VISIT OMEPRAZOLE Medications Medication SIG (Take, Route, Fr equency, Duration) Notes Start Date End Date Status Omeprazole 20 MG TAKE 1 CAPSULE BY MO UTH EVERY MORNING Orally Once a day for 90 days Active Encounters Encounter Location Date Provider Diagnosis [facility] [address] [place] [phone] 05/30/2024 Dipesh Pendleton Plan Of Treatment Medication Medication Name Sig Start Date Stop Date Notes Omeprazole 20 MG TAKE 1 CAPSULE BY MO UTH EVERY MORNING Orally Once a day for 90 days Progress Notes * ASHLIE ROJASDOB:04/1991 (33 yo F)Acc No.[id number]:05/30/2024 Patient:?ANDRADE ROJAS :1990???Age:33 Y???Sex:Female Address:[address] [place] [address] , [place], [address] * Refills? Refill Omeprazole Capsule Delayed Release, 20 MG, Orally, 90, TAKE 1 CAPSULE BY MOUTH EVERY MORNING, Once a day, 90 days, Refills=3 * true * Date:? Generated for Francesca betancur/Jt/eTransmitting on:?11/07/2024 05:13 PM EDT
--- OUTSIDE RECORDS SUMMARY | 2024-11-07 17:14 | XMS_ITS | Patient Health Record ---
Author Organization [facility] Address [address] [place] [address] Care Team Providers Care Screw Cutter Name Role Phone Sheela Powell Primary Care Provider UnavailDipesh Mccormick Unavailable [phone] Allergies Allergen (clinical drug ingredient) Drug/Non Drug Allergy documented on EMR Reaction Allergy Type Onset Date Status mri dye (uncoded) Unknown Allergy Ac tive Reason For Referral No Information Medications Medication SIG (Take, Route, Frequency, Duration) Notes [...] Omeprazole 20 MG TAKE 1 CAPSULE BY [facility] EVERY MORNING Orally Once a day for 90 days Active Immunizations Vaccine Route Administration Date Status Comme nts Influenza Unknown 07/13/2021 Administered Influenza Unknown 05/21/2022 Administered Social History Tobacco Use: Social History Observation Description Date Details (start date - stop date) Never Smoker NA - NA Tobacco Use/Smoking Question Answer Notes Patient is a nonsmoker Alcohol Screen Question Answer Notes Did you have a drink containing alcohol in the p ast year? No Points 0 Interpretation Negative Section Notes: Nonsmoker; no alcohol Nonsmoker; no alcohol Problems Problem Type SNOMED Code ICD Code Onset Dates Problem Status W/U Status Risk Notes Problem Epigastric pain (38576530) Epigastric abdominal pain (R10.13) Active confirmed Problem Gastritis (0423734) Gastritis (K29.70) Active c onfirmed Problem Gastroesophageal reflux disease (491093065) GERD (gastroesophageal reflux disease) (K21.9) Active confirmed Problem Esophageal reflux finding (964942805) Gastroesophageal reflux (K21.9) Active confirmed Encounters Encounter Location Date Provider Diagnosis [facility] [address] [facility] [address] [place] [address] 05/30/2024 Dipesh Pendleton Plan Of Treatment Future Test Test Name Order Date UPPER GI ENDOSCOPY 05/04/2022 Insurance Providers Payer Name Payer Address Payer Phone Subscriber Number Group Number Insured Name Patient Relationship to Insured Coverage Start Date Coverage End Date [employer] [address] [address] [place] [address] [id number] ASHLIE ROJAS Self - patient is the insured Medical (General) History Medical History History ICD Code Asthma Denies DE,DM,CVA,renal disease GERD--EGD 04/2022 revealed a small hiatal hernia, mild changes of reflux and gastritis. Biopsies were negative for H. pylori, Avalos's esophagus, and celiac disease Neg. abdominal U/S in 2020 Surgical History Surgery Date(Month/Year) Tubal ligation 2012 4 wisdom teeth 2021
== END 2024-11-07 15:17 | disposition home or self-care (01) ==
LOC: HO.HPS 14:33
PROVIDERS: PCP Internal Medicine; Visit Provider Hospitalist
DX: J45.50 Severe persistent asthma, uncomplicated (principal)

== ENCOUNTER → 2024-11-07 14:32 | Outpatient (BNVA) | payer OTHER, SELFPAY | PROVIDERS: PCP Internal Medicine; Visit Provider Hospitalist | DX: J45.50 Severe persistent asthma, uncomplicated (principal); Z71.89 Other specified counseling; Z79.899 Other long term (current) drug therapy | CPT/HCPCS: 99211 ==

== ENCOUNTER 2025-02-11 18:57 | Emergency (ER) | payer OTHER, SELFPAY ==
[2025-02-11 20:08] VITALS: BP 131/82; PULSE 88; RESP 18; TEMP 36.7; O2SAT 100; BMI 41.6
[2025-02-11 20:30] LABS: Hematocrit 35.4 % (37.0-47.0); Hemoglobin 11.5 g/dl (12.0-16.0); Mean Corpuscular HGB Conc 32.5 g/dl (31.0-35.0); Mean Corpuscular Hemoglobin 24.2 pg (27.0-33.0); Mean Corpuscular Volume 74.5 fL (80.0-98.0); Mean Platelet Volume 9.7 fL (9.4-12.3); Platelet Count 384 X10*3/uL (160-400); Red Blood Count 4.75 X10*6/uL (4.20-5.50); Red Cell Distribution Width 18.6 % (11.0-16.0); White Blood Count 9.1 X10*3/uL (4.8-10.8)
[2025-02-11 20:32] LABS: Appearance Urine Clear; Color Urine Yellow; Glucose Urine UA Negative (Negative); Leukocyte Esterase Urine Negative (Negative); Nitrite Urine Negative (Negative); PH 6.5 (5.0-9.0); Specific Gravity - Urine 1.025 (1.005-1.025); Urine Blood Negative (Negative); Urine Ketones 15 mg/dL (Negative); Urine Protein Negative (Neg-Trace)
--- OUTSIDE RECORDS SUMMARY | 2025-02-11 20:34 | XMS_ITS | Encounter Summary ---
Author Organization [facility] Address [address] [place] [phone] Phone Care Team Providers Care Toy Department Manager Name Role Phone Tangela Puente MD Primary Care Provider Unava ilable Encounter Details Date Type Department Care Team (Late st Contact Info) Description 04/06/2017 Conversion Encounter [facility] - [address] [address] Social History Tobacco Use Types Packs/Day Years [...] on filedocumented in this encounter Care Teams Toy Department Manager Relationship Specialty Start Date End Date Tangela Puente MD PCP - General 03/31/17 documented as of this encounter
--- NOTE | 2025-02-11 20:44 | MHC.EDTECH ---
pt was found vomiting, RN made aware. Emesis was not visualized by this tech d/t bag being thrown away in trash.
[2025-02-11 20:47] LABS: Alanine Aminotransferase 26 U/L (0-31); Albumin Level 4.5 g/dL (3.5-5.0); Alkaline Phosphatase 57 U/L (39-117); Anion Gap 15 (12-20); Aspartate Amino Transferase 20 U/L (5-31); Bilirubin Direct 0.1 mg/dL (0.0-0.5); Bilirubin Total 0.3 mg/dL (0.0-1.0); Blood Urea Nitrogen 9 mg/dL (9-16); Calcium 9.2 mg/dL (8.4-10.2); Carbon Dioxide 23 mmol/L (22-29); Chloride 106 mmol/L (96-108); Creatinine Clr Calc Pharmacy 118.6; Estimated Glomerular Filt Rate > 60; Glucose Random 95 mg/dL (60-115); Lipase 12 U/L (8-78); Magnesium 2.3 mg/dL (1.6-2.6); Potassium 3.5 mmol/L (3.3-5.1); Sodium 140 mmol/L (135-145); Total Protein 7.7 g/dL (6.5-8.0)
--- NOTE | 2025-02-11 20:55 | PC.NURSE ---
Face noted to be red with mild swelling. Airway patent, speaking in full clear sentences. Reports allergic reaction to fit testing solution for N95s/respirators. Patient works at [employer]. Spoke with ELIO Corona. Patient vomited. Cj BALLARD okayed IV insertion & Zofran 4mg IV push administration. Labs drawn and sent for analysis, results pending. Awaiting ED provider sign-up & evaluation.
[2025-02-11 21:00] LABS: UPreg QC Valid YES; Urine Pregnancy NEGATIVE (NEGATIVE)
--- NOTE | 2025-02-11 21:03 | ED.ABDPAIN ---
HPI - Abdominal Pain General Chief Complaint: Abdominal Pain Stated Complaint: pain on the rt side to back/nauseous Time Seen by Provider: 02/11/25 20:55 History of Present Illness ED Provider: Raphael Bernard MD HPI narrative: This is a 34-year-old female with right upper abdominal and flank pain proximally 1 hour ago initiated. Nausea without vomiting. No diarrhea no abdominal trauma. Thinks she may have had a history of kidney stones. No dysuria Related Data Home Medications ?Medication ?Instructions ?Recorded ?Confirmed budesonide-formoterol HFA 160 1 inh inhalation BID 05/06/22 11/07/24 mcg-4.5 mcg/actuation aerosol inhaler (Symbicort) montelukast 10 mg tablet 10 mg PO DAILY 05/06/22 11/07/24 naproxen 500 mg tablet 1 tab PO DAILY 05/06/22 11/07/24 ketotifen fumarate 0.025 % (0.035 1 drp ophthalmic (eye) Q12H 09/10/24 11/07/24 %) eye drops (Allergy Eye (ketotifen)) Previous Rx's ?Medication ?Instructions ?Recorded cetirizine 10 mg tablet 10 mg PO DAILY #30 tabs 06/02/20 omeprazole 20 mg capsule,delayed 20 mg PO DAILY #10 caps 11/21/20 release albuterol sulfate 90 mcg/actuation 2 puff inhalation Q4-6H PRN 04/07/23 aerosol inhaler shortness of breath or wheezing #6.7 grams albuterol sulfate 2.5 mg/3 mL 2.5 mg (3 mL) inhalation Q4-6H PRN 11/13/23 (0.083 %) solution for nebulization shortness of breath or wheezing #75 mL ibuprofen 600 mg tablet 600 mg PO Q8H PRN pain #30 tabs 05/02/24 fluticasone fur. 200 mcg-umeclid 1 inh inhalation DAILY 30 days #60 09/10/24 62.5 mcg-vilant 25 mcg ea inhalat.powder (Trelegy Ellipta) famotidine 40 mg tablet (Pepcid) 40 mg PO BEDTIME #30 tabs 10/22/24 dupilumab 300 mg/2 mL subcutaneous See Rx Instructions subcut Q2W 4 11/07/24 pen injector (Dupixent) weeks #4 mL ondansetron HCl 4 mg tablet 4 mg PO Q8H 4 days #12 tabs 02/11/25 Allergies Allergy/AdvReac Type Severity Reaction Status Date / Time Iodinated Contrast Media (IV Allergy Intermediate SHORTNESS Verified 02/11/25 20:10 CONTRAST) OF BREATH seafood Allergy Shortness Verified 02/11/25 20:10 of Breath PMFSH Past Medical History Medical History (Updated 02/12/25 @ 00:01 by Devon White) Atopic dermatitis BONNIE (obstructive sleep apnea) Allergies Asthma Surgical History History of bilateral tubal ligation Family History Family History Maternal Grandmother Breast cancer Brain cancer Bone cancer Stomach cancer Social History Social History Patient Tobacco Use Status: Never used Tobacco Advance Directives: No Advance Directives Information Provided: Yes Physical Exam ED Vital Signs: Vital Signs - 24 hr 02/11/25 20:08 Temperature 98.1 F Pulse Rate 88 Respiratory Rate 18 Blood Pressure 131/82 Pulse Oximetry 100 Oxygen Delivery Method Room Air BMI result Body Mass Index 41.6 Const Other: EXAM: Gen: Alert, awake, well appearing, well hydrated. Head: Atraumatic Eyes: Anicteric, Normal conjunctiva. ENT: Moist mucosa, no pallor. ? Neck: Supple. Skin: ?No observable rash or bruising on exposed or examined skin Respiratory: Breathing comfortably, No distress.Clear to auscultation bilaterally, symmetric chest expansion, No wheeze, rales, ronchi. Cardiovascular: Regular rate and rhythm. No murmurs or rub. Well perfused periphery, warm extremities. No edema. ? Abdominal: Mild epigastric tenderness Soft, no objective distension. No palpable masses or obvious organomegaly. ?No guarding, no rebound tenderness or other peritoneal findings. : No flank tenderness. Neuro: Alert. Gross movement of all extremities intact. ? Psych: Calm. Cooperative. MSK: No grossly visible deformity. Vital signs: See flowsheet Procedures Procedure Narrative Procedure Narrative: EMERGENCY ULTRASOUND INTERPRETATION-Limited Retroperitoneal (Renal) [This study was ordered, performed, and interpreted by myself. The study reveals: Impression: NO EVIDENCE OF UROLOGIC OBSTRUCTION] [Indication: FLANK PAIN Bladder: ANECHOIC URINE Right Kidney: NO HYDRONEPHROSIS Left Kidney: NO HYDRONEPHROSIS Performed by: Raphael Bernard MD Images were stored CPT: 86148] __ EMERGENCY ULTRASOUND INTERPRETATION- Limited Point of Care Biliary [This study was ordered, performed, and interpreted by myself. The study reveals: Impression: NO EVIDENCE OF ACUTE INFLAMMATION OF THE GALLBLADDER, NO EVIDENCE OF OBSTRUCTIVE BILIARY DISEASE] [Indication: RUQ PAIN Gallbladder: NO WALL THICKENING > 4MM, NO PERICHOLECYSTIC FLUID, NOT GROSSLY DILATED/HYDROPIC. -Additional: WALL MEASUREMENT: CBD MEASURMENT IF OBTAINED: Performed by: Raphael Bernard MD Images were stored CPT:08196] Medical Decision Making Medical Decision Making MDM Narrative: 34-year-old female with upper abdominal pain nearly completely relieved after vomiting. Reassuring biliary and right renal ultrasound Reassuring lab work. Patient comfortable p.o. tolerant DC with Zofran could be gastritis food-borne illness gas Lab Data 02/11/25 20:25 02/11/25 20:25 Labs: Lab Results 02/11/25 02/11/25 Range/Units 20:21 20:25 WBC 9.1 (4.8-10.8) X10*3/uL RBC 4.75 (4.20-5.50) X10*6/uL Hgb 11.5 L (12.0-16.0) g/dl Hct 35.4 L (37.0-47.0) % MCV 74.5 L (80.0-98.0) fL MCH 24.2 L (27.0-33.0) pg MCHC 32.5 (31.0-35.0) g/dl RDW 18.6 H (11.0-16.0) % Plt Count 384 (160-400) X10*3/uL MPV 9.7 (9.4-12.3) fL Absolute Nucleated RBC 0.000 (0.0-0.012) X10*3/uL Nucleated RBC % (auto) 0.0 (0.0-0.2) /100WBC Sodium 140 (135-145) mmol/L Potassium 3.5 (3.3-5.1) mmol/L Chloride 106 (96-108) mmol/L Carbon Dioxide 23 (22-29) mmol/L Anion Gap 15 (12-20) BUN 9 (9-16) mg/dL Creatinine 0.71 (0.5-1.4) mg/dL Estim Creat Clear Calc 118.6 Estimated GFR > 60 Random Glucose 95 (60-115) mg/dL Calcium 9.2 (8.4-10.2) mg/dL Magnesium 2.3 (1.6-2.6) mg/dL Total Bilirubin 0.3 (0.0-1.0) mg/dL Direct Bilirubin 0.1 (0.0-0.5) mg/dL AST 20 (5-31) U/L ALT 26 (0-31) U/L Alkaline Phosphatase 57 (39-117) U/L Total Protein 7.7 (6.5-8.0) g/dL Albumin 4.5 (3.5-5.0) g/dL Lipase 12 (8-78) U/L Urine Color Yellow Urine Appearance Clear Urine pH 6.5 (5.0-9.0) Ur Specific [place] 1.025 (1.005-1.025) Urine Protein Negative (Neg-Trace) mg/dL Urine Glucose (UA) Negative (Negative) mg/dL Urine Ketones 15 (Negative) mg/dL Urine Blood Negative (Negative) Urine Nitrite Negative (Negative) Ur Leukocyte Esterase Negative (Negative) Urine Test NEGATIVE (NEGATIVE) Medications Administered Discontinued Medications Generic Name Dose Route Start Last Admin Trade Name Freq PRN Reason Stop Dose Admin Sodium Chloride 1,000 mls @ 999 mls/hr 02/11/25 21:00 02/11/25 22:37 Ns IV 02/11/25 22:00 Infused .Q1H1M KATELYN Infusion Ketorolac Tromethamine 15 mg 02/11/25 20:56 02/11/25 22:26 Ketorolac Tromethamine 15 Mg/Ml Vial IVPUSH 02/11/25 20:57 15 mg ONCE ONE Administration Morphine Sulfate 2 mg 02/11/25 20:56 02/11/25 22:25 Morphine Sulfate 2 Mg/Ml Cartridge IVPUSH 02/11/25 20:57 Not Given ONCE ONE Protocol Ondansetron HCl 4 mg 02/11/25 20:54 02/11/25 21:10 Ondansetron Hcl 4 Mg/2 Ml Vial IVPUSH 02/11/25 20:55 4 mg ONCE ONE Administration Discharge Plan Discharge Clinical Impression: Abdominal pain Patient Disposition: Home, Self-Care Instructions: Abdominal Pain (ED) Additional Instructions: DISCHARGE DIAGNOSES: Abdominal pain unclear cause at this time but relieved and improved in the emergency department Gallbladder stones excluded Obstruction or kidney infection or urine infection excluded HISTORY OF PRESENTATION abdominal pain relieved with vomiting EMERGENCY DEPARTMENT COURSE,TESTS, TREATMENTS: While in the ED today you had an ultrasound of your gallbladder and kidney which were normal and reassuring you had reassuring normal lab work and urinalysis DISCHARGE MEDICATIONS: ?[We have made no changes to your regular medication regimen] we have added nausea medicine as needed FOLLOW-UP: ?Call your primary or general physician soon as possible to discuss your symptoms, your ED visit and to discuss follow up plans Call your primary doctor for follow up INSTRUCTIONS ?& RETURN PRECAUTIONS: If any symptoms change first call your primary physician, if it is after-hours your primary doctors office should have a provider software applications engineer you can speak with. If the symptoms are severe or very concerning to you then call 911 or return to the ED. Raphael Bernard MD Emergency Physician [facility] Prescriptions: New ondansetron HCl 4 mg tablet 4 mg PO Q8H 4 Days Qty: 12 0RF No Action ibuprofen 600 mg tablet 600 mg PO Q8H PRN (Reason: pain) Qty: 30 0RF Dupixent Pen 300 mg/2 mL pen injector See Rx Instructions subcut Q2W 28 Days Qty: 4 11RF Rx Instructions: loading dose: 600mg SC x 1, then 300mg SC every 2 weeks cetirizine 10 mg tablet 10 mg PO DAILY Qty: 30 2RF omeprazole 20 mg capsule,delayed release(DR/EC) 20 mg PO DAILY Qty: 10 0RF naproxen 500 mg tablet 1 tab PO DAILY montelukast 10 mg Tablet 10 mg PO DAILY budesonide-formoterol [Symbicort] 160-4.5 mcg/actuation Hfa Aerosol Inhaler 1 inh INHALATION BID albuterol sulfate 2.5 mg /3 mL (0.083 %) solution for nebulization 2.5 mg inhalation Q4-6H PRN (Reason: shortness of breath or wheezing) Qty: 75 0RF albuterol sulfate 90 mcg/actuation HFA aerosol inhaler 2 puff inhalation Q4-6H PRN (Reason: shortness of breath or wheezing) Qty: 6.7 0RF famotidine [Pepcid] 40 mg tablet 40 mg PO BEDTIME Qty: 30 6RF ketotifen fumarate [Allergy Eye (ketotifen)] 0.025 % (0.035 %) drops 1 drp ophthalmic (eye) Q12H Trelegy Ellipta 200-62.5-25 mcg blister with device 1 inh inhalation DAILY 30 Days Qty: 60 12RF Stand Alone Forms: Work/School Release Interventions: ED Discharge Assessment Last Done: 02/11/25 22:40 Discharge Date/Time: 02/11/25 22:41 Print Language: Bengali
[2025-02-11] MEDS: ondansetron HCL 4 MG/2 ML VIAL IVPUSH (21:10)
[2025-02-11] MEDS: 0.9 % Sodium Chloride 1,000 ML 999 ML IV (21:36)
[2025-02-11] MEDS: Ketorolac Tromethamine 15 MG/ML VIAL IVPUSH (22:26)
--- NOTE | 2025-02-11 22:34 | PC.NURSE ---
Patient refused Morphine. Accepted Toradol. Preparing for discharge home.
[2025-02-11 22:40] VITALS: BP 131/82; PULSE 88; RESP 18; TEMP 36.7; O2SAT 100
== END 2025-02-11 22:41 | disposition home or self-care (01) ==
PROVIDERS: Emergency Provider Emergency Medicine; PCP Internal Medicine
DX: R10.11 Right upper quadrant pain (principal); J45.909 Unspecified asthma, uncomplicated; Z79.899 Other long term (current) drug therapy
CPT/HCPCS: 36415; 80053; 81003; 81025; 82248; 83690; 83735; 85027; 96361; 96374; 96375; 99284; J1885; J2405

== ENCOUNTER 2025-02-24 10:18 | Outpatient (AMB) | payer OTHER, SELFPAY ==
--- NOTE | 2025-02-24 10:32 | A.OFFVIS_ITS ---
Vital Signs 02/24/25 10:33 Height 5 ft 1 in Weight 228 lb 2.855 oz BMI 43.1 BP 128/84 Blood Pressure Location Lt brachial Position Sitting Pulse 74 Pulse Source Pulse Oximeter Pulse Oximetry (%) 97 Oxygen Delivery Method Room Air Intake Visit Reasons: Asthma Accompanied by: Self / Same As Patient Allergies Iodinated Contrast Media (IV CONTRAST) Allergy (Intermediate, Verified 02/24/25 10:37) SHORTNESS OF BREATH seafood Allergy (Verified 02/24/25 10:37) Shortness of Breath HPI Comments Details: The patient is a 34-year-old woman who has a history of asthma. Apparently she was in her usual state health until several years back when she had COVID. After she had COVID her asthma seemed to have blossomed to a worsening type of condition. She started him to use her maintenance inhaler more regularly. And then ultimately started using her rescue inhaler on a regular basis. Her symptoms gotten so significant that she is actually needing her rescue inhaler 2 to 3 times a day in conjunction went her maintenance. She has a hard time exercising because of the shortness of breath. She also had significant daytime drowsiness. She has an A[place]ons[place] score that is elevated 07/14. She did have a sleep study several years ago demonstrating sleep apnea. Although I do not have the report right now I will requested from [facility] Medicine Services. Based on the fact the patient continues to be symptomatic will go ahead and request a home sleep study at this time. The patient may benefit from CPAP. And this will provide with better energy during the daytime for her to exercise and hopefully lose some weight. The patient however also has significant asthma and acid right now is uncontrolled with significant wheezing on exam is will try to maximize her respiratory therapy. Will also request blood work in allergy testing to see if she is a candidate for biologics. Will follow-up in a couple months with PFTs. If she has any issues prior to that she will call for an earlier assessment. 10/22/2024 the patient is here for a pulmonary follow-up visit. Since we last spoke she has been having more asthma in allergy symptoms. She started developing significant atopic dermatitis on the face and also worsening shortness of breath. She has been responding well to the Trelegy but only partially. She is still requiring a rescue inhaler on a daily basis. Sometimes more than once. She is currently going through some construction home and there is increased dust and she is wondering if is related to that. We did do allergy testing she does have significant allergens noted on the allergy testing in an elevated IgE. She has also had elevations in the eosinophil count as well. The patient also did undergo pulmonary function studies which were okay. At this point though the patient continues to have asthma symptoms on a daily basis. She is not responding to maximum respiratory therapy and she has significant allergies. Therefore, she will be a good candidate for Dupixent for both the uncontrolled asthma symptoms in addition to the atopic dermatitis. She still continues to have daytime drowsiness. She still waiting for her sleep study. Should happen the next few weeks. And also, she was noted to be anemic during the last visit. Likely iron deficiency from a menses. She did start taking vitamins. She should follow-up with her primary care doctor regarding her anemia. 02/24/2025 the patient is here for a pulmonary follow-up visit. Overall she is doing very well. She did start the CPAP therapy for her significant sleep apnea. Her Aaronsburg score is already significantly improve. She is sleeping better she is feeling better overall. She is tolerating the machine the whole night more than 4 hours. Her mask is also fitting well. She is working closely with the [facility]. In the meantime she also continues on Dupixent injections for allergies and severe asthma. He seems to be very affecting beneficial for her. She does have a little irritation to the eyes but minimal at this time she will monitor it closely. I explained to her that there may be a side effect from the medication. She continues on the Trelegy. She is on the 200 mcg dose. Will try to decrease her down to 100 mcg hopefully she can not tolerate that as we deescalate some of her therapy while on the biologic therapy. She continues to do well she is actively trying to lose weight she has already done great. She understands that even losing the way she may still have the sleep apnea symptoms. Will still monitor her closely. She will follow-up in 6 months. [facility] Medical History (Updated 02/12/25 @ 00:01 by Devon White) Atopic dermatitis BONNIE (obstructive sleep apnea) Allergies Asthma Surgical History History of bilateral tubal ligation Family History Maternal Grandmother Breast cancer Brain cancer Bone cancer Stomach cancer Social History Patient Tobacco Use Status: Never used Tobacco Female Reproductive History Menstrual Age of Menarche: 10 Review of Systems Const Denies daytime sleepiness and Reports weight loss ENT Reports nasal congestion and Reports nasal discharge Card Denies chest pain, Denies dyspnea and Reports dyspnea on exertion Resp Reports cough, Denies dyspnea, Reports dyspnea on exertion and Reports wheezing GI Reports no additional complaints Musc Reports no additional complaints Skin/Breast Reports rash Endo Reports no additional complaints Lake/Lymph Reports no additional complaints Aller/Immun Reports wheezing Physical Exam Vital Signs: Last Vital Signs Pulse 74 02/24/25 10:33 BP 128/84 02/24/25 10:33 Pulse Ox 97 02/24/25 10:33 Oxygen Delivery Method Room Air 02/24/25 10:33 BMI result Body Mass Index 43.1 Const General: comfortable HEENT Head: Yes normocephalic Neck Neck: Yes supple Chest Chest palpation & inspection: normal inspection of the chest Resp Effort & Inspection: normal respiratory effort Auscultation: diminished lung sounds Cardio Heart sounds: S1 normal heart sound present and S2 normal heart sound present GI Palpation (GI): Soft to palpation Skin General skin exam: erythema Rashes: rashes noted Extrem General: No clubbing and No cyanosis Assessment & Plan Assessment & Plan (1) Asthma: Code(s): J45.909 - Unspecified asthma, uncomplicated Category: Medical Qualifiers: Asthma complication type: uncomplicated Asthma persistence: persistent Asthma severity: severe Qualified Code(s): J45.50 - Severe persistent asthma, uncomplicated (2) Allergies: Code(s): T78.40XA - Allergy, unspecified, initial encounter Category: Medical Qualifiers: Encounter type: initial encounter Qualified Code(s): T78.40XA - Allergy, unspecified, initial encounter (3) BONNIE (obstructive sleep apnea): Code(s): G47.33 - Obstructive sleep apnea (adult) (pediatric) Category: Medical (4) Atopic dermatitis: Code(s): L20.9 - Atopic dermatitis, unspecified Category: Medical Qualifiers: Atopic dermatitis type: unspecified Qualified Code(s): L20.9 - Atopic dermatitis, unspecified Plan continue Trelegy 200-->100 CHAPITO as needed and prior to exercise. Provided a spacer conitnue Dupixent continue APAP continue singulair continue zyrtec completed Pepcid pm F/U 6-8 months Medications: New [id number]-vyvkcobmg-rknnymby 100-62.5-25 mcg (Trelegy Ellipta) 1 inh i nhalation DAILY 60 ea 11RF 30 days J44.9 - Chronic obstructive pulmonary disease, unspecified Discontinued jjiasbkzxlc-fokqedhda-qjwnylai 200-62.5-25 mcg (Trelegy Ellipta) Discontinued Reason: Doctor's Order 1 inh inhalation DAILY 30 days 60 ea 12RF Coding Level of Care Code Est Pt Level 4 (60733) Diagnoses Severe persistent asthma without complication J45.50 Asthma complication type: uncomplicated Asthma persistence: persistent Asthma severity: severe Allergy, initial encounter T78.40XA Encounter type: initial encounter BONNIE (obstructive sleep apnea) G47.33 Atopic dermatitis, unspecified type L20.9 Atopic dermatitis type: unspecified Time Spent (min) 17
[2025-02-24 10:33] VITALS: BP 128/84; PULSE 74; O2SAT 97; BMI 43.1
--- OUTSIDE RECORDS SUMMARY | 2025-02-24 11:06 | XMS_ITS | Encounter Summary ---
Author Organization [facility] Address [address] [place] [id number] Phone Care Team Providers Care Cable Television Access Coordinator Name Role Phone Tangela Puente MD Primary Care Provider Unava ilable Encounter Details Date Type Department Care Team (Late st Contact Info) Description 04/06/2017 Conversion Encounter [facility] - [address] [address] Social History Tobacco Use Types Packs/Day Years [...] on filedocumented in this encounter Care Teams Cable Television Access Coordinator Relationship Specialty Start Date End Date Tangela Puente MD PCP - General 03/31/17 documented as of this encounter
--- OUTSIDE RECORDS SUMMARY | 2025-02-24 11:06 | XMS_ITS | Patient Health Record ---
Author Organization [facility] Address [address] [place] [address] Care Team Providers Care Preparation Room Manager Name Role Phone Sheela Powell Primary Care Provider UnavailDipesh Mccormick Unavailable [phone] Allergies Allergen (clinical drug ingredient) Drug/Non Drug [...] Omeprazole 20 MG TAKE 1 CAPSULE BY [facility] EVERY MORNING Orally Once a day [...] W/U Status Risk Notes Problem Epigastric pain (79567920) Epigastric abdominal pain (R10.13) Active confirmed Problem Gastritis (9504460) Gastritis (K29.70) Active c onfirmed Problem Gastroesophageal reflux disease (217344261) GERD (gastroesophageal reflux disease) (K21.9) Active confirmed Problem Esophageal reflux finding (688943505) Gastroesophageal reflux (K21.9) Active confirmed Encounters Encounter Location Date Provider Diagnosis [facility] [address] [facility] [address] [place] [address] 05/30/2024 Dipesh Pendleton Plan Of Treatment Future Test Test Name Order Date UPPER GI ENDOSCOPY 05/04/2022 Insurance Providers Payer Name Payer Address Payer Phone Subscriber Number Group Number Insured Name Patient Relationship to Insured Coverage Start Date Coverage End Date [employer] [address] [address] [place] [address] [id number] ASHLIE ROJAS Self - patient is the insured Medical (General) History Medical History History ICD Code Asthma Denies LA,DM,CVA,renal disease GERD--EGD 04/2022 revealed a small hiatal hernia, mild changes of reflux and gastritis. Biopsies were negative for H. pylori, Avalos's esophagus, and celiac disease Neg. abdominal U/S in 2020 Surgical History Surgery Date(Month/Year) Tubal ligation 2012 4 wisdom teeth 2021
== END 2025-02-24 10:59 | disposition home or self-care (01) ==
LOC: HO.HPS 10:18
PROVIDERS: PCP Internal Medicine; Visit Provider Hospitalist
DX: J45.50 Severe persistent asthma, uncomplicated (principal); T78.40XA Allergy, unspecified, initial encounter; G47.33 Obstructive sleep apnea (adult) (pediatric); L20.9 Atopic dermatitis, unspecified
CPT/HCPCS: 99214